=== PATIENT | female | born 1940 | race Caucasian/White ===

== ENCOUNTER 2017-11-14 12:10 | Inpatient (IN) ==
[2017-11-14] MEDS ORDERED: Sod Chloride 0.9% Inj 1,000 ML IV.SIG ONE (12:55)
--- NOTE | 2017-11-14 13:06 | ED ---
HPI General Chief complaint: GI Bleed Stated complaint: GI Complaint Time Seen by Provider: 11/14/17 12:49 Source: patient and EMS Mode of arrival: EMS Limitations: no limitations History of Present Illness HPI Narrative: 77-year-old female presents the ED via EMS after being found down at home by her brother. The brother told EMS that he saw the patient yesterday morning around 11am. On presentation the patient is shivering, cool to the touch, covered in coffee ground emesis and bloody stool. She is oriented to self and situation. She states that "I saw a lot of blood in my stool last night." She denies headache, dizziness, vision changes, CP, SOB, cough, abdominal pain, dysuria, limitations to ROM of the extremities. The patient endorses drinking "sangria a few days a week." EMS states that there was smeared blood on the floors of her home as if she had been sliding around the floor. The patients brother reported to EMS that the patient "has never been to a doctor and takes supplements from the feed store." Related Data Home Medications Medication Instructions Recorded Confirmed No Known Home Medications 11/14/17 11/14/17 Allergies Allergy/AdvReac Type Severity Reaction Status Date / Time No Known Allergies Allergy Verified 11/14/17 13:02 Review of Systems ROS: all other systems reviewed are negative [facility] Medical History Medical History Patient denies medical problems (Acute) Surgical History Surgical History No history of previous surgery (Acute) Social History Social History Substance History: No History of Abuse Smoking Status: Never smoker How Often Do You Have a Drink Containing Alcohol: 2 to 3 times a week Recent Travel in [facility] within the Last 8 Weeks: No Recent Out of Country Travel within the Last 8 Weeks: No Exam Narrative Exam Narrative: GENERAL: Well developed thin white female, shivering, covered in feces and vomit, in NAD. SKIN: Focused skin assessment cool, dry. Multiple ecchymosis noted on the posterior aspect of the extremities and back. HEAD: Atraumatic. Normocephalic. EYES: Pupils equal and round. No scleral icterus. No injection or drainage. ENT: No nasal bleeding or discharge. Mucous membranes pink and dry. NECK: Trachea midline. No JVD. CARDIOVASCULAR: Regular rate and rhythm. No murmur appreciated. RESPIRATORY: No accessory muscle use. Clear to auscultation. Breath sounds clear and equal bilaterally. GASTROINTESTINAL: Abdomen soft, non-tender, nondistended. Active bowel sounds. Hepatic and splenic margins not palpable. MUSCULOSKELETAL: No obvious deformities. No clubbing. No cyanosis. No edema. Palpable pulses on all extremities. No TTP or limited R OM of the upper and lower extremities bilaterally. Neurovascularly intact distally on each extremity. NEUROLOGICAL: Awake, confused. No obvious cranial nerve deficits. Motor grossly within normal limits. Normal speech. PSYCHIATRIC: Confused, cooperative, follows commands. Course Initial Documented Vital Signs Temperature 90.5 F L 11/14/17 12:47 Pulse Rate 58 L 11/14/17 12:47 Respiratory Rate 24 11/14/17 12:47 Blood Pressure 117/78 11/14/17 12:47 Last Documented Vital Signs Temperature 97.6 F 11/14/17 15:40 Pulse Rate 79 11/14/17 15:40 Respiratory Rate 18 11/14/17 15:40 Blood Pressure 129/67 11/14/17 15:40 Pulse Oximetry 100 11/14/17 15:40 Medical Decision Making KLEVER Attestation KLEVER supervised visit: Yes Attestation: I, Dr. Padron, have reviewed the advance practice practitioner' s documentation and am in agreement, met with the patient face to face, made the diagnosis, and the medical decision making was done by me. *My assessment and Findings: 77-year-old female who presents to the emergency department via EMS after she was found lying on her floor with an apparent GI bleed. According to family members, the brother saw the patient last night, normal, at 11 PM. The patient is a somewhat limited historian, does not know how many days she has been lying on the floor. She states she has been sliding around the floor for movement. The patient denies taking any anticoagulants. Upon arrival the patient was noted to have a core rectal temperature 90.5 with shivering. He was also noted the patient had large areas of ecchymosis on the back and lower extremities bilaterally as well as the upper extremities. It appears the patient has had multiple falls and/or trauma. 77-year-old female presents to the ED via EMS after being found down in her house for unknown time. Per EMS report the patient was covered in feces and vomit and blood. There is some evidence that the patient had been sliding around on the floor. On arrival the patient is alert, oriented to self and situation. She is unable to give much meaningful history other than "I had a lot of blood in my stool last night." She denies headache, dizziness, chest pain, palpitations, shortness of breath, abdominal pain. She admits to drinking alcohol nearly daily. Patient is cool and shivering, rectal temp of 90.5. Warm fluids and warming blanket were placed. Patient was administered loading dose of Protonix and drip was initiated. EKG reviewed reviewed by Dr. Padron as above. Troponin negative 1. CXR no acute findings per radiology read. Ammonia 62. CK: 400 CBC:WBC 16.9, 87.5% neutrophils, RBC 249. Hgb 8.6. CMP: BUN 55, creatinine 2.15. Potassium 3.4. Calcium 7.8, corrects when hypoalbuminemia is accounted for. No culture indicated of the UA. Tox screen positive for benzodiazepines. CT brain: Atrophy. Patient's brother arrives at bedside and states that the patient is a chronic heavy drinker. He reports that she has been confused over the last few days and he saw her around 11:00 yesterday afternoon. He states that she had a fall earlier last week but was not evaluated at that time. On recheck BP 131/75, pulse 80, temp improved to 96.9, O2 sats 100% on room air with respiratory rate of 18. Plan to admit the patient to the [facility]. I discussed this with the family member and patient who are agreeable. GI consult placed. I discussed the case with who agrees to accept the patient to the medicine service. [facility] Narrative Medical Screen Exam Complete: Yes Emergency Medical Condition: Yes Differential Diagnosis Differential Diagnosis: encephalopathy versus GI bleed versus anemia versus metabolic derangement versus rhabdomyolysis versus ICH versus ACS versus other Lab Data Result diagrams: 11/14/17 13:10 11/14/17 13:10 Lab Results 11/14/17 11/14/17 11/14/17 Range/Units 13:10 13:10 13:10 WBC 16.9 H (4.0-11.0) th/mm3 RBC 2.49 L (4.00-5.30) mil/mm3 Hgb 8.6 L (11.6-15.3) gm/dL Hct 25.8 L (35.0-46.0) % MCV 103.6 H (80.0-100.0) fL MCH 34.5 H (27.0-34.0) pg MCHC 33.3 (32.0-36.0) % RDW 14.5 (11.6-17.2) % Plt Count 197 (150-450) th/mm3 MPV 9.1 (7.0-11.0) fL Prelim Diff (Auto) Slide review pending Neut % (Auto) 87.5 H (16.0-70.0) % Lymph % (Auto) 6.9 L (9.0-44.0) % [place] % (Auto) 5.5 (0.0-8.0) % Eos % (Auto) 0.0 (0.0-4.0) % Baso % (Auto) 0.1 (0.0-2.0) % Neut # (Auto) 14.8 H (1.8-7.7) th/mm3 Lymph # (Auto) 1.2 (1.0-4.8) th/mm3 [place] # (Auto) 0.9 (0.0-0.9) th/mm3 Eos # (Auto) 0.0 (0.0-0.4) th/mm3 Baso # (Auto) 0.0 (0.0-0.2) th/mm3 WBC Differential Manual diff final Seg Neuts % (Manual) 88 H (16-70) % Band Neuts % (Manual) 7 H (0-6) % Lymphocytes % (Manual) 2 L (9-44) % Metamyelocytes % (Man) 2 H (0-1) % Promyelocytes % (Man) 1 H (0-0) % Abs Neuts (Manual) 16.6 H (1.8-7.7) th/mm3 Differential Comment . Platelet Estimate Normal (Normal) Platelet Morphology Normal (Normal) PT 12.0 H (9.8-11.6) sec INR 1.2 Ratio Sodium 140 (136-145) meq/L Potassium 3.4 L (3.5-5.1) meq/L Chloride 100 (98-107) meq/L Carbon Dioxide 20.3 L (21.0-32.0) meq/L Anion Gap 20 H (5-15) meq/L BUN 55 H (7-18) mg/dL Creatinine 2.15 H (0.50-1.00) mg/dL Estimated GFR 22 L (>89) mL/min POC Glucose (68-110) mg/dl Random Glucose 197 H (74-106) mg/dL Calcium 7.8 L (8.5-10.1) mg/dL Total Bilirubin 0.6 (0.2-1.0) mg/dL AST 42 H (15-37) U/L ALT 38 (10-53) U/L Alkaline Phosphatase 63 (45-117) U/L Ammonia (11-32) mcmol/L Total Creatine Kinase 400 H (26-192) U/L CK-MB (CK-2) 18.1 H (0.5-3.6) ng/mL CK-MB (CK-2) % 4.5 H* (0.0-4.0) % Troponin I 0.05 (0.02-0.05) ng/mL Total Protein 5.6 L (6.4-8.2) g/dL Albumin 2.7 L (3.4-5.0) g/dL Urine Color (Yellw/Straw) Urine Clarity (Clear) Urine pH (5.0-8.5) Ur Specific [place] (1.002-1.035) Urine Protein (Neg-Trace) mg/dL Urine Glucose (UA) (Negative) mg/dL Urine Ketones (Negative) mg/dL Urine Occult Blood (Negative) Urine Nitrate (Negative) Urine Bilirubin (Negative) Urine Urobilinogen (Less than 2) mg/dL Ur Leukocyte Esterase (Negative) Urine RBC (0-3) /hpf Urine WBC (0-5) /hpf Ur Squamous Epith Cells (0-5) /hpf Hyaline Casts (0-3) /lpf Urine Mucus (Occasional) /lpf Micro UA Comment Ur Microscopic Review Urine Culture Comments Urine Opiates Screen (Neg) Ur Barbiturates Screen (Neg) Ur Amphetamines Screen (Neg) U Benzodiazepines Scrn (Neg) Urine Cocaine Screen (Neg) U Cannabinoids Screen (Neg) Serum Alcohol Less than 3 (0-5) mg/dL Blood Type Blood Type Recheck Antibody Screen 11/14/17 11/14/17 11/14/17 Range/Units 13:10 13:10 13:10 WBC (4.0-11.0) th/mm3 RBC (4.00-5.30) mil/mm3 Hgb (11.6-15.3) gm/dL Hct (35.0-46.0) % MCV (80.0-100.0) fL MCH (27.0-34.0) pg MCHC (32.0-36.0) % RDW (11.6-17.2) % Plt Count (150-450) th/mm3 MPV (7.0-11.0) fL Prelim Diff (Auto) Neut % (Auto) (16.0-70.0) % Lymph % (Auto) (9.0-44.0) % [place] % (Auto) (0.0-8.0) % Eos % (Auto) (0.0-4.0) % Baso % (Auto) (0.0-2.0) % Neut # (Auto) (1.8-7.7) th/mm3 Lymph # (Auto) (1.0-4.8) th/mm3 [place] # (Auto) (0.0-0.9) th/mm3 Eos # (Auto) (0.0-0.4) th/mm3 Baso # (Auto) (0.0-0.2) th/mm3 WBC Differential Seg Neuts % (Manual) (16-70) % Band Neuts % (Manual) (0-6) % Lymphocytes % (Manual) (9-44) % Metamyelocytes % (Man) (0-1) % Promyelocytes % (Man) (0-0) % Abs Neuts (Manual) (1.8-7.7) th/mm3 Differential Comment Platelet Estimate (Normal) Platelet Morphology (Normal) PT (9.8-11.6) sec INR Ratio Sodium (136-145) meq/L Potassium (3.5-5.1) meq/L Chloride (98-107) meq/L Carbon Dioxide (21.0-32.0) meq/L Anion Gap (5-15) meq/L BUN (7-18) mg/dL Creatinine (0.50-1.00) mg/dL Estimated GFR (>89) mL/min POC Glucose 229 H (68-110) mg/dl Random Glucose (74-106) mg/dL Calcium (8.5-10.1) mg/dL Total Bilirubin (0.2-1.0) mg/dL AST (15-37) U/L ALT (10-53) U/L Alkaline Phosphatase (45-117) U/L Ammonia (11-32) mcmol/L Total Creatine Kinase Cancelled (26-192) U/L CK-MB (CK-2) (0.5-3.6) ng/mL CK-MB (CK-2) % (0.0-4.0) % Troponin I (0.02-0.05) ng/mL Total Protein (6.4-8.2) g/dL Albumin (3.4-5.0) g/dL Urine Color (Yellw/Straw) Urine Clarity (Clear) Urine pH (5.0-8.5) Ur Specific [place] (1.002-1.035) Urine Protein (Neg-Trace) mg/dL Urine Glucose (UA) (Negative) mg/dL Urine Ketones (Negative) mg/dL Urine Occult Blood (Negative) Urine Nitrate (Negative) Urine Bilirubin (Negative) Urine Urobilinogen (Less than 2) mg/dL Ur Leukocyte Esterase (Negative) Urine RBC (0-3) /hpf Urine WBC (0-5) /hpf Ur Squamous Epith Cells (0-5) /hpf Hyaline Casts (0-3) /lpf Urine Mucus (Occasional) /lpf Micro UA Comment Ur Microscopic Review Urine Culture Comments Urine Opiates Screen (Neg) Ur Barbiturates Screen (Neg) Ur Amphetamines Screen (Neg) U Benzodiazepines Scrn (Neg) Urine Cocaine Screen (Neg) U Cannabinoids Screen (Neg) Serum Alcohol (0-5) mg/dL Blood Type O Negative Blood Type Recheck Required Antibody Screen Negative 11/14/17 11/14/17 11/14/17 Range/Units 13:14 13:25 13:25 WBC (4.0-11.0) th/mm3 RBC (4.00-5.30) mil/mm3 Hgb (11.6-15.3) gm/dL Hct (35.0-46.0) % MCV (80.0-100.0) fL MCH (27.0-34.0) pg MCHC (32.0-36.0) % RDW (11.6-17.2) % Plt Count (150-450) th/mm3 MPV (7.0-11.0) fL Prelim Diff (Auto) Neut % (Auto) (16.0-70.0) % Lymph % (Auto) (9.0-44.0) % [place] % (Auto) (0.0-8.0) % Eos % (Auto) (0.0-4.0) % Baso % (Auto) (0.0-2.0) % Neut # (Auto) (1.8-7.7) th/mm3 Lymph # (Auto) (1.0-4.8) th/mm3 [place] # (Auto) (0.0-0.9) th/mm3 Eos # (Auto) (0.0-0.4) th/mm3 Baso # (Auto) (0.0-0.2) th/mm3 WBC Differential Seg Neuts % (Manual) (16-70) % Band Neuts % (Manual) (0-6) % Lymphocytes % (Manual) (9-44) % Metamyelocytes % (Man) (0-1) % Promyelocytes % (Man) (0-0) % Abs Neuts (Manual) (1.8-7.7) th/mm3 Differential Comment Platelet Estimate (Normal) Platelet Morphology (Normal) PT (9.8-11.6) sec INR Ratio Sodium (136-145) meq/L Potassium (3.5-5.1) meq/L Chloride (98-107) meq/L Carbon Dioxide (21.0-32.0) meq/L Anion Gap (5-15) meq/L BUN (7-18) mg/dL Creatinine (0.50-1.00) mg/dL Estimated GFR (>89) mL/min POC Glucose (68-110) mg/dl Random Glucose (74-106) mg/dL Calcium (8.5-10.1) mg/dL Total Bilirubin (0.2-1.0) mg/dL AST (15-37) U/L ALT (10-53) U/L Alkaline Phosphatase (45-117) U/L Ammonia 62 H (11-32) mcmol/L Total Creatine Kinase (26-192) U/L CK-MB (CK-2) (0.5-3.6) ng/mL CK-MB (CK-2) % (0.0-4.0) % Troponin I (0.02-0.05) ng/mL Total Protein (6.4-8.2) g/dL Albumin (3.4-5.0) g/dL Urine Color Kim (Yellw/Straw) Urine Clarity Cloudy H (Clear) Urine pH 5.0 (5.0-8.5) Ur Specific [place] 1.023 (1.002-1.035) Urine Protein 30 H (Neg-Trace) mg/dL Urine Glucose (UA) 50 (Negative) mg/dL Urine Ketones Trace H (Negative) mg/dL Urine Occult Blood Small H (Negative) Urine Nitrate Negative (Negative) Urine Bilirubin Negative (Negative) Urine Urobilinogen Less than 2 (Less than 2) mg/dL Ur Leukocyte Esterase Trace H (Negative) Urine RBC 1 (0-3) /hpf Urine WBC 4 (0-5) /hpf Ur Squamous Epith Cells 2 (0-5) /hpf Hyaline Casts 62 (0-3) /lpf Urine Mucus Moderate H (Occasional) /lpf Micro UA Comment Cath-culture not ind Ur Microscopic Review Not Reportable Urine Culture Comments Cath-cult not ind Urine Opiates Screen Neg (Neg) Ur Barbiturates Screen Neg (Neg) Ur Amphetamines Screen Neg (Neg) U Benzodiazepines Scrn Pos H (Neg) Urine Cocaine Screen Neg (Neg) U Cannabinoids Screen Neg (Neg) Serum Alcohol (0-5) mg/dL Blood Type Blood Type Recheck Antibody Screen Imaging Data Radiologist's impression: Chest X-Ray 11/14/17 12:53 CONCLUSION: 1. Negative portable chest. Head CT 11/14/17 12:55 CONCLUSION: 1. Atrophy. . ECG Data EKG Prior to Arrival: No Attestation: I personally reviewed and interpreted this ECG as follows: Interpretation: EKG reveals normal sinus rhythm with a rate of 68. Left bundle branch block. Wavy baseline. Discharge Plan Discharge Disposition Patient Disposition: 30 Still Patient Discharge Condition Condition: Serious Physicians Team ED Provider: Sanjeev Padron ED Midlevel Provider: Camila Dumont Primary Care Provider: UNKNOWN, Attending Provider: Smita Obrien Other Providers: Robbi Zamora Status ED Status: Admitted Patient
[2017-11-14] MEDS ORDERED: Sod Chloride 0.9% Inj 1,000 ML IV.CONT SCH (13:15)
[2017-11-14 13:27] LABS: Baso % (Auto) 0.1 % (0.0-2.0); Hematocrit 25.8 % (35.0-46.0); Hemoglobin 8.6 gm/dL (11.6-15.3); Lymph # (Auto) 1.2 th/mm3 (1.0-4.8); Lymph % (Auto) 6.9 % (9.0-44.0); Mean Corpuscular HGB Conc 33.3 % (32.0-36.0); Mean Corpuscular Hemoglobin 34.5 pg (27.0-34.0); Mean Corpuscular Volume 103.6 fL (80.0-100.0); Mean Platelet Volume 9.1 fL (7.0-11.0); Mono # (Auto) 0.9 th/mm3 (0.0-0.9); Mono % (Auto) 5.5 % (0.0-8.0); Neut # (Auto) 14.8 th/mm3 (1.8-7.7); Neut % (Auto) 87.5 % (16.0-70.0); Platelet Count 197 th/mm3 (150-450); Red Blood Count 2.49 mil/mm3 (4.00-5.30); Red Cell Distribution Width 14.5 % (11.6-17.2); White Blood Count 16.9 th/mm3 (4.0-11.0)
[2017-11-14 13:35] LABS: INR 1.2 Ratio
[2017-11-14 13:45] LABS: Alanine Aminotransferase 38 U/L (10-53); Albumin 2.7 g/dL (3.4-5.0); Anion Gap 20 meq/L (5-15); Aspartate Aminotransferase 42 U/L (15-37); Blood Urea Nitrogen 55 mg/dL (7-18); Calcium 7.8 mg/dL (8.5-10.1); Carbon Dioxide 20.3 meq/L (21.0-32.0); Chloride 100 meq/L (98-107); Glomerular Filtration Rate 22 mL/min (>89); Glucose,Random 197 mg/dL (74-106); Potassium 3.4 meq/L (3.5-5.1); Sodium 140 meq/L (136-145)
[2017-11-14 13:49] LABS: Alkaline Phosphatase 63 U/L (45-117); Creatine Kinase 400 U/L (26-192); Total Protein 5.6 g/dL (6.4-8.2); Troponin I 0.05 ng/mL (0.02-0.05)
[2017-11-14] MEDS ORDERED: Haloperidol Inj 5 MG/ML Ampul IV.PUSH PRN (13:56)
[2017-11-14] MEDS ORDERED: LORazepam 1 MG Tablet PO PRN (13:56)
[2017-11-14 13:59] LABS: Amphetamine Screen,Urine Neg (Neg); Barbiturate Screen,Urine Neg (Neg); Cannabinoid Screen,Urine Neg (Neg); Cocaine Screen,Urine Neg (Neg)
[2017-11-14 14:00] LABS: Lymphocytes 2 % (9-44); Metamyelocytes 2 % (0-1); Promyelocyte 1 % (0-0)
[2017-11-14 14:01] LABS: Platelet Estimate Normal (Normal); Platelet Morphology Normal (Normal)
[2017-11-14 14:04] LABS: Creatine Kinase MB 18.1 ng/mL (0.5-3.6)
[2017-11-14 14:04] LABS: Bilirubin,Urine Negative (Negative); Clarity,Urine Cloudy (Clear); Color,Urine Amber (Yellw/Straw); Glucose,Urine (UA) 50 mg/dL (Negative); Hyaline Casts,Urine 62 /lpf (0-3); Leukocyte Esterase,Urine Trace (Negative); Mucus,Urine Moderate /lpf (Occasional); Nitrite,Urine Negative (Negative); Opiate Screen,Urine Neg (Neg); Specific Gravity,Urine 1.023 (1.002-1.035); Squamous Epithelial Cell,Urine 2 /hpf (0-5)
[2017-11-14 14:08] LABS: CKMB Percent 4.5 % (0.0-4.0)
[2017-11-14] MEDS ORDERED: Pantoprazole Inj 40 MG Vial IV.PUSH ONE (14:08)
--- NOTE | 2017-11-14 14:37 | XR ---
EXAM DATE: 11/14/2017 1:50 PM EDT AGE/SEX: 77 years / Female INDICATIONS: Shortness of breath. CLINICAL DATA: This is the patient's initial encounter. Patient reports that signs and symptoms have been present for 1 day and indicates a pain score of Nonresponsive. MEDICAL/SURGICAL HISTORY: Non-responsive. Non-responsive. COMPARISON: No prior exams available for comparison. FINDINGS: No significant focal pleural or parenchymal opacities. Tortuous thoracic aorta. Cardiac silhouette is within normal limits. Bony thorax is intact. CONCLUSION: 1. Negative portable chest. Electronically signed by: Alvarado Christopher MD 11/14/2017 2:35 PM EDT
[2017-11-14] MEDS: Pantoprazole Inj 80 MG in Sodium Chlor 0.9% Inj 100 ML IV.CONT SCH (15:17)
--- NOTE | 2017-11-14 15:30 | CT ---
EXAM DATE: 11/14/2017 3:26 PM EDT AGE/SEX: 77 years / Female INDICATIONS: Altered mental status. Found on floor. CLINICAL DATA: This is the patient's initial encounter. Patient reports that signs and symptoms have been present for 1 day and indicates a pain score of 0/10. MEDICAL/SURGICAL HISTORY: None. None. RADIATION DOSE: 52.69 CTDI (mGy) COMPARISON: No prior exams available for comparison. TECHNIQUE: CT of the head without contrast. Using automated exposure control and adjustment of the mA and/or kV according to patient size, radiation dose was kept as low as reasonably achievable to ob tain optimal diagnostic quality images. DICOM format image data is available electronically for revi ew and comparison. FINDINGS: There is mild diffuse prominence of the CSF spaces, ventricles and cisterns. No signs of acute hemorr eber, mass or acute infarction. Vascular calcifications are seen. No fractures. CONCLUSION: 1. Atrophy. . Electronically signed by: Angel Chacko MD 11/14/2017 3:28 PM EDT
--- NOTE | 2017-11-14 16:33 | P.HPIM ---
History of Present Illness Primary Care Physician: UNKNOWN Chief Complaint: rectal bleed History of Present Illness: patient is a 77-year-old female presents the ED via EMS after being found down at home by her brother. patient is not a good historian but the brother told EMS that he saw the patient yesterday morning around 11am. On presentation the patient was shivering, cool to the touch, covered in coffee ground emesis and bloody stool. She is oriented to self and situation. she has mild generalized abdominal pain but denies nausea. Inpatient Certification: I certify that the inpatient services were ordered in accordance with Medicare regulations governing the order. This includes certification that hospital inpatient services are reasonable and necessary and in the case of services not specified as inpatient-only under 42 CFR 419.22(n), that they are appropriately provided as inpatient services in accordance to with the 2-midnight benchmark under 43 CFR 412.3(e) Review of Systems All other systems reviewed negative except as stated in HPI [facility] - History History Provided By: Patient, Section Hand Helper / EMT - Medical History Medical History: Medical History (Last Updated 11/14/17 @ 12:49 by Candace Chiang) Patient denies medical problems - Surgical History Surgical History: Surgical History (Last Updated 11/14/17 @ 12:50 by Candace Chiang) No history of previous surgery - Tobacco History Smoking Status: Never smoker - Alcohol History How Often Do You Have a Drink Containing Alcohol: 2 to 3 times a week - Substance Use History Substance History: No History of Abuse - Travel History Recent Travel in the [place] Within the Last 8 Weeks: No Recent Travel Out of the Country Within the Last 8 Weeks: No - Immunization History Tetanus Immunization: Unsure Hx Influenza Vaccine This Season: No Medications and Allergies Active Medications: Active Medications Haloperidol Lactate (Haldol Inj) 1 mg IV.PUSH Q15M PRN PRN Reason: for severe agitation Pantoprazole Sodium 80 mg/ (Sodium Chloride) 100 mls @ 10 mls/hr IV.CONT CONT [place] Last Admin: 11/14/17 15:17 Dose: 10 mls/hr Lorazepam (Ativan Inj) 2 mg IV.PUSH Q15M PRN PRN Reason: for CIWA > 20 Lorazepam (Ativan Inj) 1 mg IV.PUSH Q4H PRN PRN Reason: for CIWA 8-10 Lorazepam (Ativan Inj) 2 mg IV.PUSH Q1H PRN PRN Reason: for CIWA 15-20 Lorazepam (Ativan Inj) 2 mg IV.PUSH Q2H PRN PRN Reason: for CIWA 11-14 Lorazepam (Ativan) 1 mg PO Q4H PRN PRN Reason: for CIWA 8-10 Lorazepam (Ativan) 2 mg PO Q2H PRN PRN Reason: for CIWA 11-14 Sodium Chloride (Ns Flush) 2 ml IV.FLUSH PRN PRN PRN Reason: FLUSH AFTER USING IV ACCESS Last Admin: 11/14/17 13:35 Dose: 2 ml Allergies Allergy/AdvReac Type Severity Reaction Status Date / Time No Known Allergies Allergy Verified 11/14/17 13:02 Home Medications Medication Instructions Recorded Confirmed Type No Known Home Medications 11/14/17 11/14/17 History Exam Vital signs: Vital Signs 11/14/17 12:47 11/14/17 12:53 11/14/17 13:02 Temperature 90.5 F L Pulse Rate 58 L 58 L 72 Respiratory Rate 24 20 Blood Pressure 117/78 160/63 H Pulse Oximetry 99 11/14/17 13:06 11/14/17 13:46 11/14/17 14:02 Temperature 90.5 F L Pulse Rate 80 Respiratory Rate 18 Blood Pressure 131/75 Pulse Oximetry 99 100 11/14/17 14:10 11/14/17 15:40 Temperature 96.1 F L 97.6 F Pulse Rate 79 Respiratory Rate 18 Blood Pressure 129/67 Pulse Oximetry 100 Intake & Output 11/13/17 11/14/17 11/14/17 18:59 06:59 18:59 Intake Total 1999 Balance 1999 Weight 58.967 kg Intake: IV 1999 NS Inj 1,000 ML @ 1000 mls/hr 1000 / 1000 IV.CONT .Q1H [place] Rx#:[id number] NS Inj 1,000 ML @ Wide Open IV. 1000 / 1000 SIG BOLUS ONE Rx#:[id number] - Constitutional no acute distress - Routine HEENT Exam Eye: Present: PERRL - Routine Neck Exam Present: full ROM - Routine Respiratory Exam Present: CTA bilaterally - Routine Cardiovascular Exam Present: RRR - Routine Abdominal Exam Present: soft - Routine Extremities Exam Comments: no pedal edema. - Routine Neurological Exam Present: alert oriented to person and partly to place but not to time. Results - Labs CBC & Chem 7: 11/14/17 13:10 11/14/17 13:10 Labs: Short CBC 11/14/17 Range/Units 13:10 WBC 16.9 H (4.0-11.0) th/mm3 Hgb 8.6 L (11.6-15.3) gm/dL Hct 25.8 L (35.0-46.0) % Plt Count 197 (150-450) th/mm3 BMP 11/14/17 13:10 Sodium 140 Potassium 3.4 L Chloride 100 Carbon Dioxide 20.3 L BUN 55 H Creatinine 2.15 H Calcium 7.8 L Cardiac Enzymes 11/14/17 11/14/17 Range/Units 13:10 13:10 Total Creatine Kinase 400 H Cancelled (26-192) U/L CK-MB (CK-2) 18.1 H (0.5-3.6) ng/mL Troponin I 0.05 (0.02-0.05) ng/mL Liver Function 11/14/17 Range/Units 13:10 Total Bilirubin 0.6 (0.2-1.0) mg/dL AST 42 H (15-37) U/L ALT 38 (10-53) U/L Alkaline Phosphatase 63 (45-117) U/L Albumin 2.7 L (3.4-5.0) g/dL Urine 11/14/17 Range/Units 13:25 Urine Color Kim (Yellw/Straw) Urine Clarity Cloudy H (Clear) Urine pH 5.0 (5.0-8.5) Ur Specific [place] 1.023 (1.002-1.035) Urine Protein 30 H (Neg-Trace) mg/dL Urine Glucose (UA) 50 (Negative) mg/dL - Imaging Impressions Chest X-Ray 11/14/17 12:53 CONCLUSION: 1. Negative portable chest. Head CT 11/14/17 12:55 CONCLUSION: 1. Atrophy. . Caprini VTE Risk Assessment Caprini VTE Risk Assessment: Moderate/High Risk (score >= 2) VTE Pharmacological Exception Reason: High risk for bleeding Caprini Risk Assessment Model: Point Value = 1 Point Value = 2 Point Value = 3 Point Value = 5 Age 41-60 Minor surgery BMI > 25 kg/m2 Swollen legs Varicose veins or History of unexplained or recurrent spontaneous Oral contraceptives or hormone replacement Sepsis (< 1 month) Serious lung disease, including pneumonia (< 1 month) Abnormal pulmonary function Acute myocardial infarction Congestive heart failure (< 1 month) History of inflammatory bowel disease Medical patient at bed rest Age 61-74 Arthroscopic surgery Major open surgery (> 45 min) Laparoscopic surgery (> 45 min) Malignancy Confined to bed (> 72 hours) Immobilizing plaster cast Central venous access Age >= 75 History of VTE Family history of VTE Factor V Leiden Prothrombin [id number] Lupus anticoagulant Anticardiolipin antibodies Elevated serum homocysteine Heparin-induced thrombocytopenia Other congenital or acquired thrombophilia Stroke (< 1 month) Elective arthroplasty Hip, pelvis, or leg fracture Acute spinal cord injury (< 1 month) Prophylaxis Regimen: Total Risk Factor Score Risk Level Prophylaxis Regimen 0-1 Low Early ambulation 2 Moderate Order ONE of the following: *Sequential Compression Device (SCD) *Heparin 5000 units SQ BID 3-4 Higher Order ONE of the following medications: *Heparin 5000 units SQ TID *Enoxaparin/Lovenox 40 mg SQ daily (WT < 150 kg, CrCl > 30 mL/min) *Enoxaparin/Lovenox 30 mg SQ daily (WT < 150 kg, CrCl > 10-29 mL/min) *Enoxaparin/Lovenox 30 mg SQ BID (WT < 150 kg, CrCl > 30 mL/min) AND/OR *Sequential Compression Device (SCD) 5 or more Highest Order ONE of the following medications: *Heparin 5000 units SQ TID (Preferred with Epidurals) *Enoxaparin/Lovenox 40 mg SQ daily (WT < 150 kg, CrCl > 30 mL/min) *Enoxaparin/Lovenox 30 mg SQ daily (WT < 150 kg, CrCl > 10-29 mL/min) *Enoxaparin/Lovenox 30 mg SQ BID (WT < 150 kg, CrCl > 30 mL/min) AND *Sequential Compression Device (SCD) Assessment and Plan - Plan A/P - rectal bleed keep NPO and start on IV fluid- continue to monitor H/H closely- continue PPI and consult GI. -renal insufficiency with unknown duration; continue IV fluid and monitor the renal function and electrolytes. -alcohol abuse; started on CIWA- start on Thiamine. -leukocytosis- reactive?- will monitor; CBC in am. -mild rhabdomyolysis- continue IV fluid- recheck CPK in am. -DVT prophylaxis with SCD's- no chemical prophylaxis due to GI bleed. Discussed Condition With: ER and the patient.
--- NOTE | 2017-11-14 17:22 | P.CONGI ---
History of Present Illness Consult date: 11/14/17 Consult reason: Coffee-ground emesis and rectal bleeding Chief complaint: hyperammonemia, GI bleed, anemia History of Present Illness: This is a 77-year-old female who came into the emergency room for evaluation on 11/14/2017 to the record she was found at home by her brother approximately 24 hours ago covered in coffee-ground emesis and bloody stool. Patient has no recollection during that period of time and still has some mild altered mental status probably secondary to an ammonia level of 62. Patient does now note some dark brown stool with dark blood, unsure of timing and number of stools. Patient does note dizziness, onset approximately 2 weeks ago but currently denies any nausea. Current hemoglobin 8.6, PT/INR 1.2, leukocytosis with elevated white count 16.9, ammonia level 62, bilirubin normal at 0.6, AST 42, ALT 38, and positive CK at 4.5. Patient denies any chest pains a positive CPK could be related to some rhabdomyolysis, and elevated ammonia level as well as is her mild elevation of AST could be related to her alcohol consumption which she states has been increased amounts over the past few months. Patient denies any previous EGD or colonoscopy and no family history of colon cancer. Gastroenterology was consulted to assist with patient's symptom management and a plan of care for stabilization. Patient denies any dyspepsia and is a poor historian. 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 - Medical History Medical History: Medical History (Last Updated 11/14/17 @ 12:49 by Candace Chiang) Patient denies medical problems - Surgical History Surgical History: Surgical History (Last Updated 11/14/17 @ 12:50 by Candace Chiang) No history of previous surgery - Tobacco History Smoking Status: Never smoker - Alcohol History How Often Do You Have a Drink Containing Alcohol: 2 to 3 times a week - Substance Use History Substance History: No History of Abuse - Travel History Recent Travel in the [facility] Within the Last 8 Weeks: No Recent Travel Out of the Country Within the Last 8 Weeks: No - Immunization History Tetanus Immunization: Unsure Hx Influenza Vaccine This Season: No <Ruba Uribe - Last Filed: 11/14/17 17:26> - Medical History Medical History: Medical History (Last Updated 11/14/17 @ 12:49 by Candace Chiang) Patient denies medical problems - Surgical History Surgical History: Surgical History (Last Updated 11/14/17 @ 12:50 by Candace Chiang) No history of previous surgery <Robbi Zamora - Last Filed: 11/14/17 20:02> Medications and Allergies Active Medications: Active Medications Haloperidol Lactate (Haldol Inj) 1 mg IV.PUSH Q15M PRN PRN Reason: for severe agitation Pantoprazole Sodium 80 mg/ (Sodium Chloride) 100 mls @ 10 mls/hr IV.CONT CONT [place] Last Admin: 11/14/17 15:17 Dose: 10 mls/hr Sodium Chloride (Ns Inj) 1,000 mls @ 84 mls/hr IV.CONT .[id number] [place] Thiamine HCl 100 mg/ Sodium (Chloride) 101 mls @ 100 mls/hr IV.SIG DAILY [place] Lorazepam (Ativan Inj) 2 mg IV.PUSH Q15M PRN PRN Reason: for CIWA > 20 Lorazepam (Ativan Inj) 1 mg IV.PUSH Q4H PRN PRN Reason: for CIWA 8-10 Lorazepam (Ativan Inj) 2 mg IV.PUSH Q1H PRN PRN Reason: for CIWA 15-20 Lorazepam (Ativan Inj) 2 mg IV.PUSH Q2H PRN PRN Reason: for CIWA 11-14 Lorazepam (Ativan) 1 mg PO Q4H PRN PRN Reason: for CIWA 8-10 Lorazepam (Ativan) 2 mg PO Q2H PRN PRN Reason: for CIWA 11-14 Pantoprazole Sodium (Protonix Inj) 40 mg IV.PUSH Q24H [place] Sodium Chloride (Ns Flush) 2 ml IV.FLUSH PRN PRN PRN Reason: FLUSH AFTER USING IV ACCESS Last Admin: 11/14/17 13:35 Dose: 2 ml <Ruba Uribe - Last Filed: 11/14/17 17:26> Active Medications: Active Medications Haloperidol Lactate (Haldol Inj) 1 mg IV.PUSH Q15M PRN PRN Reason: for severe agitation Pantoprazole Sodium 80 mg/ (Sodium Chloride) 100 mls @ 10 mls/hr IV.CONT CONT [place] Last Admin: 11/14/17 15:17 Dose: 10 mls/hr Sodium Chloride (Ns Inj) 1,000 mls @ 84 mls/hr IV.CONT .[id number] [place] Thiamine HCl 100 mg/ Sodium (Chloride) 101 mls @ 100 mls/hr IV.SIG DAILY [place] Octreotide Acetate 500 mcg/ (Sodium Chloride) 500.5 mls @ 25.02 mls/hr IV.CONT .Q20H1M [place] Lorazepam (Ativan Inj) 2 mg IV.PUSH Q15M PRN PRN Reason: for CIWA > 20 Lorazepam (Ativan Inj) 1 mg IV.PUSH Q4H PRN PRN Reason: for CIWA 8-10 Lorazepam (Ativan Inj) 2 mg IV.PUSH Q1H PRN PRN Reason: for CIWA 15-20 Lorazepam (Ativan Inj) 2 mg IV.PUSH Q2H PRN PRN Reason: for CIWA 11-14 Lorazepam (Ativan) 1 mg PO Q4H PRN PRN Reason: for CIWA 8-10 Lorazepam (Ativan) 2 mg PO Q2H PRN PRN Reason: for CIWA 11-14 Sodium Chloride (Ns Flush) 2 ml IV.FLUSH PRN PRN PRN Reason: FLUSH AFTER USING IV ACCESS Last Admin: 11/14/17 13:35 Dose: 2 ml <Robbi Zamora - Last Filed: 11/14/17 20:02> Allergies Allergy/AdvReac Type Severity Reaction Status Date / Time No Known Allergies Allergy Verified 11/14/17 13:02 Home Medications Medication Instructions Recorded Confirmed Type No Known Home Medications 11/14/17 11/14/17 History Exam Vital signs: Vital Signs 11/14/17 12:47 11/14/17 12:53 11/14/17 13:02 Temperature 90.5 F L Pulse Rate 58 L 58 L 72 Respiratory Rate 24 20 Blood Pressure 117/78 160/63 H Pulse Oximetry 99 11/14/17 13:06 11/14/17 13:46 11/14/17 14:02 Temperature 90.5 F L Pulse Rate 80 Respiratory Rate 18 Blood Pressure 131/75 Pulse Oximetry 99 100 11/14/17 14:10 11/14/17 15:40 Temperature 96.1 F L 97.6 F Pulse Rate 79 Respiratory Rate 18 Blood Pressure 129/67 Pulse Oximetry 100 Intake & Output 11/13/17 11/14/17 11/14/17 18:59 06:59 18:59 Intake Total 1999 Balance 1999 Weight 58.967 kg Intake: IV 1999 NS Inj 1,000 ML @ 1000 mls/hr 1000 / 1000 IV.CONT .Q1H [place] Rx#:[id number] NS Inj 1,000 ML @ Wide Open IV. 1000 / 1000 SIG BOLUS ONE Rx#:[id number] Other: # Incontinent Bowel Movements 1 - Constitutional mild distress, thin, cachectic - Routine HEENT Exam Head: Present: normocephalic ENT: Present: mucous membranes dry - Routine Neck Exam Present: supple - Routine Respiratory Exam Present: accessory muscle use (No obvious shortness of breath at rest) - Routine Cardiovascular Exam Present: S1, S2 - Routine Abdominal Exam Present: soft (No chest pain flat, no obvious abdominal pain to light palpation , incontinent loose stool, dark) - Routine Skin Exam Present: dry (Thin turgor) - Routine Neurological Exam Present: altered mental status (Answers a few simple questions but overall poor historian) <Ruba Uribe - Last Filed: 11/14/17 17:26> Vital signs: Vital Signs 11/14/17 12:47 11/14/17 12:53 11/14/17 13:02 Temperature 90.5 F L Pulse Rate 58 L 58 L 72 Respiratory Rate 24 20 Blood Pressure 117/78 160/63 H Pulse Oximetry 99 11/14/17 13:06 11/14/17 13:46 11/14/17 14:02 Temperature 90.5 F L Pulse Rate 80 Respiratory Rate 18 Blood Pressure 131/75 Pulse Oximetry 99 100 11/14/17 14:10 11/14/17 15:40 Temperature 96.1 F L 97.6 F Pulse Rate 79 Respiratory Rate 18 Blood Pressure 129/67 Pulse Oximetry 100 Intake & Output 11/14/17 11/14/17 11/15/17 06:59 18:59 06:59 Intake Total 1999 Balance 1999 Weight 58.967 kg Intake: IV 1999 NS Inj 1,000 ML @ 1000 mls/hr 1000 / 1000 IV.CONT .Q1H [place] Rx#:[id number] NS Inj 1,000 ML @ Wide Open IV. 1000 / 1000 SIG BOLUS ONE Rx#:[id number] Other: # Incontinent Bowel Movements 1 <Robbi Zamora - Last Filed: 11/14/17 20:02> Results - Labs CBC & Chem 7: 11/14/17 13:10 11/14/17 13:10 Labs: Laboratory Results - last 24 hr 11/14/17 11/14/17 11/14/17 13:10 13:10 13:10 WBC 16.9 H RBC 2.49 L Hgb 8.6 L Hct 25.8 L MCV 103.6 H MCH 34.5 H MCHC 33.3 RDW 14.5 Plt Count 197 MPV 9.1 Prelim Diff (Auto) Slide review pending Neut % (Auto) 87.5 H Lymph % (Auto) 6.9 L [place] % (Auto) 5.5 Eos % (Auto) 0.0 Baso % (Auto) 0.1 Neut # (Auto) 14.8 H Lymph # (Auto) 1.2 [place] # (Auto) 0.9 Eos # (Auto) 0.0 Baso # (Auto) 0.0 WBC Differential Manual diff final Seg Neuts % (Manual) 88 H Band Neuts % (Manual) 7 H Lymphocytes % (Manual) 2 L Metamyelocytes % (Man) 2 H Promyelocytes % (Man) 1 H Abs Neuts (Manual) 16.6 H Differential Comment . Platelet Estimate Normal Platelet Morphology Normal PT 12.0 H INR 1.2 Sodium 140 Potassium 3.4 L Chloride 100 Carbon Dioxide 20.3 L Anion Gap 20 H BUN 55 H Creatinine 2.15 H Estimated GFR 22 L POC Glucose Random Glucose 197 H Calcium 7.8 L Total Bilirubin 0.6 AST 42 H ALT 38 Alkaline Phosphatase 63 Ammonia Total Creatine Kinase 400 H CK-MB (CK-2) 18.1 H CK-MB (CK-2) % 4.5 H* Troponin I 0.05 Total Protein 5.6 L Albumin 2.7 L Urine Color Urine Clarity Urine pH Ur Specific [place] Urine Protein Urine Glucose (UA) Urine Ketones Urine Occult Blood Urine Nitrate Urine Bilirubin Urine Urobilinogen Ur Leukocyte Esterase Urine RBC Urine WBC Ur Squamous Epith Cells Hyaline Casts Urine Mucus Micro UA Comment Ur Microscopic Review Urine Culture Comments Urine Opiates Screen Ur Barbiturates Screen Ur Amphetamines Screen U Benzodiazepines Scrn Urine Cocaine Screen U Cannabinoids Screen Serum Alcohol Less than 3 Blood Type Blood Type Recheck Antibody Screen 11/14/17 11/14/17 11/14/17 13:10 13:10 13:10 WBC RBC Hgb Hct MCV MCH MCHC RDW Plt Count MPV Prelim Diff (Auto) Neut % (Auto) Lymph % (Auto) [place] % (Auto) Eos % (Auto) Baso % (Auto) Neut # (Auto) Lymph # (Auto) [place] # (Auto) Eos # (Auto) Baso # (Auto) WBC Differential Seg Neuts % (Manual) Band Neuts % (Manual) Lymphocytes % (Manual) Metamyelocytes % (Man) Promyelocytes % (Man) Abs Neuts (Manual) Differential Comment Platelet Estimate Platelet Morphology PT INR Sodium Potassium Chloride Carbon Dioxide Anion Gap BUN Creatinine Estimated GFR POC Glucose 229 H Random Glucose Calcium Total Bilirubin AST ALT Alkaline Phosphatase Ammonia Total Creatine Kinase Cancelled CK-MB (CK-2) CK-MB (CK-2) % Troponin I Total Protein Albumin Urine Color Urine Clarity Urine pH Ur Specific [place] Urine Protein Urine Glucose (UA) Urine Ketones Urine Occult Blood Urine Nitrate Urine Bilirubin Urine Urobilinogen Ur Leukocyte Esterase Urine RBC Urine WBC Ur Squamous Epith Cells Hyaline Casts Urine Mucus Micro UA Comment Ur Microscopic Review Urine Culture Comments Urine Opiates Screen Ur Barbiturates Screen Ur Amphetamines Screen U Benzodiazepines Scrn Urine Cocaine Screen U Cannabinoids Screen Serum Alcohol Blood Type O Negative Blood Type Recheck Required Antibody Screen Negative 11/14/17 11/14/17 11/14/17 13:14 13:25 13:25 WBC RBC Hgb Hct MCV MCH MCHC RDW Plt Count MPV Prelim Diff (Auto) Neut % (Auto) Lymph % (Auto) [place] % (Auto) Eos % (Auto) Baso % (Auto) Neut # (Auto) Lymph # (Auto) [place] # (Auto) Eos # (Auto) Baso # (Auto) WBC Differential Seg Neuts % (Manual) Band Neuts % (Manual) Lymphocytes % (Manual) Metamyelocytes % (Man) Promyelocytes % (Man) Abs Neuts (Manual) Differential Comment Platelet Estimate Platelet Morphology PT INR Sodium Potassium Chloride Carbon Dioxide Anion Gap BUN Creatinine Estimated GFR POC Glucose Random Glucose Calcium Total Bilirubin AST ALT Alkaline Phosphatase Ammonia 62 H Total Creatine Kinase CK-MB (CK-2) CK-MB (CK-2) % Troponin I Total Protein Albumin Urine Color [place] Urine Clarity Cloudy H Urine pH 5.0 Ur Specific [place] 1.023 Urine Protein 30 H Urine Glucose (UA) 50 Urine Ketones Trace H Urine Occult Blood Small H Urine Nitrate Negative Urine Bilirubin Negative Urine Urobilinogen Less than 2 Ur Leukocyte Esterase Trace H Urine RBC 1 Urine WBC 4 Ur Squamous Epith Cells 2 Hyaline Casts 62 Urine Mucus Moderate H Micro UA Comment Cath-culture not ind Ur Microscopic Review Not Reportable Urine Culture Comments Cath-cult not ind Urine Opiates Screen Neg Ur Barbiturates Screen Neg Ur Amphetamines Screen Neg U Benzodiazepines Scrn Pos H Urine Cocaine Screen Neg U Cannabinoids Screen Neg Serum Alcohol Blood Type Blood Type Recheck Antibody Screen - Imaging Impressions Chest X-Ray 11/14/17 12:53 CONCLUSION: 1. Negative portable chest. Head CT 11/14/17 12:55 CONCLUSION: 1. Atrophy. . <Ruba Uribe M - Last Filed: 11/14/17 17:26> - Labs CBC & Chem 7: 11/14/17 13:10 11/14/17 13:10 Labs: Laboratory Results - last 24 hr 11/14/17 11/14/17 11/14/17 13:10 13:10 13:10 WBC 16.9 H RBC 2.49 L Hgb 8.6 L Hct 25.8 L MCV 103.6 H MCH 34.5 H MCHC 33.3 RDW 14.5 Plt Count 197 MPV 9.1 Prelim Diff (Auto) Slide review pending Neut % (Auto) 87.5 H Lymph % (Auto) 6.9 L [place] % (Auto) 5.5 Eos % (Auto) 0.0 Baso % (Auto) 0.1 Neut # (Auto) 14.8 H Lymph # (Auto) 1.2 [place] # (Auto) 0.9 Eos # (Auto) 0.0 Baso # (Auto) 0.0 WBC Differential Manual diff final Seg Neuts % (Manual) 88 H Band Neuts % (Manual) 7 H Lymphocytes % (Manual) 2 L Metamyelocytes % (Man) 2 H Promyelocytes % (Man) 1 H Abs Neuts (Manual) 16.6 H Differential Comment . Platelet Estimate Normal Platelet Morphology Normal PT 12.0 H INR 1.2 Sodium 140 Potassium 3.4 L Chloride 100 Carbon Dioxide 20.3 L Anion Gap 20 H BUN 55 H Creatinine 2.15 H Estimated GFR 22 L POC Glucose Random Glucose 197 H Calcium 7.8 L Total Bilirubin 0.6 AST 42 H ALT 38 Alkaline Phosphatase 63 Ammonia Total Creatine Kinase 400 H CK-MB (CK-2) 18.1 H CK-MB (CK-2) % 4.5 H* Troponin I 0.05 Total Protein 5.6 L Albumin 2.7 L Urine Color Urine Clarity Urine pH Ur Specific [place] Urine Protein Urine Glucose (UA) Urine Ketones Urine Occult Blood Urine Nitrate Urine Bilirubin Urine Urobilinogen Ur Leukocyte Esterase Urine RBC Urine WBC Ur Squamous Epith Cells Hyaline Casts Urine Mucus Micro UA Comment Ur Microscopic Review Urine Culture Comments Urine Opiates Screen Ur Barbiturates Screen Ur Amphetamines Screen U Benzodiazepines Scrn Urine Cocaine Screen U Cannabinoids Screen Serum Alcohol Less than 3 Blood Type Blood Type Recheck Antibody Screen 11/14/17 11/14/17 11/14/17 13:10 13:10 13:10 WBC RBC Hgb Hct MCV MCH MCHC RDW Plt Count MPV Prelim Diff (Auto) Neut % (Auto) Lymph % (Auto) [place] % (Auto) Eos % (Auto) Baso % (Auto) Neut # (Auto) Lymph # (Auto) [place] # (Auto) Eos # (Auto) Baso # (Auto) WBC Differential Seg Neuts % (Manual) Band Neuts % (Manual) Lymphocytes % (Manual) Metamyelocytes % (Man) Promyelocytes % (Man) Abs Neuts (Manual) Differential Comment Platelet Estimate Platelet Morphology PT INR Sodium Potassium Chloride Carbon Dioxide Anion Gap BUN Creatinine Estimated GFR POC Glucose 229 H Random Glucose Calcium Total Bilirubin AST ALT Alkaline Phosphatase Ammonia Total Creatine Kinase Cancelled CK-MB (CK-2) CK-MB (CK-2) % Troponin I Total Protein Albumin Urine Color Urine Clarity Urine pH Ur Specific [place] Urine Protein Urine Glucose (UA) Urine Ketones Urine Occult Blood Urine Nitrate Urine Bilirubin Urine Urobilinogen Ur Leukocyte Esterase Urine RBC Urine WBC Ur Squamous Epith Cells Hyaline Casts Urine Mucus Micro UA Comment Ur Microscopic Review Urine Culture Comments Urine Opiates Screen Ur Barbiturates Screen Ur Amphetamines Screen U Benzodiazepines Scrn Urine Cocaine Screen U Cannabinoids Screen Serum Alcohol Blood Type O Negative Blood Type Recheck Required Antibody Screen Negative 11/14/17 11/14/17 11/14/17 13:14 13:25 13:25 WBC RBC Hgb Hct MCV MCH MCHC RDW Plt Count MPV Prelim Diff (Auto) Neut % (Auto) Lymph % (Auto) [place] % (Auto) Eos % (Auto) Baso % (Auto) Neut # (Auto) Lymph # (Auto) [place] # (Auto) Eos # (Auto) Baso # (Auto) WBC Differential Seg Neuts % (Manual) Band Neuts % (Manual) Lymphocytes % (Manual) Metamyelocytes % (Man) Promyelocytes % (Man) Abs Neuts (Manual) Differential Comment Platelet Estimate Platelet Morphology PT INR Sodium Potassium Chloride Carbon Dioxide Anion Gap BUN Creatinine Estimated GFR POC Glucose Random Glucose Calcium Total Bilirubin AST ALT Alkaline Phosphatase Ammonia 62 H Total Creatine Kinase CK-MB (CK-2) CK-MB (CK-2) % Troponin I Total Protein Albumin Urine Color [place] Urine Clarity Cloudy H Urine pH 5.0 Ur Specific [place] 1.023 Urine Protein 30 H Urine Glucose (UA) 50 Urine Ketones Trace H Urine Occult Blood Small H Urine Nitrate Negative Urine Bilirubin Negative Urine Urobilinogen Less than 2 Ur Leukocyte Esterase Trace H Urine RBC 1 Urine WBC 4 Ur Squamous Epith Cells 2 Hyaline Casts 62 Urine Mucus Moderate H Micro UA Comment Cath-culture not ind Ur Microscopic Review Not Reportable Urine Culture Comments Cath-cult not ind Urine Opiates Screen Neg Ur Barbiturates Screen Neg Ur Amphetamines Screen Neg U Benzodiazepines Scrn Pos H Urine Cocaine Screen Neg U Cannabinoids Screen Neg Serum Alcohol Blood Type Blood Type Recheck Antibody Screen - Imaging Impressions Chest X-Ray 11/14/17 12:53 CONCLUSION: 1. Negative portable chest. Head CT 11/14/17 12:55 CONCLUSION: 1. Atrophy. . <Robbi Zamora - Last Filed: 11/14/17 20:02> Assessment and Plan (1) Hyperammonemia Status: Acute Code(s): E72.20 - Disorder of urea cycle metabolism, unspecified (2) GI bleed Status: Acute Code(s): K92.2 - Gastrointestinal hemorrhage, unspecified (3) Coffee ground emesis Status: Acute Code(s): K92.0 - Hematemesis (4) Rectal bleeding Status: Acute Code(s): K62.5 - Hemorrhage of anus and rectum - Plan 77-year-old borderline frail female with recent history of coffee-ground emesis and dark rectal bleeding. She was found on the floor per her brother approximately 24 hours ago and complained of being cold current hemoglobin 8.6. Also has complaints of weakness and dizziness over 2-week. Which is seem to worsen. Leukocytosis unspecified WBC count 16.9. GI bleed probable upper with coffee-ground emesis and some dark rectal blood. Patient does have elevated ammonia level at 62 and elevated transaminitis mild , AST level of 42, which could be related to her alcohol consumption, sangria wine according to the patient and the record. Patient states she drinks at least 3-4 times a week and states that she drinks way too much. Other labs include bilirubin normal at 0.6 and normal ALT at 38. Elevated CK level at 4.5 could be related to rhabdo since patient was found down on the floor by her brother. She denies any chest pain or acute shortness of breath No previous EGD or colonoscopy according to patient and no family history of colon cancer. Plan Diet okay for a few ice chips this p.m. otherwise n.p.o. Consent for EGD in the a.m. Monitor hemoglobin and transfuse as needed Recheck PT/INR in the a.m. Protonix drip and octreotide drip initiated Further recommendations to follow Patient was seen per myself and Dr. Zamora, note was written on his behalf <Ruba Uribe - Last Filed: 11/14/17 17:26> (1) Hyperammonemia Status: Acute Code(s): E72.20 - Disorder of urea cycle metabolism, unspecified (2) GI bleed Status: Acute Code(s): K92.2 - Gastrointestinal hemorrhage, unspecified (3) Coffee ground emesis Status: Acute Code(s): K92.0 - Hematemesis (4) Rectal bleeding Status: Acute Code(s): K62.5 - Hemorrhage of anus and rectum - Plan Seen and examined with QUALITY ASSURANCE INSPECTOR< no active bleeding. Iv protonix/octreotide. Monitor for bleeding. CT abd/pelvis once creatinine improves. EGD planned. Thank you The exam, history, and the medical decision-making described in the above note were completed with the assistance of the mid-level provider. I reviewed and agree with the findings presented. I attest that I had a [id number] encounter with the patient on the same day, and personally performed and documented my assessment and findings in the medical record. <Robbi Zamora - Last Filed: 11/14/17 20:02>
[2017-11-14] MEDS: Sod Chloride 0.9% Inj 1,000 ML IV.CONT SCH (22:24)
[2017-11-14] MEDS: Octreotide Inj 500 MCG in Sodium Chlor 0.9% Inj 500 ML IV.CONT SCH (22:25)
[2017-11-14 22:46] LABS: Hemoglobin 6.6 gm/dL (11.6-15.3)
[2017-11-14] MEDS ORDERED: Sodium Chlor 0.9% Inj 250 ML IV.SIG SCH (23:45)
[2017-11-15] MEDS: Pantoprazole Inj 80 MG in Sodium Chlor 0.9% Inj 100 ML IV.CONT SCH ×2 (05:22→21:02)
[2017-11-15] MEDS: Sod Chloride 0.9% Inj 1,000 ML IV.CONT SCH ×2 (06:08→23:37)
[2017-11-15] MEDS ORDERED: Sodium Chlor 0.9% Inj 500 ML IV.SIG PRN (08:36)
[2017-11-15] MEDS ORDERED: Chlorhexidine Gluconate 2% 1 Pack (2 Cloths) TOPICAL PRN (08:36)
[2017-11-15] MEDS ORDERED: Metoprolol Tartrate 25 MG Tablet PO PRN (08:36)
[2017-11-15] MEDS ORDERED: Pantoprazole Inj 40 MG Vial IV.PUSH SCH (09:00)
[2017-11-15] MEDS: Thiamine Inj 100 MG in Sodium Chlor 0.9% Inj 100 ML IV.SIG SCH (09:12)
--- NOTE | 2017-11-15 13:31 | P.PN ---
Subjective Interval history: Follow-up GI bleed Patient went for EGD Hemoglobin dropped, transfused Denies having abdominal pain No n/v/d/c. She has no tremors. Physical Exam Vital signs: Vital Signs 11/14/17 13:46 11/14/17 14:02 11/14/17 14:10 Temperature 96.1 F L Pulse Rate 80 Respiratory Rate 18 Blood Pressure 131/75 Pulse Oximetry 99 100 11/14/17 15:40 11/14/17 20:00 11/15/17 00:00 Temperature 97.6 F 97.6 F 97.8 F Pulse Rate 79 83 75 Respiratory Rate 18 18 18 Blood Pressure 129/67 111/58 L 94/52 L Pulse Oximetry 100 98 96 11/15/17 02:09 11/15/17 02:27 11/15/17 05:09 Temperature 97.8 F 97.7 F 97.9 F Pulse Rate 75 76 72 Respiratory Rate 18 18 18 Blood Pressure 94/52 L 101/54 L 122/57 L Pulse Oximetry 96 98 98 11/15/17 08:00 11/15/17 09:00 Temperature 97.9 F Pulse Rate 73 73 Respiratory Rate 19 Blood Pressure 126/62 Pulse Oximetry 97 Intake & Output 11/14/17 11/15/17 11/15/17 18:59 06:59 18:59 Intake Total 1999 500 / 500 1000 / 1000 Output Total 750 / 750 Balance 1999 -250 / -250 1000 / 1000 Weight 58.967 kg 65.2 kg Intake: IV 1999 100 / 100 1000 / 1000 Protonix Inj 80 MG In NS Inj 100 / 100 100 ML @ 10 mls/hr IV.CONT CONT [place] Rx#:[id number] NS Inj 1,000 ML @ 84 mls/hr IV. 1000 / 1000 1000 / 1000 CONT .[id number] [place] Rx#:[id number] NS Inj 1,000 ML @ Wide Open IV. 1000 / 1000 SIG BOLUS ONE Rx#:[id number] Intake (Blood Product) Amt 400 / 400 0 / 0 Rbc As-3 Leukoreduced Unit 400 / 400 [id number] Rbc As-3 Leukoreduced Unit 0 / 0 0 / 0 [id number] Output: Urine Amount (Catheter) 750 / 750 Indwelling Temp Sensing 750 / 750 Catheter Other: Date of Last Bowel Movement 11/14/17 11/14/17 # Incontinent Bowel Movements 1 Narrative: GENERAL: 77 yo male, in nad. SKIN: Pale. Warm and dry. CARDIOVASCULAR: Regular rate and rhythm without murmurs, gallops, or rubs. RESPIRATORY: Breath sounds equal bilaterally. No accessory muscle use. GASTROINTESTINAL: Abdomen soft, non-tender, nondistended. MUSCULOSKELETAL: No cyanosis, or edema. BACK: Nontender without obvious deformity. No CVA tenderness. - Urinary Catheter Management Straight Cath placed during this visit: yes Reason for continuing: Hourly intake/output Insertion date: 11/14/17 Indwelling Temp Sensing Catheter Cath placed during this visit: yes Reason for continuing: Hourly intake/output Insertion date: 11/14/17 Insertion time: 13:46 Results - Labs CBC & Chem 7: 11/14/17 21:17 11/14/17 13:10 Laboratory Results - last 24 hr 11/14/17 11/14/17 11/14/17 13:10 13:10 13:10 WBC 16.9 H RBC 2.49 L Hgb 8.6 L Hct 25.8 L MCV 103.6 H MCH 34.5 H MCHC 33.3 RDW 14.5 Plt Count 197 MPV 9.1 Prelim Diff (Auto) Slide review pending Neut % (Auto) 87.5 H Lymph % (Auto) 6.9 L [place] % (Auto) 5.5 Eos % (Auto) 0.0 Baso % (Auto) 0.1 Neut # (Auto) 14.8 H Lymph # (Auto) 1.2 [place] # (Auto) 0.9 Eos # (Auto) 0.0 Baso # (Auto) 0.0 WBC Differential Manual diff final Seg Neuts % (Manual) 88 H Band Neuts % (Manual) 7 H Lymphocytes % (Manual) 2 L Metamyelocytes % (Man) 2 H Promyelocytes % (Man) 1 H Abs Neuts (Manual) 16.6 H Differential Comment . Platelet Estimate Normal Platelet Morphology Normal PT 12.0 H INR 1.2 Sodium 140 Potassium 3.4 L Chloride 100 Carbon Dioxide 20.3 L Anion Gap 20 H BUN 55 H Creatinine 2.15 H Estimated GFR 22 L Random Glucose 197 H Calcium 7.8 L Total Bilirubin 0.6 AST 42 H ALT 38 Alkaline Phosphatase 63 Ammonia Total Creatine Kinase 400 H CK-MB (CK-2) 18.1 H CK-MB (CK-2) % 4.5 H* Troponin I 0.05 Total Protein 5.6 L Albumin 2.7 L Urine Color Urine Clarity Urine pH Ur Specific [place] Urine Protein Urine Glucose (UA) Urine Ketones Urine Occult Blood Urine Nitrate Urine Bilirubin Urine Urobilinogen Ur Leukocyte Esterase Urine RBC Urine WBC Ur Squamous Epith Cells Hyaline Casts Urine Mucus Micro UA Comment Ur Microscopic Review Urine Culture Comments Urine Opiates Screen Ur Barbiturates Screen Ur Amphetamines Screen U Benzodiazepines Scrn Urine Cocaine Screen U Cannabinoids Screen Serum Alcohol Less than 3 Blood Type Blood Type Recheck Antibody Screen MTS Gel Crossmatch 11/14/17 11/14/17 11/14/17 13:10 13:14 13:25 WBC RBC Hgb Hct MCV MCH MCHC RDW Plt Count MPV Prelim Diff (Auto) Neut % (Auto) Lymph % (Auto) [place] % (Auto) Eos % (Auto) Baso % (Auto) Neut # (Auto) Lymph # (Auto) [place] # (Auto) Eos # (Auto) Baso # (Auto) WBC Differential Seg Neuts % (Manual) Band Neuts % (Manual) Lymphocytes % (Manual) Metamyelocytes % (Man) Promyelocytes % (Man) Abs Neuts (Manual) Differential Comment Platelet Estimate Platelet Morphology PT INR Sodium Potassium Chloride Carbon Dioxide Anion Gap BUN Creatinine Estimated GFR Random Glucose Calcium Total Bilirubin AST ALT Alkaline Phosphatase Ammonia 62 H Total Creatine Kinase CK-MB (CK-2) CK-MB (CK-2) % Troponin I Total Protein Albumin Urine Color Urine Clarity Urine pH Ur Specific [place] Urine Protein Urine Glucose (UA) Urine Ketones Urine Occult Blood Urine Nitrate Urine Bilirubin Urine Urobilinogen Ur Leukocyte Esterase Urine RBC Urine WBC Ur Squamous Epith Cells Hyaline Casts Urine Mucus Micro UA Comment Ur Microscopic Review Urine Culture Comments Urine Opiates Screen Neg Ur Barbiturates Screen Neg Ur Amphetamines Screen Neg U Benzodiazepines Scrn Pos H Urine Cocaine Screen Neg U Cannabinoids Screen Neg Serum Alcohol Blood Type O Negative Blood Type Recheck Required Antibody Screen Negative MTS Gel Crossmatch 11/14/17 11/14/17 11/14/17 13:25 21:17 21:17 WBC RBC Hgb 6.6 L* D Hct 20.0 L* MCV MCH MCHC RDW Plt Count MPV Prelim Diff (Auto) Neut % (Auto) Lymph % (Auto) [place] % (Auto) Eos % (Auto) Baso % (Auto) Neut # (Auto) Lymph # (Auto) [place] # (Auto) Eos # (Auto) Baso # (Auto) WBC Differential Seg Neuts % (Manual) Band Neuts % (Manual) Lymphocytes % (Manual) Metamyelocytes % (Man) Promyelocytes % (Man) Abs Neuts (Manual) Differential Comment Platelet Estimate Platelet Morphology PT INR Sodium Potassium Chloride Carbon Dioxide Anion Gap BUN Creatinine Estimated GFR Random Glucose Calcium Total Bilirubin AST ALT Alkaline Phosphatase Ammonia Total Creatine Kinase CK-MB (CK-2) CK-MB (CK-2) % Troponin I 0.08 H Total Protein Albumin Urine Color Kim Urine Clarity Cloudy H Urine pH 5.0 Ur Specific [place] 1.023 Urine Protein 30 H Urine Glucose (UA) 50 Urine Ketones Trace H Urine Occult Blood Small H Urine Nitrate Negative Urine Bilirubin Negative Urine Urobilinogen Less than 2 Ur Leukocyte Esterase Trace H Urine RBC 1 Urine WBC 4 Ur Squamous Epith Cells 2 Hyaline Casts 62 Urine Mucus Moderate H Micro UA Comment Cath-culture not ind Ur Microscopic Review Not Reportable Urine Culture Comments Cath-cult not ind Urine Opiates Screen Ur Barbiturates Screen Ur Amphetamines Screen U Benzodiazepines Scrn Urine Cocaine Screen U Cannabinoids Screen Serum Alcohol Blood Type Blood Type Recheck Antibody Screen MTS Gel Crossmatch 11/14/17 23:35 WBC RBC Hgb Hct MCV MCH MCHC RDW Plt Count MPV Prelim Diff (Auto) Neut % (Auto) Lymph % (Auto) [place] % (Auto) Eos % (Auto) Baso % (Auto) Neut # (Auto) Lymph # (Auto) [place] # (Auto) Eos # (Auto) Baso # (Auto) WBC Differential Seg Neuts % (Manual) Band Neuts % (Manual) Lymphocytes % (Manual) Metamyelocytes % (Man) Promyelocytes % (Man) Abs Neuts (Manual) Differential Comment Platelet Estimate Platelet Morphology PT INR Sodium Potassium Chloride Carbon Dioxide Anion Gap BUN Creatinine Estimated GFR Random Glucose Calcium Total Bilirubin AST ALT Alkaline Phosphatase Ammonia Total Creatine Kinase CK-MB (CK-2) CK-MB (CK-2) % Troponin I Total Protein Albumin Urine Color Urine Clarity Urine pH Ur Specific [place] Urine Protein Urine Glucose (UA) Urine Ketones Urine Occult Blood Urine Nitrate Urine Bilirubin Urine Urobilinogen Ur Leukocyte Esterase Urine RBC Urine WBC Ur Squamous Epith Cells Hyaline Casts Urine Mucus Micro UA Comment Ur Microscopic Review Urine Culture Comments Urine Opiates Screen Ur Barbiturates Screen Ur Amphetamines Screen U Benzodiazepines Scrn Urine Cocaine Screen U Cannabinoids Screen Serum Alcohol Blood Type Blood Type Recheck Antibody Screen MTS Gel Crossmatch See Detail Microbiology 11/14/17 13:05 Blood - Line Aerobic Blood Culture - Preliminary No growth in 1 day 11/14/17 13:05 Blood - Line Anaerobic Blood Culture - Preliminary No growth in 1 day 11/14/17 13:10 Blood - Line Aerobic Blood Culture - Preliminary No growth in 1 day 11/14/17 13:10 Blood - Line Anaerobic Blood Culture - Preliminary No growth in 1 day - Imaging Impressions Chest X-Ray 11/14/17 12:53 CONCLUSION: 1. Negative portable chest. Head CT 11/14/17 12:55 CONCLUSION: 1. Atrophy. . Assessment and Plan - Plan Rectal bleed NPO, continue IV fluid- continue to monitor H/H closely- continue PPI, satrted octreotide. Consult GI. Seen by GI s/p EGD reort is pending Anemia secondary to acute rectal bleed. Hemoglobin dropped to 6.6. Type and screen. 2 units of blood ordered and transfused. Renal insufficiency with unknown duration- continue IV fluid and monitor the renal function and electrolytes. Avoid nephrotoxins Alcohol abuse: on CIWA- start on Thiamine. Leukocytosis-likely reactive?- monitor; monitor CBC Mild rhabdomyolysis- continue IV fluid- recheck CPK in am. DVT prophylaxis with SCD's- no chemical prophylaxis due to GI bleed. Discussed Condition With: patient, nurse Remove siegel
[2017-11-15] MEDS ORDERED: Lidocaine PF 1% Inj 5 ML Syringe INFILTRATN ONE (14:10)
--- NOTE | 2017-11-15 14:16 | GIPROC ---
[facility] [address] [facility]. [facility], [address] EGD PROCEDURE REPORT EXAM DATE: 11/15/2017 PATIENT NAME: Erendira Leggett MR #: [id number] BIRTHDATE: 1940 ATTENDING: Robbi Zamora MD ORDER #: [id number] YARD HAND: Annalee Self and Tita Torres STATUS: inpatient INDICATIONS: The patient is a 77 yr old female here for an EGD due to acute post hemorrhagic anemia, melena, and vomiting PROCEDURE PERFORMED: EGD w/ biopsy MEDICATIONS: None and Per Anesthesia. TOPICAL ANESTHETIC: CONSENT: The patient understands the risks and benefits of the procedure and understands that these risks include, but are not limited to: sedation, allergic reaction, infection, perforation and/or bleeding. Alternative means of evaluation and treatment include, among others: physical exam, x-rays, and/or surgical intervention. The patient elects to proceed with this endoscopic procedure. medical equipment was checked for proper function. Hand hygiene and appropriate measures for infection prevention was taken. After the risks, benefits and alternatives of the procedure were thoroughly explained, Informed consent was verified, confirmed and timeout was successfully executed by the treatment team. The patient was anesthetized with topical anesthesia and the Pentax EG-[id number] endoscope was introduced through the mouth and advanced to the second portion of the duodenum. Retroflexed views revealed a hiatal hernia The gastroscope was then slowly withdrawn and removed. ESOPHAGUS: There was LA Class D esophagitis noted. Entire esophagus. STOMACH: A large non-bleeding and deep ulcer with surrounding edema and a pigmented spot was found in the gastric antrum. Biopsies were taken around the ulcer. DUODENUM: A large non-bleeding and deep ulcer with surrounding edema, heaped up edges and a red spot was found in the duodenal bulb. ADVERSE EVENTS: There were no complications. IMPRESSIONS: 1. There was LA Class D esophagitis noted 2. Large ulcer was found in the gastric antrum; biopsies were taken 3. Large ulcer was found in the duodenal bulb 4. Retroflexed views revealed a hiatal hernia RECOMMENDATIONS: 1. Await biopsy results. Biopsy results will not be ready for 7-10 days. If you don't hear from us in two weeks, call our office for biopsy results. 2. Anti-reflux regimen 3. Continue PPI 4. Avoid NSAIDS PATIENT CONDITION: stable DISPOSITION: Inpatient REPEAT EXAM: Return 1 month EGD pending biopsy results Robbi Zamora MD eSigned: Robbi Zamora MD 11/15/2017 2:16 PM cc: PATIENT NAME: Erendira Leggett MR#: [id number]
[2017-11-15 18:16] LABS: Hematocrit 28.1 % (35.0-46.0); Hemoglobin 9.9 gm/dL (11.6-15.3); Mean Corpuscular HGB Conc 35.3 % (32.0-36.0); Mean Corpuscular Hemoglobin 33.9 pg (27.0-34.0); Mean Corpuscular Volume 96.1 fL (80.0-100.0); Mean Platelet Volume 8.7 fL (7.0-11.0); Platelet Count 192 th/mm3 (150-450); Red Blood Count 2.92 mil/mm3 (4.00-5.30)
[2017-11-15 18:25] LABS: Prothrombin Time 10.6 sec (9.8-11.6)
[2017-11-15 19:08] LABS: CKMB Percent 3.2 % (0.0-4.0); Creatine Kinase MB 11.3 ng/mL (0.5-3.6)
--- NOTE | 2017-11-15 21:47 | ECG ---
Date Performed: 11/14/2017 Time Performed: 13:14:20 PTAGE: 77 years EKG: Sinus rhythm LEFT BUNDLE BRANCH BLOCK ABNORMAL ECG NO PREVIOUS TRACING DOCTOR: Frankie Bang Interpretating Date/Time 11/15/2017 21:46:16
[2017-11-15] MEDS: Octreotide Inj 500 MCG in Sodium Chlor 0.9% Inj 500 ML IV.CONT SCH ×2 (23:37→23:40)
[2017-11-16] MEDS: Sod Chloride 0.9% Inj 1,000 ML IV.CONT SCH (03:30)
[2017-11-16 04:26] LABS: Baso % (Auto) 0.2 % (0.0-2.0); Eos # (Auto) 0.1 th/mm3 (0.0-0.4); Eos % (Auto) 1.8 % (0.0-4.0); Hemoglobin 8.8 gm/dL (11.6-15.3); Lymph # (Auto) 1.5 th/mm3 (1.0-4.8); Lymph % (Auto) 24.2 % (9.0-44.0); Mean Corpuscular HGB Conc 35.3 % (32.0-36.0); Mean Corpuscular Hemoglobin 34.2 pg (27.0-34.0); Mean Corpuscular Volume 96.8 fL (80.0-100.0); Mean Platelet Volume 8.2 fL (7.0-11.0); Mono # (Auto) 0.6 th/mm3 (0.0-0.9); Mono % (Auto) 9.8 % (0.0-8.0); Neut # (Auto) 3.9 th/mm3 (1.8-7.7); Platelet Count 186 th/mm3 (150-450); Red Blood Count 2.58 mil/mm3 (4.00-5.30)
[2017-11-16 04:56] LABS: Calcium 7.2 mg/dL (8.5-10.1); Potassium 3.2 meq/L (3.5-5.1)
[2017-11-16 07:54] LABS: Eosinophils 2 % (0-4); Lymphocytes 23 % (9-44); Metamyelocytes 1 % (0-1); Monocytes 8 % (0-8); Myelocytes 1 % (0-0); Platelet Estimate Normal (Normal); Platelet Morphology Normal (Normal); Promyelocyte 1 % (0-0)
[2017-11-16] MEDS: Thiamine Inj 100 MG in Sodium Chlor 0.9% Inj 100 ML IV.SIG SCH (08:45)
[2017-11-16] MEDS ORDERED: Potassium Chloride 25 MEQ Effervescent Tablet PO ONE (09:24)
--- NOTE | 2017-11-16 12:48 | P.PNGI ---
Subjective Interval history: Pt sitting in bedside chair. Brother at bedside. She has not had BM since EGD yesterday. Denies nausea, vomiting, abdominal pain. Pt anxious to go home. <DevenAllie alvarado - Last Filed: 11/16/17 12:49> Physical Exam Vital signs: Vital Signs 11/15/17 14:29 11/15/17 16:00 11/15/17 20:00 Temperature 98.8 F 98.7 F 97.2 F L Pulse Rate 67 74 84 Respiratory Rate 18 19 18 Blood Pressure 123/59 L 146/64 H 148/64 H Pulse Oximetry 98 98 95 11/16/17 00:00 Temperature 97.9 F Pulse Rate 73 Respiratory Rate 18 Blood Pressure 123/64 Pulse Oximetry 96 Intake & Output 11/15/17 11/16/17 11/16/17 18:59 06:59 18:59 Intake Total 2650 / 2650 500 / 500 102 / 102 Output Total 2200 / 2200 Balance 450 / 450 500 / 500 102 / 102 Weight 65.4 kg Intake: IV 1230 / 1230 500 / 500 102 / 102 SandoSTATIN Inj 500 MCG In NS 0 / 0 500 / 500 Inj 500 ML @ 25 MCG/HR 25.02 mls/hr IV.CONT .Q20H1M [place] Rx#: [id number] Protonix Inj 80 MG In NS Inj 100 / 100 100 ML @ 10 mls/hr IV.CONT CONT [place] Rx#:[id number] NS Inj 1,000 ML @ 84 mls/hr IV. 1000 / 1000 CONT .[id number] [place] Rx#:[id number] NS Inj 250 ML @ 15 mls/hr IV. 30 / 30 SIG ONCE [place] Rx#:[id number] Thiamine Inj 100 MG In NS Inj 100 / 100 102 / 102 100 ML @ 100 mls/hr IV.SIG DAILY [place] Rx#:[id number] Oral 720 / 720 Anesthesia Amount 700 / 700 Intake (Blood Product) Amt 0 / 0 Rbc As-3 Leukoreduced Unit 0 / 0 [id number] Output: Urine 2200 / 2200 Other: # Voids 3 Date of Last Bowel Movement 11/14/17 11/14/17 # Bowel Movements 1 - Constitutional no acute distress - Routine HEENT Exam Head: Present: normocephalic, atraumatic - Routine Respiratory Exam Absent: accessory muscle use - Routine Abdominal Exam Present: soft, normoactive bowel sounds. Absent: tenderness, distended - Routine Skin Exam Present: dry, warm - Routine Neurological Exam Present: alert, oriented X3 - Urinary Catheter Management Straight Cath placed during this visit: yes Reason for continuing: Acute urinary retention Insertion date: 11/14/17 Indwelling Temp Sensing Catheter Cath placed during this visit: yes Reason for continuing: Acute urinary retention Insertion date: 11/14/17 Insertion time: 13:46 <Allie Pozo - Last Filed: 11/16/17 12:49> Vital signs: Vital Signs 11/15/17 16:00 11/15/17 20:00 11/16/17 00:00 Temperature 98.7 F 97.2 F L 97.9 F Pulse Rate 74 84 73 Respiratory Rate 19 18 18 Blood Pressure 146/64 H 148/64 H 123/64 Pulse Oximetry 98 95 96 11/16/17 08:00 11/16/17 09:00 11/16/17 12:00 Temperature 97.6 F 97.3 F L Pulse Rate 82 75 75 Respiratory Rate 16 18 Blood Pressure 188/115 H 175/80 H Pulse Oximetry 98 99 Intake & Output 11/15/17 11/16/17 11/16/17 18:59 06:59 18:59 Intake Total 2650 / 2650 500 / 500 102 / 102 Output Total 2200 / 2200 Balance 450 / 450 500 / 500 102 / 102 Weight 65.4 kg Intake: IV 1230 / 1230 500 / 500 102 / 102 SandoSTATIN Inj 500 MCG In NS 0 / 0 500 / 500 Inj 500 ML @ 25 MCG/HR 25.02 mls/hr IV.CONT .Q20H1M [place] Rx#: [id number] Protonix Inj 80 MG In NS Inj 100 / 100 100 ML @ 10 mls/hr IV.CONT CONT [place] Rx#:[id number] NS Inj 1,000 ML @ 84 mls/hr IV. 1000 / 1000 CONT .[id number] [place] Rx#:[id number] NS Inj 250 ML @ 15 mls/hr IV. 30 / 30 SIG ONCE [place] Rx#:[id number] Thiamine Inj 100 MG In NS Inj 100 / 100 102 / 102 100 ML @ 100 mls/hr IV.SIG DAILY [place] Rx#:[id number] Oral 720 / 720 Anesthesia Amount 700 / 700 Intake (Blood Product) Amt 0 / 0 Rbc As-3 Leukoreduced Unit 0 / 0 [id number] Output: Urine 2200 / 2200 Other: # Voids 3 Date of Last Bowel Movement 11/14/17 11/14/17 11/14/17 # Bowel Movements 1 - Urinary Catheter Management Straight Cath placed during this visit: no Indwelling Temp Sensing Catheter Cath placed during this visit: no <Robbi Zamora - Last Filed: 11/16/17 15:49> Results - Labs CBC & Chem 7: 11/16/17 04:07 11/16/17 04:07 Laboratory Results - last 24 hr 11/15/17 11/15/17 11/15/17 17:36 17:36 17:36 WBC 8.0 RBC 2.92 L Hgb 9.9 L D Hct 28.1 L MCV 96.1 D MCH 33.9 MCHC 35.3 RDW 17.0 D Plt Count 192 MPV 8.7 Prelim Diff (Auto) Neut % (Auto) Lymph % (Auto) [place] % (Auto) Eos % (Auto) Baso % (Auto) Neut # (Auto) Lymph # (Auto) [place] # (Auto) Eos # (Auto) Baso # (Auto) WBC Differential Seg Neuts % (Manual) Band Neuts % (Manual) Lymphocytes % (Manual) Monocytes % (Manual) Eosinophils % (Manual) Metamyelocytes % (Man) Myelocytes % (Man) Promyelocytes % (Man) Abs Neuts (Manual) Differential Comment Platelet Estimate Platelet Morphology PT 10.6 INR 1.0 Sodium Potassium Chloride Carbon Dioxide Anion Gap BUN Creatinine Estimated GFR Random Glucose Calcium Prot Corrected Calcium Total Creatine Kinase 349 H CK-MB (CK-2) 11.3 H CK-MB (CK-2) % 3.2 Total Protein 11/16/17 11/16/17 04:07 04:07 WBC 6.0 RBC 2.58 L Hgb 8.8 L Hct 25.0 L MCV 96.8 MCH 34.2 H MCHC 35.3 RDW 16.0 Plt Count 186 MPV 8.2 Prelim Diff (Auto) Slide review pending Neut % (Auto) 64.0 Lymph % (Auto) 24.2 [place] % (Auto) 9.8 H Eos % (Auto) 1.8 Baso % (Auto) 0.2 Neut # (Auto) 3.9 Lymph # (Auto) 1.5 [place] # (Auto) 0.6 Eos # (Auto) 0.1 Baso # (Auto) 0.0 WBC Differential Manual diff final Seg Neuts % (Manual) 63 Band Neuts % (Manual) 1 Lymphocytes % (Manual) 23 Monocytes % (Manual) 8 Eosinophils % (Manual) 2 Metamyelocytes % (Man) 1 Myelocytes % (Man) 1 H Promyelocytes % (Man) 1 H Abs Neuts (Manual) 4.0 Differential Comment . Platelet Estimate Normal Platelet Morphology Normal PT INR Sodium 144 Potassium 3.2 L Chloride 109 H D Carbon Dioxide 25.0 Anion Gap 10 BUN 33 H Creatinine 1.04 H Estimated GFR 51 L Random Glucose 121 H Calcium 7.2 L* Prot Corrected Calcium 8.3 L Total Creatine Kinase CK-MB (CK-2) CK-MB (CK-2) % Total Protein 5.0 L D Microbiology 11/14/17 13:05 Blood - Line Aerobic Blood Culture - Preliminary No growth in 2 days 11/14/17 13:05 Blood - Line Anaerobic Blood Culture - Preliminary No growth in 2 days 11/14/17 13:10 Blood - Line Aerobic Blood Culture - Preliminary No growth in 2 days 11/14/17 13:10 Blood - Line Anaerobic Blood Culture - Preliminary No growth in 2 days <Allie Pozo - Last Filed: 11/16/17 12:49> - Labs CBC & Chem 7: 11/16/17 04:07 11/16/17 04:07 Laboratory Results - last 24 hr 11/15/17 11/15/17 11/15/17 17:36 17:36 17:36 WBC 8.0 RBC 2.92 L Hgb 9.9 L D Hct 28.1 L MCV 96.1 D MCH 33.9 MCHC 35.3 RDW 17.0 D Plt Count 192 MPV 8.7 Prelim Diff (Auto) Neut % (Auto) Lymph % (Auto) [place] % (Auto) Eos % (Auto) Baso % (Auto) Neut # (Auto) Lymph # (Auto) [place] # (Auto) Eos # (Auto) Baso # (Auto) WBC Differential Seg Neuts % (Manual) Band Neuts % (Manual) Lymphocytes % (Manual) Monocytes % (Manual) Eosinophils % (Manual) Metamyelocytes % (Man) Myelocytes % (Man) Promyelocytes % (Man) Abs Neuts (Manual) Differential Comment Platelet Estimate Platelet Morphology PT 10.6 INR 1.0 Sodium Potassium Chloride Carbon Dioxide Anion Gap BUN Creatinine Estimated GFR Random Glucose Calcium Prot Corrected Calcium Total Creatine Kinase 349 H CK-MB (CK-2) 11.3 H CK-MB (CK-2) % 3.2 Total Protein 11/16/17 11/16/17 04:07 04:07 WBC 6.0 RBC 2.58 L Hgb 8.8 L Hct 25.0 L MCV 96.8 MCH 34.2 H MCHC 35.3 RDW 16.0 Plt Count 186 MPV 8.2 Prelim Diff (Auto) Slide review pending Neut % (Auto) 64.0 Lymph % (Auto) 24.2 [place] % (Auto) 9.8 H Eos % (Auto) 1.8 Baso % (Auto) 0.2 Neut # (Auto) 3.9 Lymph # (Auto) 1.5 [place] # (Auto) 0.6 Eos # (Auto) 0.1 Baso # (Auto) 0.0 WBC Differential Manual diff final Seg Neuts % (Manual) 63 Band Neuts % (Manual) 1 Lymphocytes % (Manual) 23 Monocytes % (Manual) 8 Eosinophils % (Manual) 2 Metamyelocytes % (Man) 1 Myelocytes % (Man) 1 H Promyelocytes % (Man) 1 H Abs Neuts (Manual) 4.0 Differential Comment . Platelet Estimate Normal Platelet Morphology Normal PT INR Sodium 144 Potassium 3.2 L Chloride 109 H D Carbon Dioxide 25.0 Anion Gap 10 BUN 33 H Creatinine 1.04 H Estimated GFR 51 L Random Glucose 121 H Calcium 7.2 L* Prot Corrected Calcium 8.3 L Total Creatine Kinase CK-MB (CK-2) CK-MB (CK-2) % Total Protein 5.0 L D Microbiology 11/14/17 13:05 Blood - Line Aerobic Blood Culture - Preliminary No growth in 2 days 11/14/17 13:05 Blood - Line Anaerobic Blood Culture - Preliminary No growth in 2 days 11/14/17 13:10 Blood - Line Aerobic Blood Culture - Preliminary No growth in 2 days 11/14/17 13:10 Blood - Line Anaerobic Blood Culture - Preliminary No growth in 2 days <Noah,Culp - Last Filed: 11/16/17 15:49> Assessment and Plan (1) Hyperammonemia Status: Acute Code(s): E72.20 - Disorder of urea cycle metabolism, unspecified (2) GI bleed Status: Acute Code(s): K92.2 - Gastrointestinal hemorrhage, unspecified (3) Coffee ground emesis Status: Acute Code(s): K92.0 - Hematemesis (4) Rectal bleeding Status: Acute Code(s): K62.5 - Hemorrhage of anus and rectum - Plan Assessment: - Coffee ground emesis Pt found by brother who lives across the street covered in coffee ground emesis and lethargic. Pt reports she drinks ETOH to fall asleep, also reports she has been taking a lot of Ibuprofen lately for leg pain. Denies history of GIB EGD --> There was LA Class D esophagitis noted. Large ulcer was found in the gastric antrum; biopsies were taken. Large ulcer was found in the duodenal bulb. Retroflexed views revealed a hiatal hernia - Elevated LFTs likely secondary to ETOH - Hyperammonemia- ammonia-62, pt alert and oriented x 3- denies any confusion (11/16) S/P EGD yesterday, no BM since procedure, denies any nausea or emesis. Received 2 U of PRBCs yesterday, hgb was 6.6 now 8.8. No obvious continuation of bleeding. Plan: Advance diet Start on Lactulose DC Octreotide gtt DC Protonix gtt Switch to Protonix PO ETOH cessation Avoid NSAIDs EGD biopsy pending Repeat EGD in one month Our service will sign off, please reconsult as needed Have pt follow up with GI after DC Pt has been seen and examined by myself and Dr. Zamora and this note is written on his behalf <Allie Pozo - Last Filed: 11/16/17 12:49> (1) Hyperammonemia Status: Acute Code(s): E72.20 - Disorder of urea cycle metabolism, unspecified (2) GI bleed Status: Acute Code(s): K92.2 - Gastrointestinal hemorrhage, unspecified (3) Coffee ground emesis Status: Acute Code(s): K92.0 - Hematemesis (4) Rectal bleeding Status: Acute Code(s): K62.5 - Hemorrhage of anus and rectum - Plan Multiple ulcers. NO NSAIDs, No etoh. PPI daily. GI will sign off, fu upon dc. Thank you <Robbi Zamora - Last Filed: 11/16/17 15:49>
[2017-11-16 12:52] VITALS: BP 175/80; PULSE 75; RESP 18; TEMP 97.3; O2SAT 99
--- NOTE | 2017-11-16 14:51 | P.DS ---
Date of admission: 11/14/17 15:58 Primary care physician: UNKNOWN Brief History from admission: patient is a 77-year-old female presents the ED via EMS after being found down at home by her brother. patient is not a good historian but the brother told EMS that he saw the patient yesterday morning around 11am. On presentation the patient was shivering, cool to the touch, covered in coffee ground emesis and bloody stool. She is oriented to self and situation. she has mild generalized abdominal pain but denies nausea. DS: Medications - Discharge Medications Prescriptions: pantoprazole 40 mg PO BID #60 tab DS: Summary Hospital Course: Mrs. Leggett is a 77 year old female. She was admitted due to GI Bleed. Etiology was related to an ulcer based on EGD and the ulcer is likely related to a history of alcohol abuse. She is doing well post op and requests discharge. Hgb shows stability since transfusion. No signs of bleeding on EGD. Continue BID PPI for one month. Follow up with GI as an outpatient. Medically stable and clear for discharge to home today. Avoid alcohol. - Time Spent with Patient Total time spent providing and/or coordinating discharge services: Less than 30 minutes - Quality: VTE Deep Vein Thrombosis/Pulmonary Embolism Present on Admission: No Exam Vital signs: Vital Signs 11/15/17 16:00 11/15/17 20:00 11/16/17 00:00 Temperature 98.7 F 97.2 F L 97.9 F Pulse Rate 74 84 73 Respiratory Rate 19 18 18 Blood Pressure 146/64 H 148/64 H 123/64 Pulse Oximetry 98 95 96 11/16/17 08:00 11/16/17 12:00 Temperature 97.6 F 97.3 F L Pulse Rate 82 75 Respiratory Rate 16 18 Blood Pressure 188/115 H 175/80 H Pulse Oximetry 98 99 Intake & Output 11/15/17 11/16/17 11/16/17 18:59 06:59 18:59 Intake Total 2650 / 2650 500 / 500 102 / 102 Output Total 2200 / 2200 Balance 450 / 450 500 / 500 102 / 102 Weight 65.4 kg Intake: IV 1230 / 1230 500 / 500 102 / 102 SandoSTATIN Inj 500 MCG In NS 0 / 0 500 / 500 Inj 500 ML @ 25 MCG/HR 25.02 mls/hr IV.CONT .[id number] [place] Rx#: [id number] Protonix Inj 80 MG In NS Inj 100 / 100 100 ML @ 10 mls/hr IV.CONT CONT [place] Rx#:[id number] NS Inj 1,000 ML @ 84 mls/hr IV. 1000 / 1000 CONT .[id number] [place] Rx#:[id number] NS Inj 250 ML @ 15 mls/hr IV. 30 / 30 SIG ONCE [place] Rx#:[id number] Thiamine Inj 100 MG In NS Inj 100 / 100 102 / 102 100 ML @ 100 mls/hr IV.SIG DAILY [place] Rx#:[id number] Oral 720 / 720 Anesthesia Amount 700 / 700 Intake (Blood Product) Amt 0 / 0 Rbc As-3 Leukoreduced Unit 0 / 0 [id number] Output: Urine 2200 / 2200 Other: # Voids 3 Date of Last Bowel Movement 11/14/17 11/14/17 # Bowel Movements 1 Results Procedures completed during hospitalization: EGD Pending studies at discharge: Pending at discharge 11/15/17 16:55 Surgical [PTH] Routine Labs on day of discharge: Labs from last 24 hours 11/16/17 11/16/17 11/15/17 04:07 04:07 17:36 WBC 6.0 RBC 2.58 L Hgb 8.8 L Hct 25.0 L MCV 96.8 MCH 34.2 H MCHC 35.3 RDW 16.0 Plt Count 186 MPV 8.2 Prelim Diff (Auto) Slide review pending Neut % (Auto) 64.0 Lymph % (Auto) 24.2 [place] % (Auto) 9.8 H Eos % (Auto) 1.8 Baso % (Auto) 0.2 Neut # (Auto) 3.9 Lymph # (Auto) 1.5 [place] # (Auto) 0.6 Eos # (Auto) 0.1 Baso # (Auto) 0.0 WBC Differential Manual diff final Seg Neuts % (Manual) 63 Band Neuts % (Manual) 1 Lymphocytes % (Manual) 23 Monocytes % (Manual) 8 Eosinophils % (Manual) 2 Metamyelocytes % (Man) 1 Myelocytes % (Man) 1 H Promyelocytes % (Man) 1 H Abs Neuts (Manual) 4.0 Differential Comment . Platelet Estimate Normal Platelet Morphology Normal PT 10.6 INR 1.0 Sodium 144 Potassium 3.2 L Chloride 109 H D Carbon Dioxide 25.0 Anion Gap 10 BUN 33 H Creatinine 1.04 H Estimated GFR 51 L Random Glucose 121 H Calcium 7.2 L* Prot Corrected Calcium 8.3 L Total Creatine Kinase CK-MB (CK-2) CK-MB (CK-2) % Total Protein 5.0 L D 11/15/17 11/15/17 17:36 17:36 WBC 8.0 RBC 2.92 L Hgb 9.9 L D Hct 28.1 L MCV 96.1 D MCH 33.9 MCHC 35.3 RDW 17.0 D Plt Count 192 MPV 8.7 Prelim Diff (Auto) Neut % (Auto) Lymph % (Auto) [place] % (Auto) Eos % (Auto) Baso % (Auto) Neut # (Auto) Lymph # (Auto) [place] # (Auto) Eos # (Auto) Baso # (Auto) WBC Differential Seg Neuts % (Manual) Band Neuts % (Manual) Lymphocytes % (Manual) Monocytes % (Manual) Eosinophils % (Manual) Metamyelocytes % (Man) Myelocytes % (Man) Promyelocytes % (Man) Abs Neuts (Manual) Differential Comment Platelet Estimate Platelet Morphology PT INR Sodium Potassium Chloride Carbon Dioxide Anion Gap BUN Creatinine Estimated GFR Random Glucose Calcium Prot Corrected Calcium Total Creatine Kinase 349 H CK-MB (CK-2) 11.3 H CK-MB (CK-2) % 3.2 Total Protein Preliminary micro results at discharge 11/14/17 13:05 Aerobic Blood Culture - Preliminary Blood - Line No growth in 2 days Anaerobic Blood Culture - Preliminary No growth in 2 days 11/14/17 13:10 Aerobic Blood Culture - Preliminary Blood - Line No growth in 2 days Anaerobic Blood Culture - Preliminary No growth in 2 days - Impressions ITS Impressions Chest X-Ray 11/14/17 12:53 CONCLUSION: 1. Negative portable chest. Head CT 11/14/17 12:55 CONCLUSION: 1. Atrophy. . Discharge Plan - Discharge Disposition Patient Disposition: 01 Discharge Home - Discharge Condition Condition: Stable - Discharge Order Discharge Orders: Discharge Order (Routine); Ordered 11/16/17 Ordered By: Jian Burroughs - Discharge Details Anticipated Discharge Date: 11/16/17 - Physicians Team Primary Care Provider: UNKNOWN, Attending Provider: Jian Burroughs Other Providers: Robbi Zamora MD ; Diaz Perales
== END 2017-11-16 20:43 | disposition home or self-care (01) ==
LOC: NEPE 12:10 → NEDA 15:58 → N07 19:40
PROVIDERS: ADMIT Hospitalist; ATTEND Hospitalist
PROC: PANENDO (2017-11-15 13:45)

== ENCOUNTER 2018-01-05 10:11 | Inpatient (IN) ==
[2018-01-05] MEDS ORDERED: Sod Chloride 0.9% Inj 1,000 ML IV.SIG ONE (10:47)
--- NOTE | 2018-01-05 10:51 | ED ---
HPI General Chief Complaint: Syncope Stated Complaint: Syncope Time Seen by Provider: 01/05/18 10:28 Source: EMS Mode of arrival: EMS Limitations: altered mental status History of Present Illness HPI narrative: Patient is a 77-year-old female who presents to the emergency room after she had a syncopal episode at home. Overall, patient is a poor historian, as per EMS, patient was ambulating to the bathroom when she had a syncopal episode. Patient does report that her head does hurt her, reports that she is feeling a little short of breath. Patient denies any chest pain, denies any abdominal pain. Patient is alert and oriented times person and place , not time. Patient is unable to provide HPI. Related Data Home Medications Medication Instructions Recorded Confirmed memantine 5 mg PO BID 01/05/18 01/05/18 mirtazapine 7.5 mg PO DAILY 01/05/18 01/05/18 Previous Rx's Medication Instructions Recorded pantoprazole 40 mg PO BID #60 tab 11/16/17 Allergies Allergy/AdvReac Type Severity Reaction Status Date / Time No Known Allergies Allergy Verified 11/14/17 13:02 Review of Systems ROS: all other systems reviewed are negative [facility] Medical History Medical History GI bleed (Acute) Patient denies medical problems (Acute) Surgical History Surgical History No history of previous surgery (Acute) Social History Social History Substance History: No History of Abuse Second Hand Smoke Exposure: No Smoking Status: Never smoker How Often Do You Have a Drink Containing Alcohol: Never Recent Travel in [facility] within the Last 8 Weeks: No Recent Out of Country Travel within the Last 8 Weeks: No Immunization History Tetanus Immunization: Unsure Exam Narrative Exam Narrative: GENERAL: Moderate distress SKIN: Focused skin assessment warm/dry. Patient Pale appearing HEAD: Atraumatic. Normocephalic. EYES: Pupils equal and round. No scleral icterus. No injection or drainage. ENT: No nasal bleeding or discharge. Mucous membranes pink and moist. NECK: Trachea midline. No JVD. CARDIOVASCULAR: tachycardic. No murmur appreciated. RESPIRATORY: No accessory muscle use. Clear to auscultation. Breath sounds equal bilaterally. GASTROINTESTINAL: Abdomen soft, non-tender, nondistended. Hepatic and splenic margins not palpable. MUSCULOSKELETAL: No obvious deformities. No clubbing. No cyanosis. No edema. NEUROLOGICAL: Awake and alert. No obvious cranial nerve deficits. Motor grossly within normal limits. Normal speech. PSYCHIATRIC: Appropriate mood and affect; insight and judgment normal. Course Initial Documented Vital Signs Pulse Rate 118 H 01/05/18 10:34 Respiratory Rate 24 01/05/18 10:34 Blood Pressure 125/88 01/05/18 10:34 Last Documented Vital Signs Temperature 97.1 F L 01/05/18 11:40 Pulse Rate 94 H 01/05/18 11:40 Respiratory Rate 18 01/05/18 11:40 Blood Pressure 117/69 01/05/18 11:40 Pulse Oximetry 97 01/05/18 11:40 Medical Decision Making MDM Narrative Medical decision making narrative: During the course of the patients emergency department visit, the patients history, examination, and differential diagnosis were reviewed with the patient. The patient was placed on a cardiac catheterization technician with oximetry and frequent blood pressure monitoring. The patient had an IV access obtained and blood work sent for analysis. The patient was initially provided IVF Previous records were reviewed as patient was unable to provide any HPI. Patient was admitted in October for a GI bleed after she was found down at home by her brother. Etiology was related to an ulcer based on EGD by GI. Patient was thought to have a gastric ulcer due to history of alcohol abuse. She was started on a protonix twice daily for 1 month and was to follow-up with GI as an outpatient. patient is unable to tell me if she had followed up with a gi doc patient with trop 0.08 with ischemic ekg- plan to heparinze patient case reviewed with dr. wheatley who accepts pt to service, request that I talk to cardiology about her trop and abnormal ekg. Of note, patient is chest pain free , her trop was 0.08 on her previous admission. heparin drip will be started as her ekg does show st seg depression II, III avF Medical Screen Exam Complete: Yes Emergency Medical Condition: Yes Differential Diagnosis Differential Diagnosis: ACS, arrhythmia, PE, GI bleed, electrolyte abnormality, hyperammonia Medical Records Medical records reviewed: Yes I reviewed the patient's medical records. patient was recently admitted for gi bleed due to gastric ulcer as well as estuardo in october of 2017 Lab Data Result diagrams: 01/05/18 11:11 01/05/18 11:11 Lab Results 01/05/18 01/05/18 01/05/18 Range/Units 11:11 11:11 11:11 WBC 9.9 (4.0-11.0) th/mm3 RBC 3.06 L (4.00-5.30) mil/mm3 Hgb 10.2 L (11.6-15.3) gm/dL Hct 29.2 L (35.0-46.0) % MCV 95.3 (80.0-100.0) fL MCH 33.2 (27.0-34.0) pg MCHC 34.9 (32.0-36.0) % RDW 14.9 (11.6-17.2) % Plt Count 467 H (150-450) th/mm3 MPV 8.5 (7.0-11.0) fL Neut % (Auto) 82.1 H (16.0-70.0) % Lymph % (Auto) 12.6 (9.0-44.0) % [place] % (Auto) 5.1 (0.0-8.0) % Eos % (Auto) 0.1 (0.0-4.0) % Baso % (Auto) 0.1 (0.0-2.0) % Neut # (Auto) 8.1 H (1.8-7.7) th/mm3 Lymph # (Auto) 1.2 (1.0-4.8) th/mm3 [place] # (Auto) 0.5 (0.0-0.9) th/mm3 Eos # (Auto) 0.0 (0.0-0.4) th/mm3 Baso # (Auto) 0.0 (0.0-0.2) th/mm3 WBC Differential . Differential Comment Auto diff final PT 11.2 (9.8-11.6) sec INR 1.1 Ratio APTT 22.9 L (24.3-30.1) sec Sodium 140 (136-145) meq/L Potassium 3.1 L (3.5-5.1) meq/L Chloride 99 (98-107) meq/L Carbon Dioxide 25.3 (21.0-32.0) meq/L Anion Gap 16 H (5-15) meq/L BUN 41 H (7-18) mg/dL Creatinine 1.75 H (0.50-1.00) mg/dL Estimated GFR 28 L (>89) mL/min Random Glucose 165 H (74-106) mg/dL Calcium 8.7 (8.5-10.1) mg/dL Magnesium 2.2 (1.5-2.5) mg/dL Total Bilirubin 0.8 (0.2-1.0) mg/dL AST 24 (15-37) U/L ALT 18 (10-53) U/L Alkaline Phosphatase 60 (45-117) U/L Ammonia (11-32) mcmol/L Troponin I 0.08 H (0.02-0.05) ng/mL B-Natriuretic Peptide (0-100) pg/mL Total Protein 5.8 L (6.4-8.2) g/dL Albumin 2.5 L (3.4-5.0) g/dL Urine Color (Yellw/Straw) Urine Clarity (Clear) Urine pH (5.0-8.5) Ur Specific [place] (1.002-1.035) Urine Protein (Neg-Trace) mg/dL Urine Glucose (UA) (Negative) mg/dL Urine Ketones (Negative) mg/dL Urine Occult Blood (Negative) Urine Nitrate (Negative) Urine Bilirubin (Negative) Urine Urobilinogen (Less than 2) mg/dL Ur Leukocyte Esterase (Negative) Urine RBC (0-3) /hpf Urine WBC (0-5) /hpf Ur Squamous Epith Cells (0-5) /hpf Urine Mucus (Occasional) /lpf Micro UA Comment Ur Microscopic Review Urine Culture Comments Blood Type Antibody Screen 01/05/18 01/05/18 01/05/18 Range/Units 11:11 11:11 11:11 WBC (4.0-11.0) th/mm3 RBC (4.00-5.30) mil/mm3 Hgb (11.6-15.3) gm/dL Hct (35.0-46.0) % MCV (80.0-100.0) fL MCH (27.0-34.0) pg MCHC (32.0-36.0) % RDW (11.6-17.2) % Plt Count (150-450) th/mm3 MPV (7.0-11.0) fL Neut % (Auto) (16.0-70.0) % Lymph % (Auto) (9.0-44.0) % [place] % (Auto) (0.0-8.0) % Eos % (Auto) (0.0-4.0) % Baso % (Auto) (0.0-2.0) % Neut # (Auto) (1.8-7.7) th/mm3 Lymph # (Auto) (1.0-4.8) th/mm3 [place] # (Auto) (0.0-0.9) th/mm3 Eos # (Auto) (0.0-0.4) th/mm3 Baso # (Auto) (0.0-0.2) th/mm3 WBC Differential Differential Comment PT (9.8-11.6) sec INR Ratio APTT (24.3-30.1) sec Sodium (136-145) meq/L Potassium (3.5-5.1) meq/L Chloride (98-107) meq/L Carbon Dioxide (21.0-32.0) meq/L Anion Gap (5-15) meq/L BUN (7-18) mg/dL Creatinine (0.50-1.00) mg/dL Estimated GFR (>89) mL/min Random Glucose (74-106) mg/dL Calcium (8.5-10.1) mg/dL Magnesium (1.5-2.5) mg/dL Total Bilirubin (0.2-1.0) mg/dL AST (15-37) U/L ALT (10-53) U/L Alkaline Phosphatase (45-117) U/L Ammonia 34 H (11-32) mcmol/L Troponin I (0.02-0.05) ng/mL B-Natriuretic Peptide 61 (0-100) pg/mL Total Protein (6.4-8.2) g/dL Albumin (3.4-5.0) g/dL Urine Color (Yellw/Straw) Urine Clarity (Clear) Urine pH (5.0-8.5) Ur Specific [place] (1.002-1.035) Urine Protein (Neg-Trace) mg/dL Urine Glucose (UA) (Negative) mg/dL Urine Ketones (Negative) mg/dL Urine Occult Blood (Negative) Urine Nitrate (Negative) Urine Bilirubin (Negative) Urine Urobilinogen (Less than 2) mg/dL Ur Leukocyte Esterase (Negative) Urine RBC (0-3) /hpf Urine WBC (0-5) /hpf Ur Squamous Epith Cells (0-5) /hpf Urine Mucus (Occasional) /lpf Micro UA Comment Ur Microscopic Review Urine Culture Comments Blood Type O Negative Antibody Screen Negative 01/05/18 Range/Units 11:40 WBC (4.0-11.0) th/mm3 RBC (4.00-5.30) mil/mm3 Hgb (11.6-15.3) gm/dL Hct (35.0-46.0) % MCV (80.0-100.0) fL MCH (27.0-34.0) pg MCHC (32.0-36.0) % RDW (11.6-17.2) % Plt Count (150-450) th/mm3 MPV (7.0-11.0) fL Neut % (Auto) (16.0-70.0) % Lymph % (Auto) (9.0-44.0) % [place] % (Auto) (0.0-8.0) % Eos % (Auto) (0.0-4.0) % Baso % (Auto) (0.0-2.0) % Neut # (Auto) (1.8-7.7) th/mm3 Lymph # (Auto) (1.0-4.8) th/mm3 [place] # (Auto) (0.0-0.9) th/mm3 Eos # (Auto) (0.0-0.4) th/mm3 Baso # (Auto) (0.0-0.2) th/mm3 WBC Differential Differential Comment PT (9.8-11.6) sec INR Ratio APTT (24.3-30.1) sec Sodium (136-145) meq/L Potassium (3.5-5.1) meq/L Chloride (98-107) meq/L Carbon Dioxide (21.0-32.0) meq/L Anion Gap (5-15) meq/L BUN (7-18) mg/dL Creatinine (0.50-1.00) mg/dL Estimated GFR (>89) mL/min Random Glucose (74-106) mg/dL Calcium (8.5-10.1) mg/dL Magnesium (1.5-2.5) mg/dL Total Bilirubin (0.2-1.0) mg/dL AST (15-37) U/L ALT (10-53) U/L Alkaline Phosphatase (45-117) U/L Ammonia (11-32) mcmol/L Troponin I (0.02-0.05) ng/mL B-Natriuretic Peptide (0-100) pg/mL Total Protein (6.4-8.2) g/dL Albumin (3.4-5.0) g/dL Urine Color Yellow (Yellw/Straw) Urine Clarity Hazy H (Clear) Urine pH 5.0 (5.0-8.5) Ur Specific [place] 1.023 (1.002-1.035) Urine Protein Negative (Neg-Trace) mg/dL Urine Glucose (UA) Negative (Negative) mg/dL Urine Ketones Trace H (Negative) mg/dL Urine Occult Blood Negative (Negative) Urine Nitrate Negative (Negative) Urine Bilirubin Negative (Negative) Urine Urobilinogen 2.0 H (Less than 2) mg/dL Ur Leukocyte Esterase Negative (Negative) Urine RBC Less than 1 (0-3) /hpf Urine WBC 2 (0-5) /hpf Ur Squamous Epith Cells 3 (0-5) /hpf Urine Mucus Few H (Occasional) /lpf Micro UA Comment Cath-culture not ind Ur Microscopic Review Not Reportable Urine Culture Comments Cath-cult not ind Blood Type Antibody Screen Imaging Data Radiologist's impression: Chest X-Ray 01/05/18 10:47 CONCLUSION: Negative examination. Head CT 01/05/18 10:47 CONCLUSION: Negative CT Head non contrast. . ECG Data EKG Prior to Arrival: No Attestation: I personally reviewed and interpreted this ECG as follows: Prior ECG tracings: available for review Interpretation: EKG at 1043: Sinus tach at 111bpm, qt/qtc: 316/381, pvc's, hyperacute t waves, patient with ST seg depression II, III, AVF - these changes are new when compared to previous EKG's Discharge Plan Discharge Disposition Patient Disposition: 30 Still Patient Discharge Condition Condition: Stable Discharge Details Diagnosis: Non-ST elevation UT (NSTEMI), Syncope and collapse Physicians Team ED Provider: Addie Sanchez Primary Care Provider: UNKNOWN, Rxs /Orders / Referrals /Forms Prescriptions: No Action pantoprazole 40 mg Tablet,Delayed Release (Dr/Ec) 40 mg PO BID Qty: 60 RF: 0 memantine 5 mg Tablet 5 mg PO BID RF: 0 mirtazapine 7.5 mg Tablet 7.5 mg PO DAILY RF: 0 Status ED Status: Admitted Observation Patient
--- NOTE | 2018-01-05 11:34 | XR ---
EXAM DATE: 01/05/2018 10:47 AM EDT AGE/SEX: 77 years / Female INDICATIONS: Shortness of breath. CLINICAL DATA: This is the patient's initial encounter. Patient reports that signs and symptoms have been present for 1 day and indicates a pain score of 0/10. MEDICAL/SURGICAL HISTORY: . Unobtainable. . Unobtainable. COMPARISON: [facility] [place]ST 1V SINGLE AP, 11/14/2017. . FINDINGS: A single AP view of the chest demonstrates the lungs to be symmetrically aerated without evidence of mass, infiltrate or effusion. The cardiomediastinal contours are unremarkable. Osseous structures a re intact. CONCLUSION: Negative examination. Electronically signed by: Juan J Cohen MD 01/05/2018 11:33 AM EDT
[2018-01-05 11:44] LABS: Baso % (Auto) 0.1 % (0.0-2.0); Eos % (Auto) 0.1 % (0.0-4.0); Hematocrit 29.2 % (35.0-46.0); Hemoglobin 10.2 gm/dL (11.6-15.3); Lymph # (Auto) 1.2 th/mm3 (1.0-4.8); Lymph % (Auto) 12.6 % (9.0-44.0); Mean Corpuscular HGB Conc 34.9 % (32.0-36.0); Mean Corpuscular Hemoglobin 33.2 pg (27.0-34.0); Mean Corpuscular Volume 95.3 fL (80.0-100.0); Mean Platelet Volume 8.5 fL (7.0-11.0); Mono # (Auto) 0.5 th/mm3 (0.0-0.9); Mono % (Auto) 5.1 % (0.0-8.0); Neut # (Auto) 8.1 th/mm3 (1.8-7.7); Neut % (Auto) 82.1 % (16.0-70.0); Platelet Count 467 th/mm3 (150-450); Red Blood Count 3.06 mil/mm3 (4.00-5.30); Red Cell Distribution Width 14.9 % (11.6-17.2); White Blood Count 9.9 th/mm3 (4.0-11.0)
--- NOTE | 2018-01-05 11:58 | CT ---
EXAM DATE: 01/05/2018 10:52 AM EDT AGE/SEX: 77 years / Female INDICATIONS: Syncopal episode at home. CLINICAL DATA: This is the patient's initial encounter. Patient reports that signs and symptoms have been present for 1 day and indicates a pain score of 0/10. MEDICAL/SURGICAL HISTORY: Gastrointestinal bleed. None. RADIATION DOSE: 34.60 CTDI (mGy) COMPARISON: [facility] – [place], CT HEAD W/O CONTRAST, 11/14/2017. . TECHNIQUE: CT of the head without contrast. Using automated exposure control and adjustment of the mA and/or kV according to patient size, radiation dose was kept as low as reasonably achievable to ob tain optimal diagnostic quality images. DICOM format image data is available electronically for revi ew and comparison. FINDINGS: Cerebrum: The ventricles are normal for age. No evidence of midline shift, mass lesion, hemorrhage or acute infarction. No extraaxial fluid collections are seen. Posterior Fossa: The cerebellum and brainstem are intact. The 4th ventricle is midline. The cerebe llopontine angle is unremarkable. Extracranial: The visualized portion of the orbits is intact. Skull: The calvaria is intact. No evidence of skull fracture. CONCLUSION: Negative CT Head non contrast. . Electronically signed by: Juan J Cohen MD 01/05/2018 11:57 AM EDT
[2018-01-05 12:01] LABS: Activated Partial Thrombo Time 22.9 sec (24.3-30.1); INR 1.1 Ratio
[2018-01-05 12:04] LABS: Prothrombin Time 11.2 sec (9.8-11.6)
[2018-01-05 12:07] LABS: Alanine Aminotransferase 18 U/L (10-53); Albumin 2.5 g/dL (3.4-5.0); Anion Gap 16 meq/L (5-15); Aspartate Aminotransferase 24 U/L (15-37); Blood Urea Nitrogen 41 mg/dL (7-18); Calcium 8.7 mg/dL (8.5-10.1); Carbon Dioxide 25.3 meq/L (21.0-32.0); Chloride 99 meq/L (98-107); Glomerular Filtration Rate 28 mL/min (>89); Glucose,Random 165 mg/dL (74-106); Magnesium 2.2 mg/dL (1.5-2.5); Potassium 3.1 meq/L (3.5-5.1); Sodium 140 meq/L (136-145)
[2018-01-05 12:11] LABS: Alkaline Phosphatase 60 U/L (45-117); Total Protein 5.8 g/dL (6.4-8.2); Troponin I 0.08 ng/mL (0.02-0.05)
[2018-01-05 12:33] LABS: Bilirubin,Urine Negative (Negative); Clarity,Urine Hazy (Clear); Color,Urine Yellow (Yellw/Straw); Glucose,Urine (UA) Negative (Negative); Leukocyte Esterase,Urine Negative (Negative); Mucus,Urine Few /lpf (Occasional); Nitrite,Urine Negative (Negative); Specific Gravity,Urine 1.023 (1.002-1.035); Squamous Epithelial Cell,Urine 3 /hpf (0-5)
[2018-01-05] MEDS ORDERED: Heparin Drip 25,000 UNIT/250 ML BAG IV.CONT PRN (13:23)
[2018-01-05] MEDS ORDERED: Acetaminophen 325 MG Tablet PO PRN (13:26)
[2018-01-05 15:04] LABS: Troponin I 0.06 ng/mL (0.02-0.05)
--- NOTE | 2018-01-05 16:36 | MR ---
EXAM DATE: 01/05/2018 3:55 PM EDT AGE/SEX: 77 years / Female INDICATIONS: Confusion. Weakness. CLINICAL DATA: This is the patient's initial encounter. Patient reports that signs and symptoms have been present for 2 days and indicates a pain score of 0/10. MEDICAL/SURGICAL HISTORY: None. None. COMPARISON: No prior exams available for comparison. TECHNIQUE: Multiplanar, multisequence examination of the brain was performed without contrast. FINDINGS: There is diffuse atrophy. Cerebrum: The ventricles are mildly prominent. No evidence of midline shift, mass lesion, hemorrhag e or acute infarction. No extraaxial fluid collections are seen. The pituitary gland and suprasella r cistern are normal in configuration. White Matter: No significant signal abnormalities are seen in the white matter. Posterior Fossa: The cerebellum and brainstem are intact. The 4th ventricle is midline. The cerebel lopontine angle is unremarkable. The cerebellar tonsils are normal in position. Diffusion Imaging: No focal areas of restricted diffusion are seen. No evidence of acute infarction . Extracranial: The visualized portions of the orbits and paranasal sinuses are unremarkable. CONCLUSION: 1. There is diffuse atrophy. No evidence of acute stroke, hemorrhage, mass or mass effect. Electronically signed by: Arash Amaya MD 01/05/2018 4:34 PM EDT
--- NOTE | 2018-01-05 17:29 | ECHRPT ---
Indication: SYNCOPE CONCLUSIONS Normal left ventricular size. Wall thickness is normal. The left ventricular systolic function is moderately reduced with an estimated ejection fraction in the range of 35-40%. Mitral annular calcification is present. Aortic valve sclerosis is present. There is trace tricuspid valve regurgitation. The estimated pulmonary arterial pressure is 40 mmHg. There is a small pericardial effusion present. BP: / HR: Rhythm: MEASUREMENTS (Male / Female) Normal Values Technical Quality: 2D ECHO RV Internal Dim ED PLAX 1.9 cm DOPPLER LVOT Peak Velocity 151.0 cm/s LVOT Peak Gradient 9.1 mmHg Mitral E Point Velocity 44.9 cm/s Mitral A Point Velocity 93.8 cm/s Mitral E to A Ratio 0.5 TR Peak Velocity 293.0 cm/s TR Peak Gradient 34.3 mmHg FINDINGS LEFT VENTRICLE Normal left ventricular size. Wall thickness is normal. The left ventricular systolic function is moderately reduced with an estimated ejection fraction in the range of 35-40%. RIGHT VENTRICLE Normal right ventricular size and systolic function. LEFT ATRIUM The left atrial size is normal. RIGHT ATRIUM The right atrial size is normal. ATRIAL SEPTUM Normal atrial septal thickness without atrial level shunting by limited color doppler interrogation. AORTA The aortic root and proximal ascending aorta are normal in size on limited imaging. MITRAL VALVE Mitral annular calcification is present. AORTIC VALVE Aortic valve sclerosis is present. TRICUSPID VALVE There is trace tricuspid valve regurgitation. The estimated pulmonary arterial pressure is 40 mmHg. PULMONARY VALVE The pulmonary valve is not well visualized. VESSELS The inferior vena cava is normal in size. PERICARDIUM There is a small pericardial effusion present. Kina Dubois MD, FACC (Electronically Signed) Final Date:05 January 2018 17:28
--- NOTE | 2018-01-05 17:44 | P.HP ---
History of Present Illness Primary Care Physician: UNKNOWN History of Present Illness: 77-year-old female with history of multiple gastric ulcers and upper GI bleed approximately 2 months ago presents to the ER with increased weakness that resulted in a syncopal episode earlier today. On presentation to the ER she demonstrated some mild ST depressions on EKG and mild elevation of her troponin level both which are concerning for cardiac causes of her syncope. Patient herself is a somewhat poor historian but I spoke to her brother who explained that she has had a decreasing appetite over the last 2 months. She was treated for multiple gastric ulcers but has been refusing some of her favorite foods at home. His feeling is that she has become weakened from lack of adequate nutrition and that this resulted in her syncopal episode. Patient denies that she has had any chest pain, she denies any diaphoresis. She does describe that she has had difficulty swallowing food, stating that it causes nausea but not committing to the idea that it causes a "stuck" sensation. She has some baseline dementia so it is unclear if she has been taking her pantoprazole as prescribed. Her living condition is that she lives at home alone. She denies any fevers, denies dysuria, denies any acute pain. Inpatient Certification: I certify that the inpatient services were ordered in accordance with Medicare regulations governing the order. This includes certification that hospital inpatient services are reasonable and necessary and in the case of services not specified as inpatient-only under 42 CFR 419.22(n), that they are appropriately provided as inpatient services in accordance to with the 2-midnight benchmark under 43 CFR 412.3(e) Estimated Total Length of Stay (Days): 3 Plans for Post Hospital Care: Home health Review of Systems All other systems reviewed negative except as stated in HPI [facility] - History History Provided By: Patient - Medical History Medical History: Medical History (Last Updated 01/05/18 @ 10:53 by Addie Sanchez) GI bleed Patient denies medical problems - Surgical History Surgical History: Surgical History (Last Reviewed 01/05/18 @ 10:52 by Addie Sanchez) No history of previous surgery - Family History Family History: Family History (Last Updated 01/05/18 @ 17:35 by Dominic Burroughs MD) Other Hypertension - Tobacco History Second Hand Smoke Exposure: No Tobacco Use In Past 30 Days: No Smoking Status: Never smoker - Alcohol History How Often Do You Have a Drink Containing Alcohol: Never - Substance Use History Substance History: No History of Abuse - Travel History Recent Travel in the [place] Within the Last 8 Weeks: No Recent Travel Out of the Country Within the Last 8 Weeks: No - Immunization History Tetanus Immunization: Unsure Medications and Allergies Active Medications: Active Medications Acetaminophen (Tylenol) 650 mg PO Q4H PRN PRN Reason: Temp > 100.4 Heparin Sodium/Dextrose (Heparin/D5w 25,000 U/250 Ml) 25,000 unit in 250 mls @ 0 mls/hr IV.CONT TITRATE PRN; Protocol PRN Reason: Per Protocol Last Admin: 01/05/18 13:53 Dose: 6 units/hr, 0.06 mls/hr Memantine (Namenda) 5 mg PO BID [place] Ondansetron HCl (Zofran Inj) 4 mg IV.PUSH Q6H PRN PRN Reason: NAUSEA OR VOMITING Pantoprazole Sodium (Protonix) 40 mg PO BID [place] Sennosides (Senokot) 17.2 mg PO Q12H PRN PRN Reason: Moderate Constipation Sodium Chloride (Ns Flush) 2 ml IV.FLUSH PRN PRN PRN Reason: FLUSH AFTER USING IV ACCESS Allergies Allergy/AdvReac Type Severity Reaction Status Date / Time No Known Allergies Allergy Verified 11/14/17 13:02 Home Medications Medication Instructions Recorded Confirmed Type memantine 5 mg PO BID 01/05/18 01/05/18 History mirtazapine 7.5 mg PO DAILY 01/05/18 01/05/18 History Exam Vital signs: Vital Signs 01/05/18 10:34 01/05/18 10:47 01/05/18 11:30 Temperature 96.7 F L Pulse Rate 118 H 113 H 108 H Respiratory Rate 24 18 18 Blood Pressure 125/88 125/88 125/88 Pulse Oximetry 100 01/05/18 11:40 01/05/18 16:57 Temperature 97.1 F L Pulse Rate 94 H 97 H Respiratory Rate 18 18 Blood Pressure 117/69 121/85 Pulse Oximetry 97 100 Intake & Output 01/04/18 01/05/18 01/05/18 18:59 06:59 18:59 Intake Total 1000 / 1000 Balance 1000 / 1000 Weight 49.895 kg Intake: IV 1000 / 1000 NS Inj 1,000 ML @ Wide Open IV. 1000 / 1000 SIG BOLUS ONE Rx#:[id number] Narrative: GENERAL: AAOx3, no acute distress, thin SKIN: Warm and dry, no rashes. HEAD: Atraumatic. Normocephalic. EYES: Pupils equal, round, reactive to light. No scleral icterus. No injection or drainage. ENT: No nasal bleeding or discharge. Moist mucous membranes. Nonerythematous oropharynx. NECK: Trachea midline. No JVD. Thyroid size within normal limits. CARDIOVASCULAR: Regular rate and rhythm. No murmur, no gallops, no rubs. RESPIRATORY: Clear and equal to auscultation bilaterally. No crackles, no wheezes. No accessory muscle use. GASTROINTESTINAL: Abdomen soft, non-tender, nondistended, normal active bowel sounds. Hepatic and splenic margins not palpable. MUSCULOSKELETAL: Extremities without clubbing or cyanosis. No obvious deformities. No edema. NEUROLOGICAL: Awake and alert. No obvious cranial nerve deficits. Motor grossly within normal limits. No focal deficits. Five out of 5 muscle strength in the arms and legs. Normal speech. PSYCHIATRIC: Appropriate mood and affect; insight and judgment normal. Results - Labs CBC & Chem 7: 01/05/18 11:11 01/05/18 11:11 Labs: Laboratory Results - last 24 hr 01/05/18 01/05/18 01/05/18 11:11 11:11 11:11 WBC 9.9 RBC 3.06 L Hgb 10.2 L Hct 29.2 L MCV 95.3 MCH 33.2 MCHC 34.9 RDW 14.9 Plt Count 467 H MPV 8.5 Neut % (Auto) 82.1 H Lymph % (Auto) 12.6 [place] % (Auto) 5.1 Eos % (Auto) 0.1 Baso % (Auto) 0.1 Neut # (Auto) 8.1 H Lymph # (Auto) 1.2 [place] # (Auto) 0.5 Eos # (Auto) 0.0 Baso # (Auto) 0.0 WBC Differential . Differential Comment Auto diff final PT 11.2 INR 1.1 APTT 22.9 L D-Dimer Quant (PE/DVT) Sodium 140 Potassium 3.1 L Chloride 99 Carbon Dioxide 25.3 Anion Gap 16 H BUN 41 H Creatinine 1.75 H Estimated GFR 28 L Random Glucose 165 H Calcium 8.7 Magnesium 2.2 Total Bilirubin 0.8 AST 24 ALT 18 Alkaline Phosphatase 60 Ammonia Total Creatine Kinase Troponin I 0.08 H B-Natriuretic Peptide Total Protein 5.8 L Albumin 2.5 L Urine Color Urine Clarity Urine pH Ur Specific [place] Urine Protein Urine Glucose (UA) Urine Ketones Urine Occult Blood Urine Nitrate Urine Bilirubin Urine Urobilinogen Ur Leukocyte Esterase Urine RBC Urine WBC Ur Squamous Epith Cells Urine Mucus Micro UA Comment Ur Microscopic Review Urine Culture Comments Blood Type Antibody Screen 01/05/18 01/05/18 01/05/18 11:11 11:11 11:11 WBC RBC Hgb Hct MCV MCH MCHC RDW Plt Count MPV Neut % (Auto) Lymph % (Auto) [place] % (Auto) Eos % (Auto) Baso % (Auto) Neut # (Auto) Lymph # (Auto) [place] # (Auto) Eos # (Auto) Baso # (Auto) WBC Differential Differential Comment PT INR APTT D-Dimer Quant (PE/DVT) Sodium Potassium Chloride Carbon Dioxide Anion Gap BUN Creatinine Estimated GFR Random Glucose Calcium Magnesium Total Bilirubin AST ALT Alkaline Phosphatase Ammonia 34 H Total Creatine Kinase Troponin I B-Natriuretic Peptide 61 Total Protein Albumin Urine Color Urine Clarity Urine pH Ur Specific [place] Urine Protein Urine Glucose (UA) Urine Ketones Urine Occult Blood Urine Nitrate Urine Bilirubin Urine Urobilinogen Ur Leukocyte Esterase Urine RBC Urine WBC Ur Squamous Epith Cells Urine Mucus Micro UA Comment Ur Microscopic Review Urine Culture Comments Blood Type O Negative Antibody Screen Negative 01/05/18 01/05/18 01/05/18 11:11 11:40 14:00 WBC RBC Hgb Hct MCV MCH MCHC RDW Plt Count MPV Neut % (Auto) Lymph % (Auto) [place] % (Auto) Eos % (Auto) Baso % (Auto) Neut # (Auto) Lymph # (Auto) [place] # (Auto) Eos # (Auto) Baso # (Auto) WBC Differential Differential Comment PT INR APTT D-Dimer Quant (PE/DVT) 7.70 H Sodium Potassium Chloride Carbon Dioxide Anion Gap BUN Creatinine Estimated GFR Random Glucose Calcium Magnesium Total Bilirubin AST ALT Alkaline Phosphatase Ammonia Total Creatine Kinase 69 Troponin I 0.06 H B-Natriuretic Peptide Total Protein Albumin Urine Color Yellow Urine Clarity Hazy H Urine pH 5.0 Ur Specific [place] 1.023 Urine Protein Negative Urine Glucose (UA) Negative Urine Ketones Trace H Urine Occult Blood Negative Urine Nitrate Negative Urine Bilirubin Negative Urine Urobilinogen 2.0 H Ur Leukocyte Esterase Negative Urine RBC Less than 1 Urine WBC 2 Ur Squamous Epith Cells 3 Urine Mucus Few H Micro UA Comment Cath-culture not ind Ur Microscopic Review Not Reportable Urine Culture Comments Cath-cult not ind Blood Type Antibody Screen - Imaging Impressions Head MRI 01/05/18 00:00 CONCLUSION: 1. There is diffuse atrophy. No evidence of acute stroke, hemorrhage, mass or mass effect. Chest X-Ray 01/05/18 10:47 CONCLUSION: Negative examination. Head CT 01/05/18 10:47 CONCLUSION: Negative CT Head non contrast. . Caprini VTE Risk Assessment Caprini VTE Risk Assessment: Moderate/High Risk (score >= 2) Caprini Risk Assessment Model: Point Value = 1 Point Value = 2 Point Value = 3 Point Value = 5 Age 41-60 Minor surgery BMI > 25 kg/m2 Swollen legs Varicose veins or History of unexplained or recurrent spontaneous Oral contraceptives or hormone replacement Sepsis (< 1 month) Serious lung disease, including pneumonia (< 1 month) Abnormal pulmonary function Acute myocardial infarction Congestive heart failure (< 1 month) History of inflammatory bowel disease Medical patient at bed rest Age 61-74 Arthroscopic surgery Major open surgery (> 45 min) Laparoscopic surgery (> 45 min) Malignancy Confined to bed (> 72 hours) Immobilizing plaster cast Central venous access Age >= 75 History of VTE Family history of VTE Factor V Leiden Prothrombin [id number] Lupus anticoagulant Anticardiolipin antibodies Elevated serum homocysteine Heparin-induced thrombocytopenia Other congenital or acquired thrombophilia Stroke (< 1 month) Elective arthroplasty Hip, pelvis, or leg fracture Acute spinal cord injury (< 1 month) Prophylaxis Regimen: Total Risk Factor Score Risk Level Prophylaxis Regimen 0-1 Low Early ambulation 2 Moderate Order ONE of the following: *Sequential Compression Device (SCD) *Heparin 5000 units SQ BID 3-4 Higher Order ONE of the following medications: *Heparin 5000 units SQ TID *Enoxaparin/Lovenox 40 mg SQ daily (WT < 150 kg, CrCl > 30 mL/min) *Enoxaparin/Lovenox 30 mg SQ daily (WT < 150 kg, CrCl > 10-29 mL/min) *Enoxaparin/Lovenox 30 mg SQ BID (WT < 150 kg, CrCl > 30 mL/min) AND/OR *Sequential Compression Device (SCD) 5 or more Highest Order ONE of the following medications: *Heparin 5000 units SQ TID (Preferred with Epidurals) *Enoxaparin/Lovenox 40 mg SQ daily (WT < 150 kg, CrCl > 30 mL/min) *Enoxaparin/Lovenox 30 mg SQ daily (WT < 150 kg, CrCl > 10-29 mL/min) *Enoxaparin/Lovenox 30 mg SQ BID (WT < 150 kg, CrCl > 30 mL/min) AND *Sequential Compression Device (SCD) Assessment and Plan - Plan Syncopal episode Etiology is unclear and so far workup only points to cardiac causes We will expand workup with carotid ultrasound, echocardiogram, MRI of brain Consult specialist as needed based on findings Elevated troponin with EKG changes Initial troponin of 0.8 followed by 0.[address] depression findings Patient denies any chest pain or shortness of breath, denies diaphoresis Cardiology consulted to assist with workup, appreciate consult Generalized weakness Her brother reports that she has become increasingly weak, her medical compliance is questionable She has had poor food choices, denying some of her favorite foods including [employer] peanut butter cups Her brother feels that her overall poor nutrition has contributed to weight loss which is made her weak and that that may have contributed to her fall Poor appetite As above increasing pattern of poor appetite Brother requested marijuana, this is unavailable here but we discussed the option of Marinol Consider barium swallow evaluation if patient is unable to tolerate food due to dysphagia Speech therapy for swallow eval Gastric ulcers Treated 2 months ago for multiple gastric ulcers which were causing upper GI bleed EGD was performed and no mention of dysphagia secondary to stricture was noted Resume pantoprazole 40 mg daily Generalized anxiety Brother reports that her sister is somewhat of a recluse does not like or trust strangers Her anxiety is increased by having to stay overnight here in the hospital Adding Marinol for appetite stimulation, but this may help with her anxiety as well DVT prophylaxis Heparin Drip
--- NOTE | 2018-01-05 18:08 | ECG ---
Date Performed: 01/05/2018 Time Performed: 10:43:58 PTAGE: 77 years EKG: SINUS TACHYCARDIA WITH FREQUENT PACs Left bundle branch block with secondary ST-T changes C ompared to previous tracing, HR is faster and PACs are new. ABNORMAL ECG PREVIOUS TRACING : 11/14/2017 13.14 DOCTOR: Ko Cerna Interpretating Date/Time 01/05/2018 18:05:59
--- NOTE | 2018-01-05 23:17 | US ---
EXAM DATE: 01/05/2018 12:00 AM EDT AGE/SEX: 77 years / Female INDICATIONS: Syncope. CLINICAL DATA: This is the patient's initial encounter. Patient reports that signs and symptoms have been present for 1 day and indicates a pain score of 0/10. MEDICAL/SURGICAL HISTORY: . GI bleed. None. COMPARISON: No prior exams available for comparison. VELOCITY PARAMETERS: ICA/CCA Ratio: Right 1.6 , Left . ICA: Right 80 cm/sec, Left . cm/sec CCA: Right 49 cm/sec, Left . cm/sec ECA: Right 78 cm/sec, Left . cm/sec Vertebral: Right 49 cm/sec antegrade, Left . cm/sec absent FINDINGS: Right Carotid: Mild arteriosclerotic plaque is visualized.The waveforms are within normal limits. Left Carotid: Not evaluated. Other: None. CONCLUSION: 1. Right Internal Carotid Artery: No hemodynamically significant stenosis 2. Left Internal Carotid Artery: Not evaluated, patient prematurely stopped the exam and did not wan t to continue to evaluate the left carotid artery. Electronically signed by: Brenton Richter MD 01/05/2018 11:15 PM EDT
[2018-01-06] LABS: Troponin I 0.06 ng/mL (0.02-0.05)
[2018-01-06] MEDS: DRONABINOL 2.5 MG CAPSULE PO SCH ×2 (00:31→20:14)
[2018-01-06 10:44] LABS: Calcium 7.6 mg/dL (8.5-10.1)
--- NOTE | 2018-01-06 15:08 | P.PNIM ---
Subjective Interval history: Patient is slightly less anxious and wants to go home. She understands we are still doing workup for cardiac causes of her syncope. Physical Exam Vital signs: Vital Signs 01/05/18 16:57 01/06/18 00:42 01/06/18 04:55 Temperature Pulse Rate 97 H 96 H 89 Respiratory Rate 18 16 12 Blood Pressure 121/85 112/78 113/76 Pulse Oximetry 100 01/06/18 08:00 01/06/18 09:00 01/06/18 12:00 Temperature 98.4 F 98.2 F Pulse Rate 96 H 96 H 97 H Respiratory Rate 16 15 Blood Pressure 105/79 98/62 L Pulse Oximetry 100 100 Intake & Output 01/05/18 01/06/18 01/06/18 18:59 06:59 18:59 Intake Total 1000 / 1000 Balance 1000 / 1000 Weight 49.895 kg 51.3 kg 51.3 kg Intake: IV 1000 / 1000 NS Inj 1,000 ML @ Wide Open IV. 1000 / 1000 SIG BOLUS ONE Rx#:[id number] Other: Weight On Admission 51.3 kg Narrative: GENERAL: AAOx3, no acute distress, thin, anxious, thin SKIN: Warm and dry, no rashes. HEAD: Atraumatic. Normocephalic. EYES: Pupils equal, round, reactive to light. No scleral icterus. No injection or drainage. ENT: No nasal bleeding or discharge. Moist mucous membranes. Nonerythematous oropharynx. NECK: Trachea midline. No JVD. Thyroid size within normal limits. CARDIOVASCULAR: Regular rate and rhythm. No murmur, no gallops, no rubs. RESPIRATORY: Clear and equal to auscultation bilaterally. No crackles, no wheezes. No accessory muscle use. GASTROINTESTINAL: Abdomen soft, non-tender, nondistended, normal active bowel sounds. Hepatic and splenic margins not palpable. MUSCULOSKELETAL: Extremities without clubbing or cyanosis. No obvious deformities. No edema. NEUROLOGICAL: Awake and alert. No obvious cranial nerve deficits. Motor grossly within normal limits. No focal deficits. Five out of 5 muscle strength in the arms and legs. Normal speech. PSYCHIATRIC: Appropriate mood and affect; insight and judgment normal. Results - Labs CBC & Chem 7: 01/05/18 11:11 01/06/18 10:03 Laboratory Results - last 24 hr 1001/05/18 01/05/18 14:00 20:00 23:00 APTT 30.5 H D Sodium Potassium Chloride Carbon Dioxide Anion Gap BUN Creatinine Estimated GFR Random Glucose Calcium Total Creatine Kinase 69 87 Troponin I 0.06 H 0.06 H Nasal Screen MRSA (PCR) 01/06/18 01/06/18 01/06/18 02:00 06:00 10:03 APTT 52.0 H D 46.6 H Sodium Potassium Chloride Carbon Dioxide Anion Gap BUN Creatinine Estimated GFR Random Glucose Calcium Total Creatine Kinase Troponin I Nasal Screen MRSA (PCR) Not detected 01/06/18 10:03 APTT Sodium 137 Potassium 3.0 L Chloride 102 Carbon Dioxide 28.0 Anion Gap 7 BUN 51 H Creatinine 1.46 H Estimated GFR 35 L Random Glucose 100 Calcium 7.6 L D Total Creatine Kinase Troponin I Nasal Screen MRSA (PCR) Microbiology 01/05/18 11:11 Blood - Peripheral Aerobic Blood Culture - Preliminary No growth in 1 day 01/05/18 11:11 Blood - Peripheral Anaerobic Blood Culture - Preliminary No growth in 1 day 01/05/18 11:01 Blood - Peripheral Aerobic Blood Culture - Preliminary No growth in 1 day 01/05/18 11:01 Blood - Peripheral Anaerobic Blood Culture - Preliminary No growth in 1 day - Imaging Impressions Carotid Doppler Study 01/05/18 00:00 CONCLUSION: 1. Right Internal Carotid Artery: No hemodynamically significant stenosis 2. Left Internal Carotid Artery: Not evaluated, patient prematurely stopped the exam and did not want to continue to evaluate the left carotid artery. Head MRI 01/05/18 00:00 CONCLUSION: 1. There is diffuse atrophy. No evidence of acute stroke, hemorrhage, mass or mass effect. Assessment and Plan - Plan Syncopal episode Etiology is unclear and so far workup only points to cardiac causes ECHO shows EF = 35-40%, otherwise normal appearing heart Carotid US was negative on right, refused left side MRI of brain showed no acute process Consult specialist as needed based on findings Elevated troponin with EKG changes Initial troponin of 0.8 followed by 0.[address] depression, but follow up EKG was normal EF of 35-40% in otherwise normal appearing heart may indicate ischemic dysfunction Appreciate cardiology consult Poor appetite w/ Generalized Weakness Brother reports she has had increasingly poor appetite over the last year She tolerated Marinol well, still not hungry, but is less anxious Speech therapy performed swallow eval, no abnormalities Gastric ulcers Treated 2 months ago for multiple gastric ulcers which were causing upper GI bleed EGD was performed and no mention of dysphagia secondary to stricture was noted Continue pantoprazole 40 mg daily Generalized anxiety Brother reports that her sister is somewhat of a recluse does not like or trust strangers She is more calm today after starting Marinol last night DVT prophylaxis Heparin Drip Discharge Planning Further cardiac work up pending, july d/c home when cleared by cardiology
--- NOTE | 2018-01-06 16:00 | P.PNCA ---
Subjective Interval history: No acute events. Stating this am that her nephew is going to pick her up. Medications and Allergies Active Medications: Active Medications Acetaminophen (Tylenol) 650 mg PO Q4H PRN PRN Reason: Temp > 100.4 Chlorhexidine Gluconate (Chlorhexidine 2% Cloth) 3 pack TOPICAL DAILY@0400 [place] Stop: 01/12/18 03:59 Chlorhexidine Gluconate (Chlorhexidine 2% Cloth) 3 pack TOPICAL DAILY@0400 PRN PRN Reason: Extra cloth needed Stop: 01/12/18 03:59 Dronabinol (Marinol) 2.5 mg PO HS [facility] Last Admin: 01/06/18 00:31 Dose: 2.5 mg Heparin Sodium/Dextrose (Heparin/D5w 25,000 U/250 Ml) 25,000 unit in 250 mls @ 0 mls/hr IV.CONT TITRATE PRN; Protocol PRN Reason: Per Protocol Last Titration: 01/06/18 06:14 Dose: 700 units/hr, 7 mls/hr Memantine (Namenda) 5 mg PO BID [facility] Last Admin: 01/06/18 08:52 Dose: 5 mg Ondansetron HCl (Zofran Inj) 4 mg IV.PUSH Q6H PRN PRN Reason: NAUSEA OR VOMITING Pantoprazole Sodium (Protonix) 40 mg PO BID [facility] Last Admin: 01/06/18 08:53 Dose: 40 mg Sennosides (Senokot) 17.2 mg PO Q12H PRN PRN Reason: Moderate Constipation Sodium Chloride (Ns Flush) 2 ml IV.FLUSH PRN PRN PRN Reason: FLUSH AFTER USING IV ACCESS Allergies Allergy/AdvReac Type Severity Reaction Status Date / Time No Known Allergies Allergy Verified 11/14/17 13:02 Home Medications Medication Instructions Recorded Confirmed Type memantine 5 mg PO BID 01/05/18 01/05/18 History mirtazapine 7.5 mg PO DAILY 01/05/18 01/05/18 History Physical Exam Vital signs: Vital Signs 01/05/18 16:57 01/06/18 00:42 01/06/18 04:55 Temperature Pulse Rate 97 H 96 H 89 Respiratory Rate 18 16 12 Blood Pressure 121/85 112/78 113/76 Pulse Oximetry 100 01/06/18 08:00 01/06/18 09:00 01/06/18 12:00 Temperature 98.4 F 98.2 F Pulse Rate 96 H 96 H 97 H Respiratory Rate 16 15 Blood Pressure 105/79 98/62 L Pulse Oximetry 100 100 Intake & Output 01/05/18 01/06/18 01/06/18 18:59 06:59 18:59 Intake Total 1000 / 1000 Balance 1000 / 1000 Weight 49.895 kg 51.3 kg 51.3 kg Intake: IV 1000 / 1000 NS Inj 1,000 ML @ Wide Open IV. 1000 / 1000 SIG [facility]OLUS ONE Rx#:[id number] Other: Weight On Admission 51.3 kg - Constitutional no acute distress - Routine HEENT Exam Head: Present: normocephalic Eye: Present: EOMI - Routine Neck Exam Absent: JVD - Routine Respiratory Exam Present: CTA bilaterally - Routine Cardiovascular Exam Present: RRR, S1, S2 - Routine Abdominal Exam Present: soft, normoactive bowel sounds - Routine Extremities Exam Absent: edema - Routine Neurological Exam Present: alert oriented to place and person, not time Results 01/05/18 11:11 01/06/18 10:03 Cardiac Enzymes 01/05/18 01/05/18 01/05/18 Range/Units 11:11 11:11 14:00 AST 24 (15-37) U/L Troponin I 0.08 H 0.06 H (0.02-0.05) ng/mL B-Natriuretic Peptide 61 (0-100) pg/mL 01/05/18 Range/Units 23:00 AST (15-37) U/L Troponin I 0.06 H (0.02-0.05) ng/mL B-Natriuretic Peptide (0-100) pg/mL Coagulation 01/05/18 01/05/18 01/05/18 Range/Units 11:11 11:11 20:00 PT 11.2 (9.8-11.6) sec APTT 22.9 L 30.5 H D (24.3-30.1) sec B-Natriuretic Peptide 61 (0-100) pg/mL 01/06/18 01/06/18 Range/Units 02:00 10:03 PT (9.8-11.6) sec APTT 52.0 H D 46.6 H (24.3-30.1) sec B-Natriuretic Peptide (0-100) pg/mL CBC 01/05/18 Range/Units 11:11 WBC 9.9 (4.0-11.0) th/mm3 RBC 3.06 L (4.00-5.30) mil/mm3 Hgb 10.2 L (11.6-15.3) gm/dL Hct 29.2 L (35.0-46.0) % Plt Count 467 H (150-450) th/mm3 Neut # (Auto) 8.1 H (1.8-7.7) th/mm3 Lymph # (Auto) 1.2 (1.0-4.8) th/mm3 [place] # (Auto) 0.5 (0.0-0.9) th/mm3 Eos # (Auto) 0.0 (0.0-0.4) th/mm3 Baso # (Auto) 0.0 (0.0-0.2) th/mm3 Comprehensive Metabolic Panel 01/05/18 01/06/18 Range/Units 11:11 10:03 Sodium 140 137 (136-145) meq/L Potassium 3.1 L 3.0 L (3.5-5.1) meq/L Chloride 99 102 (98-107) meq/L Carbon Dioxide 25.3 28.0 (21.0-32.0) meq/L BUN 41 H 51 H (7-18) mg/dL Creatinine 1.75 H 1.46 H (0.50-1.00) mg/dL Calcium 8.7 7.6 L D (8.5-10.1) mg/dL AST 24 (15-37) U/L ALT 18 (10-53) U/L Alkaline Phosphatase 60 (45-117) U/L Total Protein 5.8 L (6.4-8.2) g/dL Albumin 2.5 L (3.4-5.0) g/dL Intake and Output 01/06/18 01/06/18 01/06/18 06:59 14:59 22:59 Other: Weight 51.3 kg 51.3 kg Weight On Admission 51.3 kg Patient Weight 01/07/18 06:59 Weight 51.3 kg - Imaging and Cardiology Imaging: Impressions Carotid Doppler Study 01/05/18 00:00 CONCLUSION: 1. Right Internal Carotid Artery: No hemodynamically significant stenosis 2. Left Internal Carotid Artery: Not evaluated, patient prematurely stopped the exam and did not want to continue to evaluate the left carotid artery. Head MRI 01/05/18 00:00 CONCLUSION: 1. There is diffuse atrophy. No evidence of acute stroke, hemorrhage, mass or mass effect. Chest X-Ray 01/05/18 10:47 CONCLUSION: Negative examination. Head CT 01/05/18 10:47 CONCLUSION: Negative CT Head non contrast. . Assessment and Plan - Plan Syncope- likely vasovagal mediated in the context of poor po intake, her Cr was elevated on admission and has improved with hydration, No significant valvular heart disease or abnormal rhythm on telemetry. Neuro w/up (MRI, Carotid US negative thus far) New Onset Systolic HF EF 35-40%- would recommend stress test prior to discharge (if patient willing to cooperate with testing, she is adamant again coronary angiogram). start very low dose BB, with plans of adding SUSHMA-i once renal function improves NSTEMI- mild elevation in the context of renal dysfunction and tachycardia likely more demand imbalance rather than true epicardial thrombosis continue to monitor. monitor CBC, continue heparin gtt for another 24 hours to complete 48 hours Currently CP free. Plan to start antifailure medications as tolerated and Lexiscan prior to d/c.
[2018-01-06 17:29] LABS: Baso # (Auto) 0.1 th/mm3 (0.0-0.2); Baso % (Auto) 0.7 % (0.0-2.0); Eos % (Auto) 0.5 % (0.0-4.0); Hematocrit 21.1 % (35.0-46.0); Hemoglobin 7.3 gm/dL (11.6-15.3); Lymph % (Auto) 24.8 % (9.0-44.0); Mean Corpuscular HGB Conc 34.5 % (32.0-36.0); Mean Corpuscular Hemoglobin 32.9 pg (27.0-34.0); Mean Corpuscular Volume 95.2 fL (80.0-100.0); Mean Platelet Volume 8.4 fL (7.0-11.0); Mono # (Auto) 0.4 th/mm3 (0.0-0.9); Mono % (Auto) 5.6 % (0.0-8.0); Neut # (Auto) 5.4 th/mm3 (1.8-7.7); Neut % (Auto) 68.4 % (16.0-70.0); Platelet Count 336 th/mm3 (150-450); Red Blood Count 2.22 mil/mm3 (4.00-5.30); White Blood Count 7.9 th/mm3 (4.0-11.0)
[2018-01-06] MEDS ORDERED: Sodium Chlor 0.9% Inj 250 ML IV.SIG SCH (19:00)
--- NOTE | 2018-01-06 20:08 | ECG ---
Date Performed: 01/05/2018 Time Performed: 23:30:53 PTAGE: 77 years EKG: POSSIBLE ACCELERATED JUNCTIONAL RHYTHM LEFT BUNDLE BRANCH BLOCK ABNORMAL ECG PREVIOUS TRACING : 01/05/2018 18.02 Since the previous tracing, no significant change noted DOCTOR: Kina Dubois Interpretating Date/Time 01/06/2018 20:06:37
--- NOTE | 2018-01-06 20:33 | ECG ---
Date Performed: 01/05/2018 Time Performed: 18:02:10 PTAGE: 77 years EKG: Sinus rhythm LEFT BUNDLE BRANCH BLOCK ABNORMAL ECG PREVIOUS TRACING : 01/05/2018 10.43 Since the previous tracing, no significant change noted DOCTOR: Kina Dubois Interpretating Date/Time 01/06/2018 20:32:01
[2018-01-06] MEDS ORDERED: Potassium Chloride 25 MEQ Effervescent Tablet PO SCH (21:30)
[2018-01-06] MEDS ORDERED: Potassium Chlor 20 mEq Premix 20 MEQ/100 ML PIGGYBACK IV.SIG SCH (21:45)
[2018-01-07] MEDS: Chlorhexidine Gluconate 2% 1 Pack (2 Cloths) TOPICAL SCH (03:28)
[2018-01-07] MEDS ORDERED: Chlorhexidine Gluconate 2% 1 Pack (2 Cloths) TOPICAL PRN (04:00)
[2018-01-07 07:24] LABS: Hematocrit 33.3 % (35.0-46.0); Hemoglobin 11.6 gm/dL (11.6-15.3); Mean Corpuscular HGB Conc 34.7 % (32.0-36.0); Mean Corpuscular Hemoglobin 30.5 pg (27.0-34.0); Mean Corpuscular Volume 87.9 fL (80.0-100.0); Mean Platelet Volume 8.5 fL (7.0-11.0); Platelet Count 314 th/mm3 (150-450); Red Blood Count 3.79 mil/mm3 (4.00-5.30); Red Cell Distribution Width 19.6 % (11.6-17.2); White Blood Count 11.7 th/mm3 (4.0-11.0)
[2018-01-07 07:44] LABS: Calcium 8.2 mg/dL (8.5-10.1); Carbon Dioxide 28.9 meq/L (21.0-32.0); Potassium 3.4 meq/L (3.5-5.1)
[2018-01-07] MEDS: Metoprolol Tartrate 25 MG Tablet PO SCH ×2 (09:32→20:08)
--- NOTE | 2018-01-07 11:13 | P.PNIM ---
Subjective Interval history: Patient had a precipitous drop in her hemoglobin yesterday afternoon. Heparin was immediately stopped and she was transfused 2 units of packed red blood cells. Overnight she had 2-3 episodes of blood mixed emesis. Total loss from emesis was approximately 100 mL. She has had no recurrence of this since the episodes overnight. Guaiac stools are pending. Physical Exam Vital signs: Vital Signs 01/06/18 12:00 01/06/18 16:00 01/06/18 20:00 Temperature 98.2 F 98.4 F 98.3 F Pulse Rate 97 H 94 H 101 H Respiratory Rate 15 17 20 Blood Pressure 98/62 L 103/65 117/65 Pulse Oximetry 100 100 100 01/06/18 20:22 01/06/18 23:06 01/07/18 00:00 Temperature 98.3 F 98 F 98 F Pulse Rate 101 H 90 87 Respiratory Rate 20 20 20 Blood Pressure 117/65 86/55 L 131/64 Pulse Oximetry 100 100 100 01/07/18 04:00 01/07/18 08:00 Temperature 98.4 F 98.6 F Pulse Rate 84 88 Respiratory Rate 22 26 H Blood Pressure 129/70 122/72 Pulse Oximetry 100 98 Intake & Output 01/06/18 01/07/18 01/07/18 18:59 06:59 18:59 Intake Total 170 / 170 1380 / 1380 Output Total 400 / 400 100 / 100 Balance 170 / 170 980 / 980 -100 / -100 Weight 51.3 kg 48.3 kg Intake: IV 170 / 170 100 / 100 Heparin/D5W 25,000 U/250 mL 25, 170 / 170 000 unit In 250 ml @ Per Protocol IV.CONT TITRATE PRN Rx #:[id number] KCl 20 mEq Premix Inj 20 meq In 100 / 100 100 ml @ 50 mls/hr IV.SIG DAILY@2145 [facility] Rx#:[id number] Oral 480 / 480 Intake (Blood Product) Amt 800 / 800 Rbc As-3 Leukoreduced Unit 400 / 400 [id number] Rbc As-3 Leukoreduced Unit 400 / 400 [id number] Output: Urine 400 / 400 Emesis 100 / 100 Other: # Voids 1 # Bowel Movements 0 Narrative: GENERAL: AAOx3, no acute distress, thin, anxious, thin SKIN: Warm and dry, no rashes. HEAD: Atraumatic. Normocephalic. EYES: Pupils equal, round, reactive to light. No scleral icterus. No injection or drainage. ENT: No nasal bleeding or discharge. Moist mucous membranes. Nonerythematous oropharynx. NECK: Trachea midline. No JVD. Thyroid size within normal limits. CARDIOVASCULAR: Regular rate and rhythm. No murmur, no gallops, no rubs. RESPIRATORY: Clear and equal to auscultation bilaterally. No crackles, no wheezes. No accessory muscle use. GASTROINTESTINAL: Abdomen soft, non-tender, nondistended, normal active bowel sounds. Hepatic and splenic margins not palpable. MUSCULOSKELETAL: Extremities without clubbing or cyanosis. No obvious deformities. No edema. NEUROLOGICAL: Awake and alert. No obvious cranial nerve deficits. Motor grossly within normal limits. No focal deficits. Five out of 5 muscle strength in the arms and legs. Normal speech. PSYCHIATRIC: Appropriate mood and affect; insight and judgment normal. Results - Labs CBC & Chem 7: 01/07/18 06:16 01/07/18 06:16 Laboratory Results - last 24 hr 01/06/18 01/06/18 01/06/18 17:18 17:18 18:21 WBC 7.9 RBC 2.22 L Hgb 7.3 L D Hct 21.1 L MCV 95.2 MCH 32.9 MCHC 34.5 RDW 15.0 Plt Count 336 MPV 8.4 Neut % (Auto) 68.4 Lymph % (Auto) 24.8 [place] % (Auto) 5.6 Eos % (Auto) 0.5 Baso % (Auto) 0.7 Neut # (Auto) 5.4 Lymph # (Auto) 2.0 [place] # (Auto) 0.4 Eos # (Auto) 0.0 Baso # (Auto) 0.1 WBC Differential . Differential Comment Auto diff final APTT 48.3 H Sodium Potassium Chloride Carbon Dioxide Anion Gap BUN Creatinine Estimated GFR Random Glucose Calcium MTS Gel Crossmatch See Detail 01/06/18 01/07/18 01/07/18 20:13 06:16 06:16 WBC 11.7 H RBC 3.79 L Hgb 11.6 D Hct 33.3 L MCV 87.9 D MCH 30.5 MCHC 34.7 RDW 19.6 H D Plt Count 314 MPV 8.5 Neut % (Auto) Lymph % (Auto) [place] % (Auto) Eos % (Auto) Baso % (Auto) Neut # (Auto) Lymph # (Auto) [place] # (Auto) Eos # (Auto) Baso # (Auto) WBC Differential Differential Comment APTT Sodium 139 Potassium 2.9 L* 3.4 L Chloride 99 Carbon Dioxide 28.9 Anion Gap 11 BUN 39 H Creatinine 1.23 H Estimated GFR 42 L Random Glucose 105 Calcium 8.2 L MTS Gel Crossmatch Microbiology 01/05/18 11:11 Blood - Peripheral Aerobic Blood Culture - Preliminary No growth in 2 days 01/05/18 11:11 Blood - Peripheral Anaerobic Blood Culture - Preliminary No growth in 2 days 01/05/18 11:01 Blood - Peripheral Aerobic Blood Culture - Preliminary No growth in 2 days 01/05/18 11:01 Blood - Peripheral Anaerobic Blood Culture - Preliminary No growth in 2 days Assessment and Plan - Plan Syncopal episode Etiology may be more GI related, bleeding ulcers may still be present, cardiology workup still warranted ECHO shows EF = 35-40%, otherwise normal appearing heart Carotid US was negative on right, refused left side MRI of brain showed no acute process Elevated troponin with EKG changes Initial troponin of 0.8 followed by 0.[address] depression, but follow up EKG was normal EF of 35-40% in otherwise normal appearing heart may indicate ischemic dysfunction Consider GI bleed as possible contributor to elevated troponins Stress test is pending Appreciate cardiology consult Gastric ulcers, bleeding, anemia Treated 2 months ago for multiple gastric ulcers which were causing upper GI bleed EGD was performed and no mention of dysphagia secondary to stricture was noted Patient compliance with Protonix at home is questionable, given active GI bleed on heparin it is likely her ulcers are still present Patient transfused 2 units of packed red blood cells, hemoglobin went from 7.3- 11.6 Follow CBC for hemoglobin trend Continue pantoprazole 40 mg daily Consult gastroenterology Poor appetite w/ Generalized Weakness Brother reports she has had increasingly poor appetite over the last year She tolerated Marinol well, still not hungry, but is less anxious Speech therapy performed swallow eval, no abnormalities Generalized anxiety Brother reports that her sister is somewhat of a recluse does not like or trust strangers She is more calm today after starting Marinol DVT prophylaxis Heparin drip stopped due to upper GI bleed, now resolved Discharge Planning Stress test pending, GI consult pending
[2018-01-07] MEDS: DRONABINOL 2.5 MG CAPSULE PO SCH ×2 (13:17→20:08)
[2018-01-07] MEDS ORDERED: Pantoprazole Inj 80 MG in Sodium Chlor 0.9% Inj 100 ML IV.CONT SCH (14:00)
--- NOTE | 2018-01-07 14:39 | P.DIET ---
Nutritional Evaluation Type of nutrition evaluation: initial Nutrition screening: Poor PO Intake, MDC Objective - Objective [place] body weight: 46 kg % IBW: 104 Body Weight Used for Calculations: Actual (48KG) Energy Needs - Lower Range (kCal/kg): 30 Energy Needs - Upper Range (kCal/kg): 35 Lower Limit kCal/kg (kCals): 1,440 Upper Limit kCal/kg (kCals): 1,680 Lower Limit Protein Factor (Grams per Kg): 1.1 Upper Limit Protein Factor (Grams per Kg): 1.3 Lower Protein Needs (Protein): 53 Upper Protein Needs (Protein): 62 Fluid Factor (ml/kg): 30 Estimated Fluid Needs (ml): 1,440 Dietitian Reviewed in Medical Record: Current diet, Curent medications, Intake & Output, Labs, Medical history Diet Order: Cardiac Objective Comments: PMH: multiple gastric ulcers, upper GI bleed Meds include: Marinol Assessment Assessment: Pt at nutritional risk r/t dx and poor po intake. Pt has refused all meals since admission. Per MD note: "Brother reports she has had increasingly poor appetite over the last year.She tolerated Marinol well, still not hungry, but is less anxious, Speech therapy performed swallow eval, no abnormalities. Her nutritional needs at assessed above." Will provide Ensure tid, each contain 250kcals and 9 gms protein. If po intake does not improve, recommend considering TF If consistent with goals of care. Will provide recs relative to clinical course. Recommendations: Cardiac diet, will provide Ensure TID If po intake does not improve, recommend considering TF If consistent with goals of care. Will provide recs relative to clinical course. Dietitian to Monitor: Supplement acceptance, Intake & Output, Weight change, PO Intake
--- NOTE | 2018-01-07 16:27 | P.CONGI ---
History of Present Illness Consult date: 01/07/18 Consult reason: History of multiple large ulcers, initial cardiac issues suspected heparin given , now off heparin evaluate gastric ulcers Chief complaint: Syncope, atypical chest pain w/ dyspnea, altered History of Present Illness: This is a 77-year-old female who presented to the emergency room on 01/05/2018 with a syncopal episode at home. Initially she was evaluated for some cardiac concerns and causes and was placed on heparin. Also has history of GI bleed approximately 2 months ago with EGD done on 11/16/2017 showing 2 large ulcers one in the duodenal bulb and the other in the gastric antrum, and hiatal hernia. It is questionable whether she is been taking her medications are not currently she denies any vomiting abdominal pain or dyspepsia but does note occasional dysphasia and some nausea if the food feels it is sticking in the esophagus. Gastroenterology was consulted to assist in her care and to monitor for any acute GI bleeding as well as her recent history of multiple ulcers. Currently patient has no fever, some baseline dementia and poor historian. [facility] - History History Provided By: Patient - Medical History Medical History: Medical History (Last Reviewed 01/06/18 @ 07:42 by Jaimie Lacey) GI bleed Patient denies medical problems - Surgical History Surgical History: Surgical History (Last Reviewed 01/05/18 @ 10:52 by Addie Sanchez) No history of previous surgery - Family History Family History: Family History (Last Updated 01/05/18 @ 17:35 by Dominic Burroughs MD) Other Hypertension - Tobacco History Second Hand Smoke Exposure: No Tobacco Use In Past 30 Days: No Smoking Status: Never smoker - Alcohol History How Often Do You Have a Drink Containing Alcohol: Never - Substance Use History Substance History: No History of Abuse - Travel History Recent Travel in the [place] Within the Last 8 Weeks: No Recent Travel Out of the Country Within the Last 8 Weeks: No - Immunization History Tetanus Immunization: Never Vaccinated Hx Influenza Vaccine This Season: No Medications and Allergies Active Medications: Active Medications Acetaminophen (Tylenol) 650 mg PO Q4H PRN PRN Reason: Temp > 100.4 Chlorhexidine Gluconate (Chlorhexidine 2% Cloth) 3 pack TOPICAL DAILY@0400 [facility] Stop: 01/12/18 03:59 Last Admin: 01/07/18 03:28 Dose: 3 pack Chlorhexidine Gluconate (Chlorhexidine 2% Cloth) 3 pack TOPICAL DAILY@0400 PRN PRN Reason: Extra cloth needed Stop: 01/12/18 03:59 Dronabinol (Marinol) 2.5 mg PO BID [facility] Last Admin: 01/07/18 13:17 Dose: 2.5 mg Pantoprazole Sodium 80 mg/ (Sodium Chloride) 100 mls @ 10 mls/hr IV.CONT CONT [facility] Memantine (Namenda) 5 mg PO BID [facility] Last Admin: 01/07/18 09:32 Dose: 5 mg Metoprolol Tartrate (Lopressor) 12.5 mg PO BID [facility] Last Admin: 01/07/18 09:32 Dose: 12.5 mg Miscellaneous (Pill Splitter) 1 each OTHER UNSCH [facility] Ondansetron HCl (Zofran Inj) 4 mg IV.PUSH Q6H PRN PRN Reason: NAUSEA OR VOMITING Last Admin: 01/07/18 05:52 Dose: 4 mg Sennosides (Senokot) 17.2 mg PO Q12H PRN PRN Reason: Moderate Constipation Sodium Chloride (Ns Flush) 2 ml IV.FLUSH PRN PRN PRN Reason: FLUSH AFTER USING IV ACCESS Allergies Allergy/AdvReac Type Severity Reaction Status Date / Time No Known Allergies Allergy Verified 11/14/17 13:02 Home Medications Medication Instructions Recorded Confirmed Type memantine 5 mg PO BID 01/05/18 01/05/18 History mirtazapine 7.5 mg PO DAILY 01/05/18 01/05/18 History Exam Vital signs: Vital Signs 01/06/18 20:00 01/06/18 20:22 01/06/18 23:06 Temperature 98.3 F 98.3 F 98 F Pulse Rate 101 H 101 H 90 Respiratory Rate 20 20 20 Blood Pressure 117/65 117/65 86/55 L Pulse Oximetry 100 100 100 01/07/18 00:00 01/07/18 04:00 01/07/18 08:00 Temperature 98 F 98.4 F 98.6 F Pulse Rate 87 84 88 Respiratory Rate 20 22 26 H Blood Pressure 131/64 129/70 122/72 Pulse Oximetry 100 100 98 01/07/18 12:00 Temperature 98.2 F Pulse Rate 79 Respiratory Rate 20 Blood Pressure 107/60 Pulse Oximetry 97 Intake & Output 01/06/18 01/07/18 01/07/18 18:59 06:59 18:59 Intake Total 170 / 170 1380 / 1380 Output Total 400 / 400 100 / 100 Balance 170 / 170 980 / 980 -100 / -100 Weight 51.3 kg 48.3 kg Intake: IV 170 / 170 100 / 100 Heparin/D5W 25,000 U/250 mL 25, 170 / 170 000 unit In 250 ml @ Per Protocol IV.CONT TITRATE PRN Rx #:[id number] KCl 20 mEq Premix Inj 20 meq In 100 / 100 100 ml @ 50 mls/hr IV.SIG DAILY@2144 [facility] Rx#:[id number] Oral 480 / 480 Intake (Blood Product) Amt 800 / 800 Rbc As-3 Leukoreduced Unit 400 / 400 [id number] Rbc As-3 Leukoreduced Unit 400 / 400 [id number] Output: Urine 400 / 400 Emesis 100 / 100 Other: # Voids 1 # Bowel Movements 0 - Constitutional mild distress, disheveled, cooperative - Routine HEENT Exam Head: Present: normocephalic ENT: Present: mucous membranes dry (Pale) - Routine Respiratory Exam Present: accessory muscle use (Even, unlabored at rest) - Routine Cardiovascular Exam Present: S1, S2 - Routine Abdominal Exam Present: soft, normoactive bowel sounds (Soft) Results - Labs CBC & Chem 7: 01/07/18 06:16 01/07/18 06:16 Labs: Laboratory Results - last 24 hr 01/06/18 01/06/18 01/06/18 17:18 17:18 18:21 WBC 7.9 RBC 2.22 L Hgb 7.3 L D Hct 21.1 L MCV 95.2 MCH 32.9 MCHC 34.5 RDW 15.0 Plt Count 336 MPV 8.4 Neut % (Auto) 68.4 Lymph % (Auto) 24.8 [place] % (Auto) 5.6 Eos % (Auto) 0.5 Baso % (Auto) 0.7 Neut # (Auto) 5.4 Lymph # (Auto) 2.0 [place] # (Auto) 0.4 Eos # (Auto) 0.0 Baso # (Auto) 0.1 WBC Differential . Differential Comment Auto diff final APTT 48.3 H Sodium Potassium Chloride Carbon Dioxide Anion Gap BUN Creatinine Estimated GFR Random Glucose Calcium MTS Gel Crossmatch See Detail 01/06/18 01/07/18 01/07/18 20:13 06:16 06:16 WBC 11.7 H RBC 3.79 L Hgb 11.6 D Hct 33.3 L MCV 87.9 D MCH 30.5 MCHC 34.7 RDW 19.6 H D Plt Count 314 MPV 8.5 Neut % (Auto) Lymph % (Auto) [place] % (Auto) Eos % (Auto) Baso % (Auto) Neut # (Auto) Lymph # (Auto) [place] # (Auto) Eos # (Auto) Baso # (Auto) WBC Differential Differential Comment APTT Sodium 139 Potassium 2.9 L* 3.4 L Chloride 99 Carbon Dioxide 28.9 Anion Gap 11 BUN 39 H Creatinine 1.23 H Estimated GFR 42 L Random Glucose 105 Calcium 8.2 L MTS Gel Crossmatch Assessment and Plan - Plan 77-year-old female who presented to the emergency room on 01/05/2018 with a syncopal episode at home. Initially she was evaluated for some cardiac concerns and causes and was placed on heparin. Also has history of GI bleed approximately 2 months ago with EGD done on 11/16/2017 showing 2 large ulcers one in the duodenal bulb and the other in the gastric antrum, and hiatal hernia. It is questionable whether she is been taking her medications are not currently she denies any vomiting abdominal pain or dyspepsia but does note occasional dysphasia and some nausea if the food feels it is sticking in the esophagus. Gastroenterology was consulted to assist in her care and to monitor for any acute GI bleeding as well as her recent history of multiple ulcers. Currently patient has no fever, some baseline dementia and poor historian. Looks as if cardiology is planning stress test, so workup needs to be complete and cleared with cardiology before further EGD is done History of large duodenal ulcers and gastric ulcers, last EGD done on 11/16/2017 patient placed on PPI but consider with her baseline dementia whether she was taken medication History of syncopal episode Decreased appetite over the past 2 months, also having some symptoms of dysphasia and feeling food gets stuck worsening over the past few weeks History of alcohol use and class D esophagitis which could be related to her dysphasia symptoms, according to old records Plan Diet, cardiac as tolerated monitor for any choking episodes Consider EGD , stress test pending, will need to clear with cardiology Serial hemoglobin hematocrit every 6 hours to monitor hemoglobin Protonix drip initiated note heparin drip has been DC'd Monitor labs Further recommendations to follow Patient was seen per myself and Dr. Galloway, note was written on his back
[2018-01-07] MEDS: Pantoprazole Inj 80 MG in Sodium Chlor 0.9% Inj 100 ML IV.CONT SCH (17:34)
[2018-01-08] MEDS: Pantoprazole Inj 80 MG in Sodium Chlor 0.9% Inj 100 ML IV.CONT SCH ×2 (01:46→12:44)
[2018-01-08] MEDS: Chlorhexidine Gluconate 2% 1 Pack (2 Cloths) TOPICAL SCH (03:01)
--- NOTE | 2018-01-08 06:45 | P.PNCA ---
Medications and Allergies Active Medications: Active Medications Acetaminophen (Tylenol) 650 mg PO Q4H PRN PRN Reason: Temp > 100.4 Chlorhexidine Gluconate (Chlorhexidine 2% Cloth) 3 pack TOPICAL DAILY@0400 [facility] Stop: 01/12/18 03:59 Last Admin: 01/08/18 03:01 Dose: 3 pack Chlorhexidine Gluconate (Chlorhexidine 2% Cloth) 3 pack TOPICAL DAILY@0400 PRN PRN Reason: Extra cloth needed Stop: 01/12/18 03:59 Dronabinol (Marinol) 2.5 mg PO BID [facility] Last Admin: 01/07/18 20:08 Dose: 2.5 mg Pantoprazole Sodium 80 mg/ (Sodium Chloride) 100 mls @ 10 mls/hr IV.CONT CONT [facility] Last Admin: 01/08/18 01:46 Dose: 10 mls/hr Memantine (Namenda) 5 mg PO BID [facility] Last Admin: 01/07/18 20:08 Dose: 5 mg Metoprolol Tartrate (Lopressor) 12.5 mg PO BID [facility] Last Admin: 01/07/18 20:08 Dose: 12.5 mg Miscellaneous (Pill Splitter) 1 each OTHER [facility] Ondansetron HCl (Zofran Inj) 4 mg IV.PUSH Q6H PRN PRN Reason: NAUSEA OR VOMITING Last Admin: 01/07/18 05:52 Dose: 4 mg Sennosides (Senokot) 17.2 mg PO Q12H PRN PRN Reason: Moderate Constipation Sodium Chloride (Ns Flush) 2 ml IV.FLUSH PRN PRN PRN Reason: FLUSH AFTER USING IV ACCESS Allergies Allergy/AdvReac Type Severity Reaction Status Date / Time No Known Allergies Allergy Verified 11/14/17 13:02 Home Medications Medication Instructions Recorded Confirmed Type memantine 5 mg PO BID 01/05/18 01/05/18 History mirtazapine 7.5 mg PO DAILY 01/05/18 01/05/18 History Physical Exam Vital signs: Vital Signs 01/07/18 08:00 01/07/18 12:00 01/07/18 16:00 Temperature 98.6 F 98.2 F 98.1 F Pulse Rate 88 79 91 H Respiratory Rate 26 H 20 20 Blood Pressure 122/72 107/60 119/73 Pulse Oximetry 98 97 99 01/07/18 20:00 01/08/18 00:00 01/08/18 04:00 Temperature 99.4 F 99 F 99 F Pulse Rate 83 80 78 Respiratory Rate 13 17 23 Blood Pressure 114/65 111/70 116/70 Pulse Oximetry 99 98 100 Intake & Output 01/07/18 01/07/18 01/08/18 06:59 18:59 06:59 Intake Total 1380 / 1380 490 / 490 340 / 340 Output Total 400 / 400 400 / 400 300 / 300 Balance 980 / 980 90 / 90 40 / 40 Weight 48.3 kg 49.8 kg Intake: IV 100 / 100 250 / 250 100 / 100 Protonix Inj 80 MG In NS Inj 100 / 100 100 ML @ 10 mls/hr IV.CONT CONT [facility] Rx#:[id number] KCl 20 mEq Premix Inj 20 meq In 100 / 100 100 ml @ 50 mls/hr IV.SIG DAILY@2145 [facility] Rx#:[id number] NS Inj 250 ML @ 15 mls/hr IV. 250 / 250 SIG ONCE [facility] Rx#:[id number] Oral 480 / 480 240 / 240 240 / 240 Intake (Blood Product) Amt 800 / 800 Rbc As-3 Leukoreduced Unit 400 / 400 [id number] Rbc As-3 Leukoreduced Unit 400 / 400 [id number] Output: Urine 400 / 400 300 / 300 300 / 300 Emesis 100 / 100 Results 01/07/18 06:16 01/07/18 06:16 Coagulation 01/06/18 01/06/18 Range/Units 10:03 17:18 APTT 46.6 H 48.3 H (24.3-30.1) sec CBC 01/06/18 01/07/18 Range/Units 17:18 06:16 WBC 7.9 11.7 H (4.0-11.0) th/mm3 RBC 2.22 L 3.79 L (4.00-5.30) mil/mm3 Hgb 7.3 L D 11.6 D (11.6-15.3) gm/dL Hct 21.1 L 33.3 L (35.0-46.0) % Plt Count 336 314 (150-450) th/mm3 Neut # (Auto) 5.4 (1.8-7.7) th/mm3 Lymph # (Auto) 2.0 (1.0-4.8) th/mm3 [place] # (Auto) 0.4 (0.0-0.9) th/mm3 Eos # (Auto) 0.0 (0.0-0.4) th/mm3 Baso # (Auto) 0.1 (0.0-0.2) th/mm3 Comprehensive Metabolic Panel 01/06/18 01/06/18 01/07/18 Range/Units 10:03 20:13 06:16 Sodium 137 139 (136-145) meq/L Potassium 3.0 L 2.9 L* 3.4 L (3.5-5.1) meq/L Chloride 102 99 (98-107) meq/L Carbon Dioxide 28.0 28.9 (21.0-32.0) meq/L BUN 51 H 39 H (7-18) mg/dL Creatinine 1.46 H 1.23 H (0.50-1.00) mg/dL Calcium 7.6 L D 8.2 L (8.5-10.1) mg/dL Intake and Output 01/07/18 01/07/18 01/08/18 14:59 22:59 06:59 Intake Total 250 / 250 240 / 240 340 / 340 Output Total 100 / 100 300 / 300 300 / 300 Balance 150 / 150 -60 / -60 40 / 40 Intake: IV 250 / 250 100 / 100 Protonix Inj 80 MG In NS Inj 100 / 100 100 ML @ 10 mls/hr IV.CONT CONT [facility] Rx#:[id number] NS Inj 250 ML @ 15 mls/hr IV. 250 / 250 SIG ONCE [facility] Rx#:[id number] Oral 240 / 240 240 / 240 Output: Urine 300 / 300 300 / 300 Emesis 100 / 100 Other: Weight 49.8 kg Patient Weight 01/08/18 06:59 Weight 49.8 kg Assessment and Plan - Plan Syncope- vasovagal mediated. prior history of GI bleed. Current GI workup planned. New Onset Systolic HF EF 35-40%- -started low dose metoprol, plan to uptitrate as tolerated. -Lexiscan can be completed as an outpatient. GI bleed- ok from cardiology standpoint to proceed with GI workup. NSTEMI- 2/2 to GI bleed. troponin very mildly elevated. can perform stress test as outpatient.
[2018-01-08 07:04] LABS: Hematocrit 27.6 % (35.0-46.0); Hemoglobin 9.5 gm/dL (11.6-15.3); Mean Corpuscular HGB Conc 34.5 % (32.0-36.0); Mean Corpuscular Hemoglobin 30.9 pg (27.0-34.0); Mean Corpuscular Volume 89.5 fL (80.0-100.0); Mean Platelet Volume 8.3 fL (7.0-11.0); Platelet Count 274 th/mm3 (150-450); Red Blood Count 3.08 mil/mm3 (4.00-5.30); Red Cell Distribution Width 19.1 % (11.6-17.2)
[2018-01-08 07:30] LABS: Calcium 7.4 mg/dL (8.5-10.1); Carbon Dioxide 21.8 meq/L (21.0-32.0)
--- NOTE | 2018-01-08 08:00 | MB ---
cc: Erica Matt MD DATE: 01/05/2018 CHIEF COMPLAINT: Syncope. HISTORY OF PRESENT ILLNESS: Ms. Erendira Leggett is a 77-year-old female who is a relatively poor historian. She has got a past medical history of dementia, gastric ulcer, generalized anxiety disorder, who presented to the emergency room after a syncopal episode. Majority of the history was obtained by her brother who reports that she has been having generalized weakness and fall over the past few weeks. Most recently, she was admitted for a GI bleed. This time, the patient's brother reports that she was in the bathroom and suddenly he heard a loud thump and the patient had syncopized while on the toilet. According to the brother, she has had poor appetite and she notes that she has dysphagia. Denies any chest pain or shortness of breath. When she arrived to the emergency room, she had a mildly elevated troponin at 0.08. Her EKG showed sinus tachycardia and some mild ST-T changes. It is of note that she does not have a known history of cardiac disease or any true risk factors aside from her age for coronary events. Echocardiogram, carotid ultrasound, brain MRI workup pending. REVIEW OF SYSTEMS: Unable to obtain truly from the patient given her dementia. PAST MEDICAL HISTORY: 1. She has a history of gastric ulcer with gastrointestinal bleed. 2. Dementia. 3. Anxiety. SOCIAL HISTORY: Nonsmoker. FAMILY HISTORY: No sudden cardiac . MEDICATIONS: 1. Namenda 5 mg p.o. b.i.d. 2. Pantoprazole 40 mg b.i.d. 3. Mirtazapine 7.5 mg daily. PHYSICAL EXAMINATION: VITAL SIGNS: Blood pressure 117/59, heart rate 94. GENERAL: No acute distress, thin, elderly, frail lady. HEENT: Eyes, no scleral icterus. Oropharynx: Moist mucous membranes. CARDIOVASCULAR: Regular rate and rhythm. Normal S1, S2. LUNGS: Clear to auscultation. ABDOMEN: Soft, nontender, nondistended. EXTREMITIES: No significant edema. NEUROLOGIC: No focal deficits. She is alert to herself and to the place, but not to time. PSYCHIATRIC: Appears to have poor insight. ASSESSMENT AND PLAN: 1. Syncope. Unclear etiology at this point. Factors would point towards a vasovagal etiology according to the brother as she was on the toilet while this occurred. She has been having poor p.o. intake, causing her to become dehydrated. Transthoracic echocardiogram, carotid ultrasound, and MRI workup pending. 2. Likely type 2 non-ST elevation myocardial infarction. This could be in the context of tachycardia. She does not appear to be overtly anemic. She has been started on heparin drip. We will continue to monitor her CBC, see where the troponins trend. If there is significant elevation in the troponins, I would likely proceed with medical management. A transthoracic echocardiogram will help us solve if there are any wall motion abnormalities. Thank you for allowing me to participate in the care of Ms. Erendira Leggett and continue to follow along. MD CARLOS Piña/sv/jose luis , 07:22 AM , 07:34 AM
[2018-01-08 08:08] LABS: Total Protein 4.6 g/dL (6.4-8.2)
[2018-01-08] MEDS: Metoprolol Tartrate 25 MG Tablet PO SCH ×2 (08:18→20:48)
--- NOTE | 2018-01-08 09:36 | P.PN ---
Subjective Interval history: Patient doing well overnight, no syncopal episodes. She reports that she is ready to go home, and would like to know when that is going to happen. Emesis x1 this AM, patient voiding well. No overnight events per RN. Physical Exam Vital signs: Vital Signs 01/07/18 12:00 01/07/18 16:00 01/07/18 20:00 Temperature 98.2 F 98.1 F 99.4 F Pulse Rate 79 91 H 83 Respiratory Rate 20 20 13 Blood Pressure 107/60 119/73 114/65 Pulse Oximetry 97 99 99 01/08/18 00:00 01/08/18 04:00 Temperature 99 F 99 F Pulse Rate 80 78 Respiratory Rate 17 23 Blood Pressure 111/70 116/70 Pulse Oximetry 98 100 Intake & Output 01/07/18 01/08/18 01/08/18 18:59 06:59 18:59 Intake Total 490 / 490 340 / 340 Output Total 400 / 400 300 / 300 Balance 90 / 90 40 / 40 Weight 49.8 kg Intake: IV 250 / 250 100 / 100 Protonix Inj 80 MG In NS Inj 100 / 100 100 ML @ 10 mls/hr IV.CONT CONT [facility] Rx#:[id number] NS Inj 250 ML @ 15 mls/hr IV. 250 / 250 SIG ONCE [facility] Rx#:[id number] Oral 240 / 240 240 / 240 Output: Urine 300 / 300 300 / 300 Emesis 100 / 100 Narrative: GENERAL: Well-nourished female, in no acute distress, lying comfortably in bed SKIN: Warm and dry. HEENT: Normocephalic. No scleral icterus. No injection or drainage. PERRLA, MOM NECK: Supple, trachea midline. No JVD or lymphadenopathy. CARDIOVASCULAR: Regular rate and rhythm without murmurs, gallops, or rubs. RESPIRATORY: Breath sounds equal bilaterally. No accessory muscle use. GASTROINTESTINAL: Abdomen soft, non-tender, nondistended. Negative rebound MUSCULOSKELETAL: No cyanosis, or edema. BACK: Nontender without obvious deformity. No CVA tenderness. NEURO: AAO x3, no focal deficits Results - Labs CBC & Chem 7: 01/08/18 06:16 01/08/18 06:16 Laboratory Results - last 24 hr 01/08/18 01/08/18 06:16 06:16 WBC 8.0 RBC 3.08 L Hgb 9.5 L D Hct 27.6 L MCV 89.5 MCH 30.9 MCHC 34.5 RDW 19.1 H Plt Count 274 MPV 8.3 Sodium 137 Potassium 4.0 Chloride 106 Carbon Dioxide 21.8 Anion Gap 9 BUN 38 H Creatinine 0.88 Estimated GFR 62 L Random Glucose 82 Calcium 7.4 L* D Prot Corrected Calcium 8.8 Total Protein 4.6 L D Microbiology 01/05/18 11:11 Blood - Peripheral Aerobic Blood Culture - Preliminary No growth in 2 days 01/05/18 11:11 Blood - Peripheral Anaerobic Blood Culture - Preliminary No growth in 2 days 01/05/18 11:01 Blood - Peripheral Aerobic Blood Culture - Preliminary No growth in 2 days 01/05/18 11:01 Blood - Peripheral Anaerobic Blood Culture - Preliminary No growth in 2 days Assessment and Plan - Assessment (1) Non-ST elevation [place] (NSTEMI) Code(s): I21.4 - Non-ST elevation (NSTEMI) myocardial infarction Status: Acute (2) Syncope and collapse Code(s): R55 - Syncope and collapse Status: Acute (3) GI bleed Code(s): K92.2 - Gastrointestinal hemorrhage, unspecified Status: Acute - Plan This is a 77-year-old CF with PMHx of Gastric ulcers and upper GI bleed approximately 2 months ago admitted for inpatient management of NSTEMI secondary to upper GI bleed and dysphagia, cardiology and GI assisting with management HD #4 1. Syncopal Episode, Vasovagal Cardiology consulted, syncope vasovagal per their notes ECHO with 35-40%, otherwise WNL Carotid US was Negative on right, refused left side MRI of brain showed no acute process Per Cardiology Recc on 01/08: Syncope- vasovagal mediated. prior history of GI bleed. Current GI workup planned. New Onset Systolic HF EF 35-40%- -started low dose metoprol, plan to uptitrate as tolerated. -Lexiscan can be completed as an outpatient. GI bleed- ok from cardiology standpoint to proceed with GI workup. NSTEMI- 2/2 to GI bleed. troponin very mildly elevated. can perform stress test as outpatient. 2 .NSTEMI/CHF NSTEMI secondary to GI bleed Per cardiology's note Elevated troponin with EKG changes EF of 35-40% in otherwise normal appearing heart may indicate ischemic dysfunction Per cardiology plan for Lexiscan as outpatient Continue Metoprolol started by them Appreciate cardiology's assistance with management 3. Gastric ulcers/Upper GI Bleed Anemia s/p txt 2 months ago for multiple gastric ulcers which were causing upper GI bleed EGD was performed and no mention of dysphagia secondary to stricture was noted Patient compliance with Protonix at home is questionable, given active GI bleed on heparin it is likely her ulcers are still present Patient s/p 2U pRBC's for Hgb 7.3, Hgb 11.6 post transfusion on 01/07, Hgb 9.5 today Appreciate GIs assistance with management Continue PPI drip Follow CBC in AM As cardiology is now recommending stress test as an outpatient, will await if GI recommends EGD due to continued anemia Per GI Reccs 01/07: Diet, cardiac as tolerated monitor for any choking episodes Consider EGD , stress test pending, will need to clear with cardiology Serial hemoglobin hematocrit every 6 hours to monitor hemoglobin Protonix drip initiated note heparin drip has been DC'd Monitor labs Further recommendations to follow 4. Anorexia Decreased appetite for the last few months, likely due to dementia Started on Marinol, will continue Speech therapy performed swallow eval, no abnormalities 5. Hx of Dementia/Depression Cont. home Namenda and Mirtazepine 6. DVT prophylaxis: SCD's 7. Dispo: Pending GI recommendations for possible EGD, per cardiology will have stress test as an outpatient. Code Status: full Discussed Condition With: NAHED
[2018-01-08] MEDS: DRONABINOL 2.5 MG CAPSULE PO SCH ×2 (10:26→20:48)
[2018-01-08] MEDS: Mirtazapine 15 MG Tablet PO SCH (10:27)
--- NOTE | 2018-01-08 15:41 | P.PNGI ---
Subjective Interval history: Patient is awake, appears to be feeling somewhat better, poor historian but denies any chest pain shortness of breath or abdominal pain no nausea vomiting diarrhea <Ruba Uribe - Last Filed: 01/08/18 15:37> Physical Exam Vital signs: Vital Signs 01/07/18 16:00 01/07/18 20:00 01/08/18 00:00 Temperature 98.1 F 99.4 F 99 F Pulse Rate 91 H 83 80 Respiratory Rate 20 13 17 Blood Pressure 119/73 114/65 111/70 Pulse Oximetry 99 99 98 01/08/18 04:00 01/08/18 09:00 Temperature 99 F Pulse Rate 78 81 Respiratory Rate 23 Blood Pressure 116/70 Pulse Oximetry 100 Intake & Output 01/07/18 01/08/18 01/08/18 18:59 06:59 18:59 Intake Total 490 / 490 340 / 340 100 / 100 Output Total 400 / 400 300 / 300 Balance 90 / 90 40 / 40 100 / 100 Weight 49.8 kg Intake: IV 250 / 250 100 / 100 100 / 100 Protonix Inj 80 MG In NS Inj 100 / 100 100 / 100 100 ML @ 10 mls/hr IV.CONT CONT [facility] Rx#:[id number] NS Inj 250 ML @ 15 mls/hr IV. 250 / 250 SIG ONCE [facility] Rx#:[id number] Oral 240 / 240 240 / 240 Output: Urine 300 / 300 300 / 300 Emesis 100 / 100 - Constitutional no acute distress, chronically ill appearing, disheveled, cooperative - Routine HEENT Exam Head: Present: normocephalic ENT: Present: mucous membranes dry - Routine Respiratory Exam Present: accessory muscle use (Even, unlabored at rest) - Routine Cardiovascular Exam Present: S1, S2 - Routine Abdominal Exam Present: soft, normoactive bowel sounds (No obvious bleeding) <Ruba Uribe - Last Filed: 01/08/18 15:37> Vital signs: Vital Signs 01/08/18 00:00 01/08/18 04:00 01/08/18 08:00 Temperature 99 F 99 F 98.6 F Pulse Rate 80 78 86 Respiratory Rate 17 23 20 Blood Pressure 111/70 116/70 114/65 Pulse Oximetry 98 100 98 01/08/18 09:00 01/08/18 12:00 01/08/18 16:00 Temperature 98.5 F 98.6 F Pulse Rate 81 84 79 Respiratory Rate 21 20 Blood Pressure 107/67 115/65 Pulse Oximetry 99 99 Intake & Output 01/08/18 01/08/18 01/09/18 06:59 18:59 06:59 Intake Total 340 / 340 640 / 640 Output Total 300 / 300 Balance 40 / 40 640 / 640 Weight 49.8 kg Intake: IV 100 / 100 160 / 160 Protonix Inj 80 MG In NS Inj 100 / 100 160 / 160 100 ML @ 10 mls/hr IV.CONT CONT [facility] Rx#:[id number] Oral 240 / 240 480 / 480 Output: Urine 300 / 300 Other: # Voids 4 Date of Last Bowel Movement 01/08/18 # Bowel Movements 1 <Shawn Zaldivar - Last Filed: 01/08/18 20:47> Results - Labs CBC & Chem 7: 01/08/18 06:16 01/08/18 06:16 Laboratory Results - last 24 hr 01/08/18 01/08/18 06:16 06:16 WBC 8.0 RBC 3.08 L Hgb 9.5 L D Hct 27.6 L MCV 89.5 MCH 30.9 MCHC 34.5 RDW 19.1 H Plt Count 274 MPV 8.3 Sodium 137 Potassium 4.0 Chloride 106 Carbon Dioxide 21.8 Anion Gap 9 BUN 38 H Creatinine 0.88 Estimated GFR 62 L Random Glucose 82 Calcium 7.4 L* D Prot Corrected Calcium 8.8 Total Protein 4.6 L D Microbiology 01/05/18 11:11 Blood - Peripheral Aerobic Blood Culture - Preliminary No growth in 3 days 01/05/18 11:11 Blood - Peripheral Anaerobic Blood Culture - Preliminary No growth in 3 days 01/05/18 11:01 Blood - Peripheral Aerobic Blood Culture - Preliminary No growth in 3 days 01/05/18 11:01 Blood - Peripheral Anaerobic Blood Culture - Preliminary No growth in 3 days <Ruba Uribe - Last Filed: 01/08/18 15:37> - Labs CBC & Chem 7: 01/08/18 06:16 01/08/18 06:16 Laboratory Results - last 24 hr 01/08/18 01/08/18 06:16 06:16 WBC 8.0 RBC 3.08 L Hgb 9.5 L D Hct 27.6 L MCV 89.5 MCH 30.9 MCHC 34.5 RDW 19.1 H Plt Count 274 MPV 8.3 Sodium 137 Potassium 4.0 Chloride 106 Carbon Dioxide 21.8 Anion Gap 9 BUN 38 H Creatinine 0.88 Estimated GFR 62 L Random Glucose 82 Calcium 7.4 L* D Prot Corrected Calcium 8.8 Total Protein 4.6 L D Microbiology 01/05/18 11:11 Blood - Peripheral Aerobic Blood Culture - Preliminary No growth in 3 days 01/05/18 11:11 Blood - Peripheral Anaerobic Blood Culture - Preliminary No growth in 3 days 01/05/18 11:01 Blood - Peripheral Aerobic Blood Culture - Preliminary No growth in 3 days 01/05/18 11:01 Blood - Peripheral Anaerobic Blood Culture - Preliminary No growth in 3 days <Shawn Zaldivar - Last Filed: 01/08/18 20:47> Assessment and Plan - Plan 77-year-old female who presented to the emergency room on 01/05/2018 with a syncopal episode at home. Initially she was evaluated for some cardiac concerns and causes and was placed on heparin. Also has history of GI bleed approximately 2 months ago with EGD done on 11/16/2017 showing 2 large ulcers one in the duodenal bulb and the other in the gastric antrum, and hiatal hernia. It is questionable whether she is been taking her medications are not currently she denies any vomiting abdominal pain or dyspepsia but does note occasional dysphasia and some nausea if the food feels it is sticking in the esophagus. Gastroenterology was consulted to assist in her care and to monitor for any acute GI bleeding as well as her recent history of multiple ulcers. Currently patient has no fever, some baseline dementia and poor historian. Looks as if cardiology is planning stress test, so workup needs to be complete and cleared with cardiology before further EGD is done History of large duodenal ulcers and gastric ulcers, last EGD done on 11/16/2017 patient placed on PPI but consider with her baseline dementia whether she was taken medication History of syncopal episode Decreased appetite over the past 2 months, also having some symptoms of dysphasia and feeling food gets stuck worsening over the past few weeks History of alcohol use and class D esophagitis which could be related to her dysphasia symptoms, according to old records 01/08/2018 current hemoglobin 9.5 normal WBC count. Patient was seen per cardiology today and was okayed from his standpoint for further GI testing felt like syncopal episode was vasovagal in nature. Cardiac diet ordered. Patient plan is to have Lexiscan as outpatient. Explained plan of care to patient and plan for follow-up EGD to review patient's history of large ulcers and her treatment regimen states she has been taking her meds at home as prescribed Plan Diet, cardiac Consent for EGD in a.m. N.p.o. at midnight PPI Bowel regimen as needed Monitor labs Further recommendations to follow after EGD in am Patient was seen per myself and Dr. Zaldivar, note was written on his back <Ruba Uribe M - Last Filed: 01/08/18 15:37> - Plan Patient seen and examined Agree with above history and physical Continue with current supportive care Monitor labs Plan on an EGD tomorrow <Shawn Zaldivar E - Last Filed: 01/08/18 20:47>
[2018-01-09] MEDS: Chlorhexidine Gluconate 2% 1 Pack (2 Cloths) TOPICAL SCH (03:26)
[2018-01-09 07:01] LABS: Baso % (Auto) 0.3 % (0.0-2.0); Eos # (Auto) 0.3 th/mm3 (0.0-0.4); Eos % (Auto) 4.4 % (0.0-4.0); Hematocrit 28.9 % (35.0-46.0); Lymph % (Auto) 16.7 % (9.0-44.0); Mean Corpuscular HGB Conc 34.4 % (32.0-36.0); Mean Corpuscular Hemoglobin 30.6 pg (27.0-34.0); Mean Platelet Volume 7.9 fL (7.0-11.0); Mono # (Auto) 0.4 th/mm3 (0.0-0.9); Mono % (Auto) 6.1 % (0.0-8.0); Neut # (Auto) 4.4 th/mm3 (1.8-7.7); Neut % (Auto) 72.5 % (16.0-70.0); Platelet Count 289 th/mm3 (150-450); Red Blood Count 3.25 mil/mm3 (4.00-5.30); Red Cell Distribution Width 18.9 % (11.6-17.2)
[2018-01-09 07:29] LABS: Alanine Aminotransferase 19 U/L (10-53); Albumin 1.9 g/dL (3.4-5.0); Alkaline Phosphatase 54 U/L (45-117); Anion Gap 10 meq/L (5-15); Aspartate Aminotransferase 19 U/L (15-37); Blood Urea Nitrogen 25 mg/dL (7-18); Calcium 8.2 mg/dL (8.5-10.1); Carbon Dioxide 22.5 meq/L (21.0-32.0); Chloride 106 meq/L (98-107); Glomerular Filtration Rate 53 mL/min (>89); Glucose,Random 73 mg/dL (74-106); Potassium 3.9 meq/L (3.5-5.1); Sodium 138 meq/L (136-145); Total Protein 5.2 g/dL (6.4-8.2)
[2018-01-09 08:39] LABS: Acanthocytes Occ; Platelet Estimate Normal (Normal); Platelet Morphology Normal (Normal)
[2018-01-09] MEDS: Metoprolol Tartrate 25 MG Tablet PO SCH (08:50)
[2018-01-09] MEDS: Mirtazapine 15 MG Tablet PO SCH (08:50)
--- NOTE | 2018-01-09 08:56 | P.PN ---
Subjective Interval history: Patient doing well, NPO since [place], no concerns. No overnight events per RN. Physical Exam Vital signs: Vital Signs 01/08/18 09:00 01/08/18 12:00 01/08/18 16:00 Temperature 98.5 F 98.6 F Pulse Rate 81 84 79 Respiratory Rate 21 20 Blood Pressure 107/67 115/65 Pulse Oximetry 99 99 01/08/18 20:00 01/09/18 00:00 01/09/18 04:00 Temperature 98 F 97.4 F L 98.2 F Pulse Rate 83 66 67 Respiratory Rate 12 13 16 Blood Pressure 108/66 96/57 L 100/66 Pulse Oximetry 99 100 100 Intake & Output 01/08/18 01/09/18 01/09/18 18:59 06:59 18:59 Intake Total 640 / 640 240 / 240 Output Total 500 / 500 Balance 640 / 640 -260 / -260 Weight 49 kg Intake: IV 160 / 160 Protonix Inj 80 MG In NS Inj 160 / 160 100 ML @ 10 mls/hr IV.CONT CONT [place] Rx#:[id number] Oral 480 / 480 240 / 240 Output: Urine 500 / 500 Other: # Voids 4 Date of Last Bowel Movement 01/08/18 # Bowel Movements 1 Narrative: GENERAL: Well-nourished female, in no acute distress, lying comfortably in bed SKIN: Warm and dry. HEENT: Normocephalic. No scleral icterus. No injection or drainage. PERRLA, MOM NECK: Supple, trachea midline. No JVD or lymphadenopathy. CARDIOVASCULAR: Regular rate and rhythm without murmurs, gallops, or rubs. RESPIRATORY: Breath sounds equal bilaterally. No accessory muscle use. GASTROINTESTINAL: Abdomen soft, non-tender, nondistended. Negative rebound MUSCULOSKELETAL: No cyanosis, or edema. BACK: Nontender without obvious deformity. No CVA tenderness. NEURO: AAO x3, no focal deficits Results - Labs CBC & Chem 7: 01/09/18 05:51 01/09/18 05:51 Laboratory Results - last 24 hr 01/09/18 01/09/18 05:51 05:51 WBC 6.0 RBC 3.25 L Hgb 10.0 L Hct 28.9 L MCV 89.0 MCH 30.6 MCHC 34.4 RDW 18.9 H Plt Count 289 MPV 7.9 Prelim Diff (Auto) Slide review pending Neut % (Auto) 72.5 H Lymph % (Auto) 16.7 [place] % (Auto) 6.1 Eos % (Auto) 4.4 H Baso % (Auto) 0.3 Neut # (Auto) 4.4 Lymph # (Auto) 1.0 [place] # (Auto) 0.4 Eos # (Auto) 0.3 Baso # (Auto) 0.0 WBC Differential . Diff Scan Auto diff confirmed Differential Comment . Platelet Estimate Normal Platelet Morphology Normal Acanthocytes (Spur) Occ H Keratocytes Occ H Sodium 138 Potassium 3.9 Chloride 106 Carbon Dioxide 22.5 Anion Gap 10 BUN 25 H Creatinine 1.00 Estimated GFR 53 L Random Glucose 73 L Calcium 8.2 L D Total Bilirubin 0.6 AST 19 ALT 19 Alkaline Phosphatase 54 Total Protein 5.2 L D Albumin 1.9 L Microbiology 01/05/18 11:11 Blood - Peripheral Aerobic Blood Culture - Preliminary No growth in 3 days 01/05/18 11:11 Blood - Peripheral Anaerobic Blood Culture - Preliminary No growth in 3 days 01/05/18 11:01 Blood - Peripheral Aerobic Blood Culture - Preliminary No growth in 3 days 01/05/18 11:01 Blood - Peripheral Anaerobic Blood Culture - Preliminary No growth in 3 days Assessment and Plan - Assessment (1) Non-ST elevation [place] (NSTEMI) Code(s): I21.4 - Non-ST elevation (NSTEMI) myocardial infarction Status: Acute (2) Syncope and collapse Code(s): R55 - Syncope and collapse Status: Acute (3) GI bleed Code(s): K92.2 - Gastrointestinal hemorrhage, unspecified Status: Acute - Plan This is a 77-year-old CF with PMHx of Gastric ulcers and upper GI bleed approximately 2 months ago admitted for inpatient management of NSTEMI secondary to upper GI bleed and dysphagia, cardiology and GI assisting with management HD #5 1. Syncopal Episodex1, Vasovagal No further syncope since admission Cardiology consulted, syncope vasovagal per their notes ECHO with 35-40%, otherwise WNL Carotid US was Negative on right, refused left side MRI of brain showed no acute process 2 .NSTEMI/CHF NSTEMI secondary to GI bleed Per cardiology's note Elevated troponin with EKG changes EF of 35-40% in otherwise normal appearing heart may indicate ischemic dysfunction Per cardiology plan for Lexiscan as outpatient Continue Metoprolol started by them Appreciate cardiology's assistance with management Per Cardiology Recc on 01/08: Syncope- vasovagal mediated. prior history of GI bleed. Current GI workup planned. New Onset Systolic HF EF 35-40%- -started low dose metoprol, plan to uptitrate as tolerated. -Lexiscan can be completed as an outpatient. GI bleed- ok from cardiology standpoint to proceed with GI workup. NSTEMI- 2/2 to GI bleed. troponin very mildly elevated. can perform stress test as outpatient. 3. Gastric ulcers/Upper GI Bleed Anemia s/p txt 2 months ago for multiple gastric ulcers which were causing upper GI bleed EGD was performed and no mention of dysphagia secondary to stricture was noted Patient compliance with Protonix at home is questionable, given active GI bleed on heparin it is likely her ulcers are still present Patient s/p 2U pRBC's for Hgb 7.3, Hgb 11.6 post transfusion on 01/07, Hgb 10 today Appreciate GI's assistance with management Continue PPI Follow CBC in AM EGD this AM per GI Per GI Reccs 01/08: Diet, cardiac Consent for EGD in a.m. N.p.o. at midnight PPI Bowel regimen as needed Monitor labs Further recommendations to follow after EGD in am 4. Anorexia Decreased appetite for the last few months, likely due to dementia Cont. Marinol, will continue Speech therapy performed swallow eval, no abnormalities 5. Hx of Dementia/Depression Cont. home Namenda and Mirtazepine 6. DVT prophylaxis: SCD's 7. Dispo: F/U GI recommendations, EGD today, per cardiology will have stress test as an outpatient. Code Status: full Discussed Condition With: patient, RN, I called her nephew yesterday per his request with no answer, voicemail left to call back for information
[2018-01-09] MEDS: DRONABINOL 2.5 MG CAPSULE PO SCH (10:23)
[2018-01-09] MEDS ORDERED: Diatrizoate Meglum/Diatrizoate Sod Liq 120 ML Bottle (for RAD diag) PO ONE (12:38)
[2018-01-09] MEDS ORDERED: Lidocaine PF 1% Inj 5 ML Syringe OTHER ONE (13:12)
--- NOTE | 2018-01-09 13:35 | P.PCN ---
Date of procedure: 01/09/18 Pre-op diagnosis: Dysphagia, anemia Procedure: PROCEDURE PERFORMED EGD with biopsies PROCEDURE: The procedure, risks and benefits were discussed with Patient/POA and informed consent was obtained. Anesthesia sedated Patient with Diprivan. Patient was placed in the left lateral decubitus position. EGD: The Pentax videoscope was introduced through the oropharynx and advanced to the second portion of the duodenum under direct visualization. Retroflexion was performed in the stomach. FINDINGS: The esophagus the entire esophagus mucosa was friable and erythemic multiple biopsies were taken The stomach there was a small hiatal hernia there was food residue noted in the stomach the pylorus was shut down I was unable to pass the scope into the duodenum it appeared to be slightly irregular and friable etiology unclear biopsies were taken from the pylorus The duodenum I was unable to intubate the duodenum ESTIMATED BLOOD LOSS: None SPECIMENS REMOVED: Esophageal and pyloric biopsies COMPLICATIONS: None IMPRESSION: Severe esophagitis Pyloric stenosis appears to be severe Food residue in the stomach due to pyloric stenosis PLAN: Await biopsies Continue PPI Only clear liquids for now We will obtain a Gastrografin upper GI series so is to evaluate the pyloric and post pyloric region Most likely will need to do an EGD with pyloric dilation once the above test has been completed Anesthesia: MAC Surgeon: Shawn Zaldivar Condition: stable Disposition: floor
--- NOTE | 2018-01-09 16:31 | FL ---
EXAM DATE: 01/09/2018 12:00 AM EDT AGE/SEX: 77 years / Female INDICATIONS: Pyloric stenosis etiology unclear. CLINICAL DATA: This is the patient's subsequent encounter. Patient reports that signs and symptoms h ave been present for 4 - 6 days and indicates a pain score of 0/10. MEDICAL/SURGICAL HISTORY: . GI bleed. None. COMPARISON: No prior exams available for comparison. FLUORO TIME: 6.3 IMAGE COUNT: 13 FINDINGS: The esophagus is grossly unremarkable. The stomach is poorly evaluated with water-soluble contrast bu t is grossly unremarkable to the level of the pylorus. The pyloric channel and proximal duodenum are notable for luminal narrowing and mucosal thickening and possible mucosal ulceration with very limite d passage of contrast through this region. The mid to distal duodenum are unremarkable and the visual ized small bowel is normal in caliber with contrast rapidly propagating through the remainder of the bowel. CONCLUSION: Abnormal luminal narrowing with mucosal fold thickening and irregularity and possible ulceration in t he pylorus and proximal duodenum Electronically signed by: Juan J Cohen MD 01/09/2018 4:30 PM EDT
[2018-01-10] MEDS: Metoprolol Tartrate 25 MG Tablet PO SCH ×3 (01:02→21:40)
[2018-01-10] MEDS: DRONABINOL 2.5 MG CAPSULE PO SCH ×3 (02:17→21:40)
[2018-01-10] MEDS: Chlorhexidine Gluconate 2% 1 Pack (2 Cloths) TOPICAL SCH (04:18)
[2018-01-10] MEDS: Mirtazapine 15 MG Tablet PO SCH (09:09)
[2018-01-10 10:43] LABS: Baso % (Auto) 0.3 % (0.0-2.0); Eos # (Auto) 0.2 th/mm3 (0.0-0.4); Eos % (Auto) 3.3 % (0.0-4.0); Hematocrit 33.6 % (35.0-46.0); Hemoglobin 11.2 gm/dL (11.6-15.3); Lymph # (Auto) 0.9 th/mm3 (1.0-4.8); Lymph % (Auto) 15.9 % (9.0-44.0); Mean Corpuscular HGB Conc 33.3 % (32.0-36.0); Mean Corpuscular Hemoglobin 30.3 pg (27.0-34.0); Mean Corpuscular Volume 90.9 fL (80.0-100.0); Mean Platelet Volume 7.5 fL (7.0-11.0); Mono # (Auto) 0.3 th/mm3 (0.0-0.9); Mono % (Auto) 5.5 % (0.0-8.0); Platelet Count 333 th/mm3 (150-450); Red Cell Distribution Width 18.7 % (11.6-17.2); White Blood Count 5.3 th/mm3 (4.0-11.0)
[2018-01-10 11:09] LABS: Alanine Aminotransferase 23 U/L (10-53); Albumin 2.3 g/dL (3.4-5.0); Anion Gap 10 meq/L (5-15); Aspartate Aminotransferase 20 U/L (15-37); Blood Urea Nitrogen 18 mg/dL (7-18); Calcium 8.6 mg/dL (8.5-10.1); Carbon Dioxide 23.9 meq/L (21.0-32.0); Chloride 108 meq/L (98-107); Glomerular Filtration Rate 61 mL/min (>89); Glucose,Random 79 mg/dL (74-106); Potassium 4.1 meq/L (3.5-5.1); Sodium 142 meq/L (136-145)
[2018-01-10 11:13] LABS: Alkaline Phosphatase 58 U/L (45-117); Prealbumin 9 mg/dL (20-40); Total Protein 5.7 g/dL (6.4-8.2)
[2018-01-10 11:26] LABS: Eosinophils 3 % (0-4); Lymphocytes 17 % (9-44); Monocytes 1 % (0-8); Platelet Estimate Normal (Normal); Platelet Morphology Normal (Normal); RBC Morphology Normal (Normal)
--- NOTE | 2018-01-10 15:40 | P.PN ---
Subjective Interval history: Nursing denies any deterioration since last night. Patient herself thinks that she is in a days and she does not remember the procedure she had earlier this morning which was a EGD which showed findings suspicious for pyloric stenosis. Patient tolerating clear liquids otherwise for now. Physical Exam Vital signs: Vital Signs 01/09/18 17:47 01/09/18 20:00 01/10/18 00:00 Temperature 97.1 F L 98.2 F 97.6 F Pulse Rate 83 65 85 Respiratory Rate 16 19 18 Blood Pressure 136/72 118/68 121/67 Pulse Oximetry 100 98 97 01/10/18 04:00 01/10/18 08:00 01/10/18 12:00 Temperature 97.4 F L 97 F L 97.2 F L Pulse Rate 64 72 75 Respiratory Rate 16 16 18 Blood Pressure 113/65 144/89 H 127/83 Pulse Oximetry 95 100 100 Intake & Output 01/09/18 01/10/18 01/10/18 18:59 06:59 18:59 Intake Total 200 / 200 240 / 240 Output Total 400 / 400 Balance 200 / 200 -160 / -160 Weight 49 kg 48.7 kg Intake: Oral 240 / 240 Anesthesia Amount 200 / 200 Output: Urine 400 / 400 Other: # Incontinent Voids 2 Date of Last Bowel Movement 01/08/18 # Incontinent Bowel Movements 2 Narrative: Abdomen is soft nontender Clear lungs bilaterally, unlabored breathing Awake and alert Results - Labs CBC & Chem 7: 01/10/18 10:20 01/10/18 10:20 Laboratory Results - last 24 hr 01/10/18 01/10/18 10:20 10:20 WBC 5.3 RBC 3.70 L Hgb 11.2 L Hct 33.6 L MCV 90.9 MCH 30.3 MCHC 33.3 RDW 18.7 H Plt Count 333 MPV 7.5 Prelim Diff (Auto) Slide review pending Neut % (Auto) 75.0 H Lymph % (Auto) 15.9 [place] % (Auto) 5.5 Eos % (Auto) 3.3 Baso % (Auto) 0.3 Neut # (Auto) 4.0 Lymph # (Auto) 0.9 L [place] # (Auto) 0.3 Eos # (Auto) 0.2 Baso # (Auto) 0.0 WBC Differential Manual diff final Seg Neuts % (Manual) 79 H Lymphocytes % (Manual) 17 Monocytes % (Manual) 1 Eosinophils % (Manual) 3 Abs Neuts (Manual) 4.2 Differential Comment . Platelet Estimate Normal Platelet Morphology Normal RBC Morphology Normal Sodium 142 Potassium 4.1 Chloride 108 H Carbon Dioxide 23.9 Anion Gap 10 BUN 18 Creatinine 0.89 Estimated GFR 61 L Random Glucose 79 Calcium 8.6 Total Bilirubin 0.4 AST 20 ALT 23 Alkaline Phosphatase 58 Total Protein 5.7 L Albumin 2.3 L Prealbumin 9 L Microbiology 01/05/18 11:11 Blood - Peripheral Aerobic Blood Culture - Final No growth in 5 days 01/05/18 11:11 Blood - Peripheral Anaerobic Blood Culture - Final No growth in 5 days 01/05/18 11:01 Blood - Peripheral Aerobic Blood Culture - Final No growth in 5 days 01/05/18 11:01 Blood - Peripheral Anaerobic Blood Culture - Final No growth in 5 days - Imaging Impressions Gastrografin Study 01/09/18 00:00 CONCLUSION: Abnormal luminal narrowing with mucosal fold thickening and irregularity and possible ulceration in the pylorus and proximal duodenum Assessment and Plan - Assessment (1) Non-ST elevation [place] (NSTEMI) Code(s): I21.4 - Non-ST elevation (NSTEMI) myocardial infarction Status: Acute (2) Syncope and collapse Code(s): R55 - Syncope and collapse Status: Acute (3) GI bleed Code(s): K92.2 - Gastrointestinal hemorrhage, unspecified Status: Acute - Plan This is a 77-year-old CF with PMHx of Gastric ulcers and upper GI bleed approximately 2 months ago admitted for syncope and possible NSTEMI secondary to upper GI bleed and dysphagia, cardiology and GI assisting with management. Patient has underwent 2 units of packed red blood cells for transfusion possibly secondary to gastric ulcers. Cardiology recommending outpatient Lexiscan. Gastric ulcers/Upper GI Bleed Anemia Hemoglobin is holding steady today, continue Protonix, monitor H&H periodically EGD today suspicious for pyloric stenosis, Gastrografin study ordered by GI, will likely need pyloric dilatation NSTEMI/CHF NSTEMI secondary to GI bleed Per cardiology's note with vasovagal syncopal episode Elevated troponin with EKG changes, Carotid US was Negative on right, refused left side EF of 35-40% in otherwise normal appearing heart may indicate ischemic dysfunction Per cardiology plan for Lexiscan as outpatient Continue Metoprolol started by them Anorexia Decreased appetite for the last few months, likely due to dementia Cont. Marinol, will continue Speech therapy performed swallow eval, no abnormalities Hx of Dementia/Depression Cont. home Namenda and Mirtazepine DVT prophylaxis: SCD's
--- NOTE | 2018-01-10 16:15 | P.PNGI ---
Subjective Interval history: Patient sitting up at bedside, denies any nausea vomiting States tolerating small amounts of clear liquid Gastrografin study noted <Jes Fong - Last Filed: 01/10/18 16:08> Physical Exam Vital signs: Vital Signs 01/09/18 17:47 01/09/18 20:00 01/10/18 00:00 Temperature 97.1 F L 98.2 F 97.6 F Pulse Rate 83 65 85 Respiratory Rate 16 19 18 Blood Pressure 136/72 118/68 121/67 Pulse Oximetry 100 98 97 01/10/18 04:00 01/10/18 08:00 01/10/18 12:00 Temperature 97.4 F L 97 F L 97.2 F L Pulse Rate 64 72 75 Respiratory Rate 16 16 18 Blood Pressure 113/65 144/89 H 127/83 Pulse Oximetry 95 100 100 Intake & Output 01/09/18 01/10/18 01/10/18 18:59 06:59 18:59 Intake Total 200 / 200 240 / 240 Output Total 400 / 400 Balance 200 / 200 -160 / -160 Weight 49 kg 48.7 kg Intake: Oral 240 / 240 Anesthesia Amount 200 / 200 Output: Urine 400 / 400 Other: # Incontinent Voids 2 Date of Last Bowel Movement 01/08/18 # Incontinent Bowel Movements 2 - Constitutional no acute distress - Routine HEENT Exam Head: Present: normocephalic - Routine Respiratory Exam Present: CTA bilaterally. Absent: accessory muscle use - Routine Abdominal Exam Present: soft, normoactive bowel sounds. Absent: tenderness, guarding, firm - Routine Extremities Exam Present: full ROM. Absent: edema - Routine Skin Exam Present: dry, warm - Routine Neurological Exam Present: alert, oriented X3 - Routine Psychiatric Exam Present: normal affect, cooperative <Jes Fong - Last Filed: 01/10/18 16:08> Vital signs: Vital Signs 01/10/18 00:00 01/10/18 04:00 01/10/18 08:00 Temperature 97.6 F 97.4 F L 97 F L Pulse Rate 85 64 72 Respiratory Rate 18 16 16 Blood Pressure 121/67 113/65 144/89 H Pulse Oximetry 97 95 100 01/10/18 12:00 01/10/18 16:00 Temperature 97.2 F L 97.9 F Pulse Rate 75 68 Respiratory Rate 18 18 Blood Pressure 127/83 112/77 Pulse Oximetry 100 99 Intake & Output 01/10/18 01/10/18 01/11/18 06:59 18:59 06:59 Intake Total 240 / 240 240 / 240 Output Total 400 / 400 401 / 401 Balance -160 / -160 -161 / -161 Weight 48.7 kg Intake: Oral 240 / 240 240 / 240 Output: Urine 400 / 400 400 / 400 Stool Other: # Incontinent Voids 2 Date of Last Bowel Movement 01/08/18 01/10/18 # Incontinent Bowel Movements 2 <Shawn Zaldivar E - Last Filed: 01/10/18 20:50> Results - Labs CBC & Chem 7: 01/10/18 10:20 01/10/18 10:20 Laboratory Results - last 24 hr 01/10/18 01/10/18 10:20 10:20 WBC 5.3 RBC 3.70 L Hgb 11.2 L Hct 33.6 L MCV 90.9 MCH 30.3 MCHC 33.3 RDW 18.7 H Plt Count 333 MPV 7.5 Prelim Diff (Auto) Slide review pending Neut % (Auto) 75.0 H Lymph % (Auto) 15.9 [place] % (Auto) 5.5 Eos % (Auto) 3.3 Baso % (Auto) 0.3 Neut # (Auto) 4.0 Lymph # (Auto) 0.9 L [place] # (Auto) 0.3 Eos # (Auto) 0.2 Baso # (Auto) 0.0 WBC Differential Manual diff final Seg Neuts % (Manual) 79 H Lymphocytes % (Manual) 17 Monocytes % (Manual) 1 Eosinophils % (Manual) 3 Abs Neuts (Manual) 4.2 Differential Comment . Platelet Estimate Normal Platelet Morphology Normal RBC Morphology Normal Sodium 142 Potassium 4.1 Chloride 108 H Carbon Dioxide 23.9 Anion Gap 10 BUN 18 Creatinine 0.89 Estimated GFR 61 L Random Glucose 79 Calcium 8.6 Total Bilirubin 0.4 AST 20 ALT 23 Alkaline Phosphatase 58 Total Protein 5.7 L Albumin 2.3 L Prealbumin 9 L Microbiology 01/05/18 11:11 Blood - Peripheral Aerobic Blood Culture - Final No growth in 5 days 01/05/18 11:11 Blood - Peripheral Anaerobic Blood Culture - Final No growth in 5 days 01/05/18 11:01 Blood - Peripheral Aerobic Blood Culture - Final No growth in 5 days 01/05/18 11:01 Blood - Peripheral Anaerobic Blood Culture - Final No growth in 5 days - Imaging Impressions Gastrografin Study 01/09/18 00:00 CONCLUSION: Abnormal luminal narrowing with mucosal fold thickening and irregularity and possible ulceration in the pylorus and proximal duodenum <Jes Fong - Last Filed: 01/10/18 16:08> - Labs CBC & Chem 7: 01/10/18 10:20 01/10/18 10:20 Laboratory Results - last 24 hr 01/10/18 01/10/18 10:20 10:20 WBC 5.3 RBC 3.70 L Hgb 11.2 L Hct 33.6 L MCV 90.9 MCH 30.3 MCHC 33.3 RDW 18.7 H Plt Count 333 MPV 7.5 Prelim Diff (Auto) Slide review pending Neut % (Auto) 75.0 H Lymph % (Auto) 15.9 [place] % (Auto) 5.5 Eos % (Auto) 3.3 Baso % (Auto) 0.3 Neut # (Auto) 4.0 Lymph # (Auto) 0.9 L [place] # (Auto) 0.3 Eos # (Auto) 0.2 Baso # (Auto) 0.0 WBC Differential Manual diff final Seg Neuts % (Manual) 79 H Lymphocytes % (Manual) 17 Monocytes % (Manual) 1 Eosinophils % (Manual) 3 Abs Neuts (Manual) 4.2 Differential Comment . Platelet Estimate Normal Platelet Morphology Normal RBC Morphology Normal Sodium 142 Potassium 4.1 Chloride 108 H Carbon Dioxide 23.9 Anion Gap 10 BUN 18 Creatinine 0.89 Estimated GFR 61 L Random Glucose 79 Calcium 8.6 Total Bilirubin 0.4 AST 20 ALT 23 Alkaline Phosphatase 58 Total Protein 5.7 L Albumin 2.3 L Prealbumin 9 L Microbiology 01/05/18 11:11 Blood - Peripheral Aerobic Blood Culture - Final No growth in 5 days 01/05/18 11:11 Blood - Peripheral Anaerobic Blood Culture - Final No growth in 5 days 01/05/18 11:01 Blood - Peripheral Aerobic Blood Culture - Final No growth in 5 days 01/05/18 11:01 Blood - Peripheral Anaerobic Blood Culture - Final No growth in 5 days <Shawn Zaldivar - Last Filed: 10/24/18 20:50> Assessment and Plan - Plan 01/10/2018 Pyloric stenosis Gastrografin study findings as noted--> Abnormal luminal narrowing with mucosal fold thickening and irregularity and possible ulceration in the pylorus and proximal duodenum. Plan for EGD with pylorus dilation tomorrow. Plan of care discussed with patient who verbalizes understanding. Plan -Clear liquid diet for dinner -N.p.o. after midnight -Plan for EGD with pyloric dilation tomorrow -Continue PPI -Supportive care -Further recommendations to follow based on patient status and findings This patient has been seen by myself and Dr. Zaldivar and this note is written on his behalf - Attending Attestation Dr. Zaldivar <Jes Fong - Last Filed: 01/10/18 16:08> - Plan Patient seen and examined Agree with above Continue with current supportive care Monitor labs We will proceed with an EGD with pyloric dilatation tomorrow <Shawn Zaldivar - Last Filed: 01/10/18 20:50>
--- NOTE | 2018-01-10 16:56 | P.DIET ---
Nutritional Evaluation Type of nutrition evaluation: follow-up Nutrition screening: Poor PO Intake, MDC (MDC for malnutrition 01/09) Subjective Subjective Comments: Per MD note: "Brother reports she has had increasingly poor appetite over the last year. She tolerated Marinol well, still not hungry, but is less anxious. Objective - Diagnosis Syncope, atypical chest apin with dyspnea - Objective % IBW: 107 (IBW = 100#) Body Weight Used for Calculations: Actual (48 kg) Energy Needs - Lower Range (kCal/kg): 30 Energy Needs - Upper Range (kCal/kg): 35 Lower Limit kCal/kg (kCals): 1,440 Upper Limit kCal/kg (kCals): 1,680 Lower Limit Protein Factor (Grams per Kg): 1.1 Upper Limit Protein Factor (Grams per Kg): 1.3 Lower Protein Needs (Protein): 53 Upper Protein Needs (Protein): 62 Fluid Factor (ml/kg): 30 Estimated Fluid Needs (ml): 1,440 Dietitian Reviewed in Medical Record: Current diet, Curent medications, Intake & Output, Labs, Medical history Diet Order: Clear Liquids Objective Comments: PMH: multiple gastric ulcers, upper GI bleed Meds include: Marinol, remeron Assessment Assessment: Pt originally assessed on 01/07. Pt currently on a clear liquid diet. Gastrografin study noted. GI plans EGD with pyloric dilation tomorrow. RD will monitor results, diet advance and resume supplements. It is noted that the pt is on 2 medications that can potentially improve appetite: remeron and marinol. RD following. Recommendations: Advance diet per GI Dietitian to Monitor: Lab values, Supplement acceptance, Intake & Output, Diet tolerance, Weight change, PO Intake, Diet advancement, Swallow recommendations, Medical course
[2018-01-11] MEDS: Chlorhexidine Gluconate 2% 1 Pack (2 Cloths) TOPICAL SCH (06:20)
[2018-01-11] MEDS: Metoprolol Tartrate 25 MG Tablet PO SCH ×2 (09:17→22:24)
[2018-01-11] MEDS: DRONABINOL 2.5 MG CAPSULE PO SCH ×2 (09:17→22:24)
[2018-01-11] MEDS: Mirtazapine 15 MG Tablet PO SCH (09:17)
[2018-01-11] MEDS ORDERED: Phenylephrine/NS 1000 MCG/10ML Syringe IV.PUSH ONE (14:08)
[2018-01-11] MEDS ORDERED: Glycopyrrolate Inj 1 MG/5 ML Syringe IV.PUSH ONE (14:08)
[2018-01-11] MEDS ORDERED: Lidocaine PF 1% Inj 5 ML Syringe OTHER ONE (14:08)
--- NOTE | 2018-01-11 15:37 | FL ---
EXAM DATE: 01/11/2018 3:35 PM EDT AGE/SEX: 77 years / Female INDICATIONS: Pyloric dilatation and stent placement. CLINICAL DATA: This is the patient's subsequent encounter. Patient reports that signs and symptoms h ave been present for 4 - 6 days and indicates a pain score of Nonresponsive. MEDICAL/SURGICAL HISTORY: None. None. COMPARISON: No prior exams available for comparison. FINDINGS: A limited lateral view of the upper abdomen reveals an enteric stent present, location not clearly de termined on this single limited view. CONCLUSION: Please refer to procedural report for additional details. Electronically signed by: Juan J Cohen MD 01/11/2018 3:36 PM EDT
--- NOTE | 2018-01-11 15:50 | P.PN ---
Subjective Interval history: Nursing denies any deterioration since last night. Patient seen before her EGD procedure today, really wanting to go home. Denies any substantial symptoms of vomiting. Gives me permission to discuss her health condition with her nephew named Lewis. Physical Exam Vital signs: Vital Signs 01/10/18 16:00 01/10/18 20:00 01/11/18 00:00 Temperature 97.9 F 97.6 F 97.8 F Pulse Rate 68 79 62 Respiratory Rate 18 17 18 Blood Pressure 112/77 116/71 117/60 Pulse Oximetry 99 98 99 01/11/18 04:00 01/11/18 08:00 01/11/18 12:00 Temperature 97.4 F L 97.4 F L 97.2 F L Pulse Rate 64 71 82 Respiratory Rate 18 16 18 Blood Pressure 125/78 118/68 103/75 Pulse Oximetry 99 98 100 01/11/18 15:17 01/11/18 15:28 Temperature 97.7 F 97.7 F Pulse Rate 82 86 Respiratory Rate 16 16 Blood Pressure 118/74 130/74 Pulse Oximetry 98 98 Intake & Output 01/10/18 01/11/18 01/11/18 18:59 06:59 18:59 Intake Total 240 / 240 300 / 300 400 / 400 Output Total 401 / 401 120 / 120 Balance -161 / -161 180 / 180 400 / 400 Weight 48 kg Intake: Oral 240 / 240 300 / 300 Anesthesia Amount 400 / 400 Output: Urine 400 / 400 120 / 120 Stool 1 / Other: Date of Last Bowel Movement 01/10/18 # Bowel Movements 0 Narrative: Abdomen soft, nontender, nondistended Sitting up in bed, awake and alert, no acute distress No jaundice Unlabored breathing Results - Labs CBC & Chem 7: 01/10/18 10:20 01/10/18 10:20 - Imaging Impressions GI Procedure 01/11/18 00:00 CONCLUSION: Please refer to procedural report for additional details. Assessment and Plan - Assessment (1) Non-ST elevation CT (NSTEMI) Code(s): I21.4 - Non-ST elevation (NSTEMI) myocardial infarction Status: Acute (2) Syncope and collapse Code(s): R55 - Syncope and collapse Status: Acute (3) GI bleed Code(s): K92.2 - Gastrointestinal hemorrhage, unspecified Status: Acute - Plan This is a 77-year-old CF with PMHx of Gastric ulcers and upper GI bleed approximately 2 months ago admitted for syncope and possible NSTEMI secondary to upper GI bleed and dysphagia, cardiology and GI assisting with management. Patient has underwent 2 units of packed red blood cells for transfusion possibly secondary to gastric ulcers. Cardiology recommending outpatient Lexiscan. Underwent EGD on 01/09 noted to have some pyloric stenosis. Upper GI Bleed s/p 2 units of PRBCs. protonix EGD on 01/09 suspicious for pyloric stenosis, Gastrografin study ordered by GI, Now is status post repeat EGD with esophageal stenting and pyloric dilatation, on liquid diet for this evening Anemia h/h holding steady NSTEMI/CHF NSTEMI secondary to GI bleed Per cardiology's note with vasovagal syncopal episode Elevated troponin with EKG changes, Carotid US was Negative on right, refused left side EF of 35-40% in otherwise normal appearing heart may indicate ischemic dysfunction Per cardiology plan for Lexiscan as outpatient Continue Metoprolol started by them Anorexia Decreased appetite for the last few months, likely due to dementia Cont. Marinol, will continue Speech therapy performed swallow eval, no abnormalities Hx of Dementia/Depression Cont. home Namenda and Mirtazepine DVT prophylaxis: SCD's
--- NOTE | 2018-01-11 15:52 | P.PCN ---
Date of procedure: 01/11/18 Pre-op diagnosis: Pyloric stenosis with unrelenting nausea and vomiting Procedure: PROCEDURE PERFORMED EGD with fluoroscopy with biopsy with pyloric dilation with duodenal stent placement PROCEDURE: The procedure, risks and benefits were discussed with Patient/POA and informed consent was obtained. Anesthesia sedated Patient with Diprivan. Patient was placed in the left lateral decubitus position. EGD: The Pentax videoscope was introduced through the oropharynx and advanced to the second portion of the duodenum under direct visualization. Retroflexion was performed in the stomach. FINDINGS: The esophagus the patient was noted again to have severe esophagitis from top to bottom The stomach this appeared to be unremarkable except for the severely narrowed pylorus and so under fluoroscopy I passed the wire into the duodenum and over the wire we initially started with the balloon dilator size is 6, 7 and 8 postdilatation view was unremarkable I then dilated more with sizes 9, and 10 and I was at this point in time able to pass the pediatric upper scope through this pyloric stenosis after the complete evaluation I went ahead and passed a wire into the descending duodenum and over this wire I placed a 18 mm x 10 cm fully covered stent bridging the fistulous opening and the ulcer bridging the pylorus into the descending duodenum The duodenum after passing the pediatric upper scope into the duodenum I was able to find a large duodenal bulb ulcer with what looks like may be fistulous opening, quite a bit of inflammation but then the rest of the duodenum from the duodenal sweep and the descending duodenum this appeared to be unremarkable and within normal limits biopsies were taken from the ulcer edges and base from the duodenal bulb ESTIMATED BLOOD LOSS: Minimal SPECIMENS REMOVED: Duodenal bulb biopsies COMPLICATIONS: None IMPRESSION: Severe esophagitis Pyloric stenosis status post dilation and stenting Large duodenal bulb ulceration with possibly the beginning of the fistula this was stented PLAN: Await biopsies Continue PPI Monitor labs Repeat EGD in about 1 month with stent removal Low residue diet/baby food Avoid NSAIDs and aspirin Anesthesia: MAC Surgeon: Shawn Zaldivar Condition: stable Disposition: floor
[2018-01-12 08:20] VITALS: RESP 18
[2018-01-12] MEDS: Mirtazapine 15 MG Tablet PO SCH (08:28)
[2018-01-12] MEDS: Metoprolol Tartrate 25 MG Tablet PO SCH (08:29)
[2018-01-12] MEDS: DRONABINOL 2.5 MG CAPSULE PO SCH (09:01)
--- NOTE | 2018-01-12 11:00 | P.DS ---
Date of admission: 01/05/18 13:26 Primary care physician: UNKNOWN Brief History from admission: 77-year-old female with history of multiple gastric ulcers and upper GI bleed approximately 2 months ago presents to the ER with increased weakness that resulted in a syncopal episode earlier today. On presentation to the ER she demonstrated some mild ST depressions on EKG and mild elevation of her troponin level both which are concerning for cardiac causes of her syncope. Patient herself is a somewhat poor historian but I spoke to her brother who explained that she has had a decreasing appetite over the last 2 months. She was treated for multiple gastric ulcers but has been refusing some of her favorite foods at home. His feeling is that she has become weakened from lack of adequate nutrition and that this resulted in her syncopal episode. Patient denies that she has had any chest pain, she denies any diaphoresis. She does describe that she has had difficulty swallowing food, stating that it causes nausea but not committing to the idea that it causes a "stuck" sensation. She has some baseline dementia so it is unclear if she has been taking her pantoprazole as prescribed. Her living condition is that she lives at home alone. She denies any fevers, denies dysuria, denies any acute pain. DS: Diagnosis - Discharge Diagnosis (1) Non-ST elevation CT (NSTEMI) Status: Acute (2) Syncope and collapse Status: Acute (3) GI bleed Status: Acute DS: Medications - Discharge Medications Prescriptions: dronabinol [Marinol] 2.5 mg PO BID #60 cap metoprolol tartrate 12.5 mg PO BID #30 tab DS: Summary Hospital Course: Patient was admitted with a Protonix drip out of concern for possible GI bleed, transfused 2 units of blood, cardiology was consulted for minimally elevated troponins and recommended outpatient Lexiscan and cleared the patient for further GI workup. Underwent EGD which initially demonstrated esophagitis as well as pyloric stenosis. Patient had Gastrografin study done afterwards. Then patient had repeat EGD with pyloric stenting as well as duodenal biopsy. Patient was tolerating soft low residue diet well. Patient has met maximal benefit from hospitalization is clinically stable for discharge. She is to remain on a low fiber low residue diet until cleared by GI for further advancement. Per cardiology's recommendations patient is to get a Lexiscan done as an outpatient. - Time Spent with Patient Total time spent providing and/or coordinating discharge services: Less than 30 minutes - Quality: VTE Deep Vein Thrombosis/Pulmonary Embolism Present on Admission: No Exam Vital signs: Vital Signs 01/11/18 12:00 01/11/18 15:17 01/11/18 15:28 Temperature 97.2 F L 97.7 F 97.7 F Pulse Rate 82 82 86 Respiratory Rate 18 16 16 Blood Pressure 103/75 118/74 130/74 Pulse Oximetry 100 98 98 01/11/18 16:00 01/11/18 20:00 01/11/18 23:58 Temperature 97.7 F 97.8 F 97.9 F Pulse Rate 80 80 68 Respiratory Rate 16 16 18 Blood Pressure 130/79 122/68 124/66 Pulse Oximetry 98 99 98 01/12/18 00:00 01/12/18 04:00 01/12/18 08:00 Temperature 97.6 F 98.2 F Pulse Rate 68 73 72 Respiratory Rate 16 18 Blood Pressure 108/60 106/56 L Pulse Oximetry 99 Intake & Output 01/11/18 01/12/18 01/12/18 18:59 06:59 18:59 Intake Total 400 / 400 0 / 0 Balance 400 / 400 0 / 0 Weight 49.8 kg Intake: Oral 0 / 0 0 / 0 Anesthesia Amount 400 / 400 Other: # Voids 3 4 Date of Last Bowel Movement 01/10/18 01/11/18 # Bowel Movements 0 # Incontinent Bowel Movements 0 Narrative: Abdomen soft, nontender, nondistended Results Procedures completed during hospitalization: EGD and then repeat EGD Severe esophagitis Pyloric stenosis status post dilation and stenting Large duodenal bulb ulceration with possibly the beginning of the fistula this was stented Completed studies during hospitalization: Pending at discharge 01/09/18 14:55 Surgical [PTH] Routine Pending studies at discharge: Pending at discharge 01/11/18 07:30 Surgical [PTH] Routine - Impressions ITS Impressions Carotid Doppler Study 01/05/18 00:00 CONCLUSION: 1. Right Internal Carotid Artery: No hemodynamically significant stenosis 2. Left Internal Carotid Artery: Not evaluated, patient prematurely stopped the exam and did not want to continue to evaluate the left carotid artery. Head MRI 01/05/18 00:00 CONCLUSION: 1. There is diffuse atrophy. No evidence of acute stroke, hemorrhage, mass or mass effect. Chest X-Ray 01/05/18 10:47 CONCLUSION: Negative examination. Head CT 01/05/18 10:47 CONCLUSION: Negative CT Head non contrast. . Gastrografin Study 01/09/18 00:00 CONCLUSION: Abnormal luminal narrowing with mucosal fold thickening and irregularity and possible ulceration in the pylorus and proximal duodenum GI Procedure 01/11/18 00:00 CONCLUSION: Please refer to procedural report for additional details. Discharge Plan - Discharge Disposition Patient Disposition: 01 Discharge Home - Discharge Condition Condition: Stable - Discharge Order Discharge Orders: Discharge Order (Routine); Ordered 01/12/18 Ordered By: Abdullahi Perez - Physicians Team Primary Care Provider: UNKNOWN, Attending Provider: Abdullahi Perez Other Providers: Erica Matt MD ; Diaz Perales ; Don Segundo MD
[2018-01-12 12:08] VITALS: BP 94/59; PULSE 91; TEMP 98.1; O2SAT 98
== END 2018-01-12 12:39 | disposition home or self-care (01) ==
LOC: NEDA 10:11 → NEPE 10:11 → NEDA 13:26 → NEDH 19:17 → HIMC 01-06 05:50 → N04 01-09 16:58
PROVIDERS: ADMIT Hospitalist; ATTEND Hospitalist
PROC: PANENDO (2018-01-09 13:13)